=== PATIENT | female | born 1995 | race Caucasian/White ===

== ENCOUNTER 2023-08-27 21:02 | Outpatient (REF) | payer BC, SELFPAY ==
[2023-08-30 16:10] LABS: Age Gdln ACOG Testing Note (.); IGP, rfx Aptima HPV ASCU Note (.)
== END 2023-08-27 21:03 | disposition home or self-care (01) ==
LOC: LAB 21:02
PROVIDERS: Visit Provider Obstetrics & Gynecology
DX: Z01.419 Encounter for gynecological examination (general) (routine) without abnormal findings (principal)
CPT/HCPCS: G0145

== ENCOUNTER 2024-09-01 21:26 | Outpatient (REF) | payer BC, SELFPAY ==
--- OUTSIDE RECORDS SUMMARY | 2024-09-01 21:29 | XMS_ITS | CCD ---
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 Name Role Phone Ashley Mulligan Unavailable Unavailable Ashley Mulligan Unavailable Unavailable SONI ROGERS~[phone] UNKNOWN Unavailable Un available MISJuana, DR DODD Primary Care Unavailable ROHIT ., DR ADAIR Admitting Unavailable ROHIT ., DR ADAIR Attending Unavailable ROHIT ., DR ADAIR Consulting Unavailable MANA BEE Attending Unavailable UMESH BERMUDEZ Attending Unavailable Allergies Allergy Classification Reported Allergen(s) Allergy Type Date of Onset Reaction(s) Facility (1 source) Penicillin Drug Allergy [facility] Repository Problems Problem Classification Problem Date Documented Da te Episodic/Chronic Other screening for suspected conditions (not mental disorders or infectious disease) (4 sources) Encounter for screening for malignant neoplasm of cervix; Translations: [ENC SCREENING MALIG NEOPLASM CERV] Onset: 08-21-2022 Episodic Results Test Name Value Interpretation Reference Range Facil ity PAP ACOG PANEL 2: 21 to 29on 08-28-2022 . . [facility] Comment on above: Result Comment: Performed at: WB Performed By: #### [id number] #### [facility] [address] [place] [address] Dr. Randee Cody Age Gdln ACOG Testing - Normal [facility] Comment on above: Performed By: #### [id number] #### [facility] [address] [address] [address] Randee Cody DIAGNOSIS: Comment [facility] Comment on above: Result Comment: NEGATIVE FOR INTRAEPITHE LIAL LESION OR MALIGNANCY. THIS SPECIMEN WAS RESCREENED PART OF OUR CEMENT BREAKER PROGRAM. Performed at: WB Performed By: #### [id number] #### [facility] [address] [address] [address] Randee Cody Methodology: Comment Normal [facility] Comment on above: Result Comment: This liquid based ThinPr ep(R) pap test was screened with the use of an image guided system. Performed at: WB Performed By: #### [id number] #### [facility] [address] [place] [address] Dr. Randee Cody Note: Comment Normal [facility] Comment on above: Result Comment: The Pap smear is a [place] test designed to aid in the detection of premalignant and malignant conditions of the uterine cervix. It is not a diagnostic procedure and should not be used as the sole means of detecting cervical cancer. Both false-positive and false-negative reports do occur. . Performed at: WB Performed By: #### [id number] #### [facility] [address] [place] [address] Dr. Randee Cody Performed by: Comment Normal [facility] Comment on above: Result Comment: Raya Humphries, Cytotec hnologist (ASCP) Performed at: [facility] Performed By: #### [id number] #### [facility] [address] [place] [address] Dr. Randee Cody QC reviewed by: Comment Normal [facility] Comment on above: Result Comment: Lucien Johnston Dietary Internship (ASCP) Performed at: WB Performed By: #### [id number] #### [facility] [address] [place] [address] Dr. Randee Cody Reflex Criteria: Comment Normal [facility] Comment on above: Result Comment: The HPV DNA reflex crite froylan were not met with this specimen result therefore, no HPV testing was performed. . Performed at: WB Performed By: #### [id number] #### [facility] [address] [address] [address] Randee Cody Specimen adequacy: Comment Normal [facility] Comment on above: Result Comment: Satisfactory for evaluat ion. Endocervical and/or squamous metaplastic cells (endocervical component) are present. Performed at: WB Performed By: #### [id number] #### [facility] [address] [address] [address] Randee Cody Encounters Encounter Date Encounter Type Care Provider Facility Start: 01-01-2024 End: 01-01-2024 ambulatory UMESH BERMUDEZ Not Available Start: 08-27-2023 End: 08-27-2023 ambulatory MANA BEE Not Available Start: 08-21-2022 End: 08-21-[address] DOCTOR BURRIS Facility: Start: 01-04-2018 End: 01-05-2018 Amb[place] Mulligan [place] [place] Date Payer Category Payer Unknown [id number] 2018 Unknown 1996 Unknown [id number] [id number] [id number] 1996 Unknown [id number] 2.16.84 [id number] 1996 Unknown [id number] 2.16.84 [id number] 1974 Unknown [id number] 2.16.84 [id number] 1959 Self-pay [id number] Summary Purpose Family History No Family History Records FoundNo Family History Records FoundNo Family History Records Found Advance Directives No Advanced Directives Records FoundNo Advanced Directives Records FoundNo Advanced Directives Records Found Additional Source Comments INFORMATION SOURCE (unrecogn ized section and content) DATE CREATED AUTHOR 01/05/2018 [facility] DATE CREATED AUTHOR AUTHOR'S ORGANIZ ATION 08/29/2022 [facility] DATE CREATED AUTHOR AUTHOR'S ORGANIZ ATION 01/03/2024 [facility] [place] [facility] FOR RECORDS PERTAINING TO PATIENTS WHO ARE OR HAVE BEEN ENROLLED IN A CHEMICAL DEPENDENCY/SUBSTANCEABUSE PROGRAM, SOME INFORMATION MAY BE OMITTED. This clinical summary was aggregated from multiple sources. Caution should be exercised in using it in the provision of clinical care. This summary normalizes information from multiple sources, and as a consequence, information in this document may materially change the coding, format and clinical context of patient data. In addition, data may be omitted in some cases. CLINICAL DECISIONS SHOULD BE BASED ON THE PRIMARY CLINICAL RECORDS. [employer] [facility]. provides no warranty or guarantee of the accuracy or completeness of information in this document.
== END 2024-09-01 21:27 | disposition home or self-care (01) ==
LOC: LAB 21:26
PROVIDERS: Visit Provider Obstetrics & Gynecology
DX: Z01.419 Encounter for gynecological examination (general) (routine) without abnormal findings (principal)
CPT/HCPCS: 88175

== ENCOUNTER 2024-12-29 13:59 | Outpatient (OUT) | payer BC, SELFPAY ==
[2024-12-29 14:51] LABS: Basophils Percent Auto 0.5 % (0.2-2.0); Eosinophils Absolute Auto 0.1 10^3/uL (0.0-0.7); Eosinophils Percent Auto 1.6 % (0.9-7.0); Hematocrit 34.9 % (36.0-48.0); Hemoglobin 12.1 g/dL (12.0-16.0); Immature Granulocytes Abs Auto 0.02 10^3/uL (0.00-0.03); Immature Granulocytes Pct Auto 0.2 % (0.0-0.5); Lymphocytes Percent Auto 22.1 % (20.5-60.0); Mean Corpuscular HGB Conc 34.7 g/dL (29.9-35.2); Mean Corpuscular Hemoglobin 30.5 pg (26.7-34.0); Mean Corpuscular Volume 87.9 fL (81.0-99.0); Mean Platelet Volume 9.5 fL (9.5-13.5); Monocytes Absolute Auto 0.5 10^3/uL (0.3-0.8); Monocytes Percent Auto 5.3 % (1.7-12.0); Neutrophils Absolute Auto 6.2 10^3/uL (1.4-6.5); Neutrophils Percent Auto 70.3 % (43.0-75.0); Platelet Count 332 10^3/uL (150-450); Red Blood Count 3.97 10^6/uL (4.20-5.40); Red Cell Distribution Width 12.9 % (11.0-15.0); White Blood Count 8.8 10^3/uL (4.0-11.0)
[2024-12-29 15:05] LABS: Estimated Average Glucose 105 mg/dL; Glycohemoglobin A1C 5.3 % (4.5-6.2)
[2024-12-29 15:08] LABS: Amphetamine Screen Urine NEGATIVE (NEGATIVE); Barbiturates Screen Urine NEGATIVE (NEGATIVE); Benzodiazepines Screen Urine NEGATIVE (NEGATIVE); Buprenorphine Screen Urine NEGATIVE (NEGATIVE); Cannabinoid Screen Urine NEGATIVE (NEGATIVE); Cocaine Screen Urine NEGATIVE (NEGATIVE); Methadone Screen Urine NEGATIVE (NEGATIVE); Methamphetamines Screen Urine NEGATIVE (NEGATIVE); Opiate Screen Urine NEGATIVE (NEGATIVE); Oxycodone Screen Urine NEGATIVE (NEGATIVE); Phencyclidine Screen Urine NEGATIVE (NEGATIVE); Tricyclic Antidepressant Urine NEGATIVE (NEGATIVE)
[2024-12-30 05:07] LABS: HIV Ab/p24 Ag Screen Non Reactive (Non Reactive)
[2024-12-30 06:09] LABS: HBsAg Screen Negative (Negative); HCV Ab Non Reactive (Non Reactive)
[2024-12-30 08:08] LABS: Rubella Antibodies, IgG 1.27 index (Immune >0.99)
[2024-12-30 11:08] LABS: Rapid Plasma Reagin, Quant Non Reactive titer (NonRea<1:1)
== END 2024-12-29 14:00 | disposition home or self-care (01) ==
LOC: LAB 14:02
PROVIDERS: Visit Provider Obstetrics & Gynecology
DX: Z34.01 Encounter for supervision of normal first pregnancy, first trimester (principal); N92.6 Irregular menstruation, unspecified
CPT/HCPCS: 36415; 80307; 83036; 85025; 86592; 86762; 86803; 86850; 86900; 86901; 87077; 87086; 87186; 87340; 87389

== ENCOUNTER 2025-04-13 08:28 | Outpatient (OUT) | payer BC, SELFPAY ==
--- OUTSIDE RECORDS SUMMARY | 2025-04-13 08:35 | XMS_ITS | CCD ---
Author Organization [facility] Care Team Providers Care Food Service Name Role Phone Ashley Mulligan Unavailable Unavailable Ashley Mulligan Unavailable Unavailable KEMI ROGERS~[phone] UNKNOWN Unavailable Un available MISC, DR DODD Primary Care Unavailable SUHAIL ., DR ADAIR Admitting Unavailable SUHAIL ., DR ADAIR Attending Unavailable SUHAIL ., DR ADAIR Consulting Unavailable Taylor Roberto NP Unavailable Unavailable Primary Care Provider UnavailMANA Smart Attending Unavailable MANA JANG Attending Unavailable MANA JANG Attending Unavailable MANA JANG Referring Unavailable KEMI REGAN Attending Unavailable Allergies Allergy Classification Reported Allergen(s) Allergy Type Date of Onset Reaction(s) Facility (1 source) Penicillin Drug Allergy [facility] Repository (18 sources) Penicillin G Drug Allergy 08-22-2023 Anaphylaxis [facility] Medications Current Medications Medication Drug Class(es) Dates Sig (Normalized) Sig (Original) magnesium oxide 400 mg oral tablet (4 sources) Start: 02-05-2025 End: 03-07-2025 take 1 tablet by mouth once daily magnesium oxide (Mag-Ox) 400 MG tablet Indications: Nonintractable headache, unspecified chronicity pattern, unspecified headache type Take 1 tablet (400 mg) by mouth Daily 30 tablet 6 02/05/2025 03/07/2025 Active nitrofurantoin, macrocrystals 25 mg / nitrofurantoin, monohydrate 75 mg oral capsule (2 sources) Nitrofuran Antibacterial Start: 01-12-2025 End: 01-19-2025 take 1 capsule by mouth in the morning nitrofurantoin, macrocrystal-monohy drate, (Macrobid) 100 MG capsule Indications: Urinary tract infection without hematuria, site unspecified Take 1 capsule (100 mg) by mouth in the morning and 1 capsule (100 mg) before bedtime. Do all this for 7 days. 14 capsule 01/12/2025 01/19/2025 Active ondansetron 4 mg oral tablet (11 sources) Serotonin-3 Receptor Antagonist Start: 01-12-2025 take 1 tablet by mouth every six hours as needed for nausea and vomiting and nausea and nausea ondansetron (Zofran) 4 MG tablet Indications: Nausea Take 1 tablet (4 mg) by mouth every 6 (six) hours if needed for nausea or vomiting for up to 30 doses Take 1 tablet by mouth every 6 hours as needed for nausea. 30 tablet 1 01/12/2025 Active MV-Min-Fe Fum-FA-DHA ( 1 PO) (14 sources) MV-Min- Fe Fum-FA-DHA ( 1 PO) Take 1 tablet by mouth Daily Active Problems Problem Classification Problem Date Documented Date Episodic/Chronic Immunizations and screening for infectious disease (2 sources) Exposure to sexually transmissible disorder; Translations: [Contact with and (suspected) exposure to infections with a predominantly sexual mode of transmission] 02-11-2025 Episodic Menstrual disorders (1 source) Missed period; Translations: [Irregular menstruation, unspecified] 12-11-2024 Chronic Nausea and vomiting (2 sources) Nausea; Translations: [Nausea] 01-12-2025 Episodic Other female genital disorders (2 sources) Vaginal discharge; Translations: [Other specified noninflammatory disorders of vagina] 02-11-2025 Episodic Other and delivery including normal (10 sources) ; Translations: [Encounter for supervision of normal , unspecified, unspecified trimester] 12-11-2024 Episodic Other screening for suspected conditions (not mental disorders or infectious disease) (8 sources) Encounter for screening for malignant neoplasm of cervix; Translations: [Patient encounter status] Onset: 08-21-2022 Episodic Residual codes; unclassified (2 sources) Gestation period, 13 weeks; Translations: [13 weeks gestation of ] 01-12-2025 Episodic Residual codes; unclassified (2 sources) Gestation period, 17 weeks; Translations: [17 weeks gestation of ] 02-11-2025 Episodic Residual codes; unclassified (2 sources) Gestation period, 21 weeks; Translations: [21 weeks gestation of ] 09-03-2025 Episodic Residual codes; unclassified (2 sources) Gestation period, 25 weeks; Translations: [25 weeks gestation of ] 04-09-2025 Episodic Urinary tract infections (2 sources) Urinary tract infectious disease; Translations: [Urinary tract infection, site not specified] 01-12-2025 Episodic Results Test Name Value Interpretation Reference Range Facility Urinalysis macro (dipstick) panel (U)on 04-09-2025 Bilirubin, UA Negative Negative - 4(70) +++ mg/dL [facility] Blood, UA Negative Negative - 50 Dennis/mcL [facility] Clarity, UA Cloudy [facility] re Color, UA Yellow [facility] Glucose, UA Negative Negative - 1999(110) ++++ mg/dL [facility] Interpretation and review of laboratory results Abnormal [facility] Ketones, UA Negative Negative - 160(16) ++++ mg/dL [facility] Leukocytes, UA Negative Negative - 500+++ Wilman/mcL [facility] Nitrite, UA Negative Negative - Positive [facility] pH, UA 8 5 - [address] [facility] e Protein, UA Positive Negative - 1999(20) ++++ mg/dL [facility] Spec Grav, UA 1.01 1 - 1.03 [facility] Urobilinogen, UA 1.0 0.2 - 12 mg/dL [facility] RECURRENT VAGINITIS (HTRX)on 02-12-2025 ATOPOBIUM VAGINAE 0 [facility] ATOPOBIUM VAGINAE Not detected [facility] BVAB 2,3 (BACTERIAL VAGINOSIS ASSOCIATED BACTERIA 2, 3); MOBILUNCUS SPP 0 [facility] BVAB 2,3 (BACTERIAL VAGINOSIS ASSOCIATED BACTERIA 2, 3); MOBILUNCUS SPP Not detected [facility] ABIOLA ALBICANS, PARAPSILOSIS, TROPICALIS 0 [facility] ABIOLA ALBICANS, PARAPSILOSIS, TROPICALIS Not detected [facility] ABIOLA GLABRATA 0 [facility] lthcare ABIOLA GLABRATA Not detected [facility] ealthcare ABIOLA KRUSEI 0 [facility] hcare ABIOLA KRUSEI Not detected [facility] [place] CHLAMYDIA TRACHOMATIS 0 [facility] CHLAMYDIA TRACHOMATIS Not detected [facility] GARDNERELLA VAGINALIS 0 [facility] GARDNERELLA VAGINALIS Not detected [facility] MEGASPHAERA (TYPES 1, 2) 0 [facility] MEGASPHAERA (TYPES 1, 2) Not detected [facility] MYCOPLASMA GENITALIUM 0 [facility] MYCOPLASMA GENITALIUM Not detected [facility] NEISSERIA GONORRHOEAE 0 [facility] NEISSERIA GONORRHOEAE Not detected [facility] TRICHOMONAS VAGINALIS 0 [facility] TRICHOMONAS VAGINALIS Not detected [facility] US OB 14+ WEEKS ANATOMY SCAN on 02-11-2025 US OB 14+ WEEKS ANATOMY SCAN FINDINGS: Comparison December 11, 2024. A single, live intrauterine is present with normal cardiac rate of 153 beats per minute. Normal activity and amniotic fluid volume. Morphology is grossly normal. The placenta is posterior, inferior aspect 4.2 cm from the closed internal cervical os (cervical length 4.5 cm). The current sonographic age is 21 weeks and 4 days, based on the following measurements: BPD 5.0 cm (21 weeks, 2 days) Head Circumference 18.9 cm (21 weeks, 1 day) Abdominal Circumference 16.4 cm (21 weeks, 3 days) Femur Length 3.8 cm (22 weeks, 1 days) Presentation Cephalic Placenta Posterior Weight (g) by Percentile 56.8 % * These measurements result in an estimated date of delivery of July 18, 2025. The current estimated weight is 440 grams (1 pound, 0 ounces). IMPRESSION: Single, live intrauterine , current sonographic age of 21 weeks and 4 days, with an estimated date of delivery of July 18, 2025. * Estimated Weight (g) by Percentile is based upon an accurate estimated age based on last menstrual period. TRANSCRIBED BY: ELECTRONICALLY SIGNED BY: Dino Gama MD Normal Not Available Comment on above: Order Comment: US OB ANATOMY SINGLE W US OB CERVICAL LENGTH Estimated Date of Delivery: 07/19/25 Gestational Age as of 02/11/2025: 17w3d Urinalysis macro (dipstick) panel (U)on 02-11-2025 Bilirubin, UA Negative Negative - 4(70) +++ mg/dL [facility] Blood, UA Negative Negative - 50 Dennis/mcL [facility] Clarity, UA Clear [facility] re Color, UA Yellow [facility] Glucose, UA Negative Negative - 2000(110) ++++ mg/dL [facility] Interpretation and review of laboratory results Normal [facility] Ketones, UA Negative Negative - 160(16) ++++ mg/dL [facility] Leukocytes, UA Negative Negative - 500+++ Wilman/mcL [facility] Nitrite, UA Negative Negative - Positive [facility] pH, UA 6 5 - 9 [facility] Protein, UA Negative Negative - 1999(20) ++++ mg/dL [facility] Spec Grav, UA 1.01 1 - 1.03 [facility] Urobilinogen, UA 1.0 0.2 - 12 mg/dL [facility] Urinalysis macro (dipstick) panel (U)on 01-12-2025 Bilirubin, UA Negative Negative - 4(70) +++ mg/dL [facility] Blood, UA Negative Negative - 50 Dennis/mcL [facility] Clarity, UA Clear [facility] re Color, UA Yellow [facility] e Glucose, UA Negative Negative - 1999(110) ++++ mg/dL [facility] Interpretation and review of laboratory results Abnormal [facility] Ketones, UA Negative Negative - 160(16) ++++ mg/dL [facility] Leukocytes, UA Negative Negative - 500+++ Wilman/mcL [facility] Nitrite, UA Negative Negative - Positive [facility] pH, UA 6.5 5 - 9 [facility] Protein, UA Trace Negative - 1999(20) ++++ mg/dL [facility] Spec Grav, UA 1.01 1 - 1.03 [facility] Urobilinogen, UA 0.2 0.2 - 12 mg/dL [facility] ALL CBC WITH AUTO DIFFon BASOPHILS ABSOLUTE AUTO 0 [facility] Basophils/100 WBC (Bld) 0.5 % 0.2 - 2.0 % [facility] Eosinophils/100 WBC (Bld) 1.6 % 0.9 - 7.0 % [facility] Erythrocyte distribution width (RBC) [Ratio] 12.9 % 11.0 - 15.0 % [facility] Hematocrit (Bld) [Volume fraction] 34.9 % Low 36.0 - 48.0 % [facility] Hemoglobin (Bld) [Mass/Vol] 12.1 g/dL 12.0 - 16.0 g/dL [facility] IMMATURE GRANULOCYTES ABS AUTO 0.02 [facility] Immature granulocytes/100 WBC (Bld) 0.2 % 0.0 - 0.5 % [facility] Interpretation and review of laboratory results Abnormal [facility] LYMPHOCYTES ABSOLUTE AUTO 2 [facility] Lymphocytes/100 WBC (Bld) 22.1 % 20.5 - 60.0 % [facility] MCH (RBC) [Entitic mass] 30.5 pg 26.7 - 34.0 pg [facility] MCHC (RBC) [Mass/Vol] 34.7 g/dL 29.9 - 35.2 g/dL [facility] MCV (RBC) [Entitic vol] 87.9 fL 81.0 - 99.0 fL [facility] MONOCYTES ABSOLUTE AUTO 0.5 [facility] Monocytes/100 WBC (Bld) 5.3 % 1.7 - 12.0 % [facility] NEUTROPHILS ABSOLUTE AUTO 6.2 [facility] Neutrophils/100 WBC (Bld) 70.3 % 43.0 - 75.0 % [facility] Platelet mean volume (Bld) [Entitic vol] 9.5 fL 9.5 - 13.5 fL [facility] are TBH EO # 0.1 [facility] TBH PLT 332 [facility] TB RBC 3.97 Low [facility] TBH WBC 8.8 [facility] HCG ( test) Ql (U)o n 12-11-2024 Interpretation and review of laboratory results Abnormal [facility] Preg Test, Ur Positive Negative [facility] US OB TRANSVAGINALon 025 US OB TRANSVAGINAL EXAM: US OB TRANSVAGINAL HISTORY: Dating. COMPARISON: None available. TECHNIQUE: Two-dimensional transvaginal grayscale ultrasound imaging of the pelvis was performed. FINDINGS: The uterus demonstrates a normal homogeneous echotexture. The cervix measures 3.9 cm in length and the cervical os is closed. The bilateral ovaries are not visualized. No fluid is present within the cul-de-sac. There is a single, live intrauterine gestation identified with a heart rate of 173 beats per minute and a crown-rump length measurement of 1.8 cm, correlating to a gestational age of 8 weeks 2 days (+/- 5 days). There is no subchorionic hemorrhage visualized. A yolk sac is visualized. IMPRESSION: 1. Single, live intrauterine gestation 8 weeks, 4 days by LMP. Today's ultrasound measurements correlate with a gestational age of 8 weeks 2 days (+/- 5 days). JOSE by today's ultrasound is 07/21/2025. 2. Bilateral ovaries not visualized. Interpreted by: Electronically signed by JOSIE FONTANA II, MD, PHD at 12-Dec-2024 08:26:33 AM [facility] Normal Not Available Comment on above: Order Comment: US OB TRANSVAGINAL No LMP recorded. Urinalysis macro (dipstick) panel (U)on 12-11-2024 Bilirubin, UA Negative Negative - 4(70) +++ mg/dL [facility] Blood, UA Negative Negative - 50 Dennis/mcL [facility] Clarity, UA Clear [facility] Enclarity[facility] re Color, UA Yellow [facility] Gengo e Glucose, UA Negative Negative - 1999(110) ++++ mg/dL [facility] Interpretation and review of laboratory results Normal [facility] Ketones, UA Negative Negative - 160(16) ++++ mg/dL [facility] Leukocytes, UA Negative Negative - 500+++ Wilman/mcL [facility] Nitrite, UA Negative Negative - Positive [facility] pH, UA 5.5 5 - 9 [facility] Gengo e Protein, UA Negative Negative - 1999(20) ++++ mg/dL [facility] Spec Grav, UA 1.02 1 - 1.03 [facility] Urobilinogen, UA 1.0 0.2 - 12 mg/dL [facility] IGP,APTIMA HPV,AGE GDLNon AGE GDLN ACOG TESTING Note . [facility] Comment on above: TESTS RESULT FLAG UN ITS REF RANGE LAB Clinician Provided Cytology Information Source.............Cervix;Endocervix No. of containers..01 ThinPrep Vial Age Algo ACOG Darlene... -06 08 FLAG LEGEND: L-Low Normal,H-High Normal,LL-Alert Low,HH-Alert High <-Panic Low,>-Panic High,A-Abnormal,AA-Critical Abnormal Performed at: 01 =G [facility] [address] [place] [address] Aga Cade MD, IGP, RFX APTIMA HPV ASCU Note . [facility] Comment on above: TESTS RESULT FLAG UN ITS REF RANGE LAB DIAGNOSIS: 02 NEGATIVE FOR INTRAEPITHELIAL LESION OR MALIGNANCY. Specimen adequacy: 02 Satisfactory for evaluation. Endocervical and/or squamous metaplastic cells (endocervical component) are present. Performed by: Carter Dunn, Lamination Operator ([facility]) . 02 Note: Note 03 The Pap smear is a screening test designed to aid in the detection of premalignant and malignant conditions of the uterine cervix. It is not a diagnostic procedure and should not be used as the sole means of detecting cervical cancer. Both false-positive and false-negative reports do occur. Test Methodology: Note 03 This liquid based ThinPrep(R) pap test was screened with the use of an image guided system. . 02 The HPV DNA reflex criteria were not met with this specimen result therefore, no HPV testing was performed. FLAG LEGEND: L-Low Normal,H-High Normal,LL-Alert Low,HH-Alert High <-Panic Low,>-Panic High,A-Abnormal,AA-Critical Abnormal Performed at: 02 [facility] [address] [address] [place] [address] Pa Schilling MD, 03 WB [facility] [address] [address] Aga Cade MD, Performed at: =G - [facility] [address] [id number] Straightedge Machine Operator Helper: Aga Cade MD, Phone: [phone] Performed at: [facility] [address] [address] [place], [place] [id number] Straightedge Machine Operator Helper: Pa Schilling MD, Phone: [phone] BRUSH-SPATULA CERVIX ENDOCERVIX [facility] Cytology Cervical or vaginal smear or scraping studyOrdered By: Winifred Bhatia on 08-27-2023 [facility] PAP ACOG PANEL 2: 21 to 29on 08-28-2022 . . Normal [facility] Comment on above: Result Comment: Perf ormed at: WB Performed By: #### [id number] #### [facility] [address] [place] [address] Dr. Randee Cody Age Gdln ACOG Testing - Normal [facility] Comment on above: Performed By: #### [id number] #### [facility] [address] [place] [address] Dr. Randee Cody DIAGNOSIS: Comment Normal [facility] Comment on above: Result Comment: NEGA TIVE FOR INTRAEPITHELIAL LESION OR MALIGNANCY. THIS SPECIMEN WAS RESCREENED PART OF OUR STONE SANDBLASTER PROGRAM. Performed at: WB Performed By: #### [id number] #### [facility] [address] [place] [address] Dr. Randee Cody Methodology: Comment Normal [facility] Comment on above: Result Comment: This liquid based ThinPrep(R) pap test was screened with the use of an image guided system. Performed at: WB Performed By: #### [id number] #### [facility] [address] [address] [address] Randee Cody Note: Comment Normal [facility] Comment on above: Result Comment: The Pap smear is a screening test designed to aid in the detection of premalignant and malignant conditions of the uterine cervix. It is not a diagnostic procedure and should not be used as the sole means of detecting cervical cancer. Both false-positive and false-negative reports do occur. . Performed at: WB Performed By: #### [id number] #### [facility] [address] [address] [address] Randee Cody Performed by: Comment Normal [facility] Comment on above: Result Comment: Martha Humphries, Lamination Operator (ASCP) Performed at: [facility] Performed By: #### [id number] #### [facility] [address] [address] [address] Randee Cody QC reviewed by: Comment Normal [facility] Comment on above: Result Comment: Fernanda Mena, Supervisory Lamination Operator (ASCP) Performed at: WB Performed By: #### [id number] #### [facility] [address] [address] [address] Randee Cody Reflex Criteria: Comment Normal [facility] Comment on above: Result Comment: The HPV DNA reflex criteria were not met with this specimen result therefore, no HPV testing was performed. . Performed at: WB Performed By: #### [id number] #### [facility] [address] [address] [address] Randee Cody Specimen adequacy: Comment Normal [facility] Comment on above: Result Comment: Sati sfactory for evaluation. Endocervical and/or squamous metaplastic cells (endocervical component) are present. Performed at: WB Performed By: #### [id number] #### [facility] [address] [place] [address] Dr. Randee Cody Vital Signs Date Time Vital Sign Value Performing Clinician Faci mayry 04-09-2025 08:57-0400 Body mass index (BMI) [Ratio] 37.13 kg/m2 Le Thompson VEGETABLE I FARMWORKER Work Phone: [facility] 04-09-2025 08:57-0400 Body weight 101.21 kg Le Thompson VEGETABLE I FARMWORKER Work Phone: [facility] 04-09-2025 08:57-0400 Diastolic blood pressure 78 mm[Hg] Le Thompson VEGETABLE I FARMWORKER Work Phone: [facility] 04-09-2025 08:57-0400 Systolic blood pressure 130 mm[Hg] Le Thompson VEGETABLE I FARMWORKER Work Phone: [facility] 03-11-2025 09:46-0400 Body mass index (BMI) [Ratio] 36.41 kg/m2 Kemi Regan PA Work Phone: [facility] 03-11-2025 09:46-0400 Body weight 99.25 kg Kemi [place] PA Work Phone: [facility] 03-11-2025 09:46-0400 Diastolic blood pressure 82 mm[Hg] Kemi [place] PA Work Phone: [facility] 03-11-2025 09:46-0400 Systolic blood pressure 126 mm[Hg] Kemi Ritu PA Work Phone: [facility] 02-11-2025 14:04-0400 Body mass index (BMI) [Ratio] 35.3 kg/m2 Mana Suhail DO Work Phone: [facility] 02-11-2025 14:04-0400 Body weight 96.22 kg Mana Suhail DO Work Phone: [facility] 02-11-2025 14:04-0400 Diastolic blood pressure 72 mm[Hg] Mana Suhail DO Work Phone: [facility] 02-11-2025 14:04-0400 Systolic blood pressure 124 mm[Hg] Mana Suhail DO Work Phone: [facility] 01-12-2025 09:44-0400 Body mass index (BMI) [Ratio] 34.11 kg/m2 Mana Suhail DO Work Phone: [facility] 01-12-2025 09:44-0400 Body weight 92.99 kg Mana Suhail DO Work Phone: [facility] 01-12-2025 09:44-0400 Diastolic blood pressure 72 mm[Hg] Mana Suhail DO Work Phone: [facility] 01-12-2025 09:44-0400 Systolic blood pressure 120 mm[Hg] Mana Suhail DO Work Phone: [facility] 12-11-2024 14:50-0400 Body mass index (BMI) [Ratio] 34.11 kg/m2 [facility] 12-11-2024 14:50-0400 Body weight 92.99 [facility] 09-01-2024 14:11-0500 Body mass index (BMI) [Ratio] 35.41 kg/m2 Mana Suhail DO Work Phone: [facility] 09-01-2024 14:11-0500 Body weight 96.53 kg Mana Suhail DO Work Phone: [facility] 09-01-2024 14:11-0500 Diastolic blood pressure 74 mm[Hg] Mana Suhail DO Work Phone: [facility] 09-01-2024 14:11-0500 Systolic blood pressure 116 mm[Hg] Mana Suhail DO Work Phone: [facility] Healthcare Encounters Encounter Date Encounter Type Care Provider Facility Start: 04-09-2025 End: 04-09-2025 Fransico flowssanti Thompson NP Work Phone: [facility] Franny RODRIGUEZ Start: 04-09-2025 End: 04-09-2025 Fransico Thompson NP Work Phone: [facility] Franny OBGYN Start: 04-09-2025 End: 04-09-2025 flow sheet Le Thompson NP Work Phone: [facility]AVANNA[facility] Comment on above: 25 weeks gestation o f ([facility]); Second trimester ([facility]); Diabetes mellitus screening Start: 03-11-2025 End: 03-11-2025 flow sheet Kemi MADDOX Work Phone: [facility] RODRIGUE[facility] Comment on above: Second trimester pre gnancy ([facility]); 21 weeks gestation of ([facility]) Start: 03-11-2025 End: 03-11-2025 ambulatory KEMI REGAN Not Available Start: 02-11-2025 End: 02-11-2025 Bamboo flowsheet Mana Suhail DO Work Phone: [facility]BSAV[facility] Start: 02-11-2025 End: 02-12-2025 Bamboo flowsheet Mana Suhail DO Work Phone: [facility] Start: 02-11-2025 End: 02-12-2025 External Result Encounter Mana Suhail DO Work Phone: [facility] Unsolicited Start: 02-11-2025 End: 02-11-2025 flow sheet Mana Suhail DO Work Phone: [facility] RODRIGUEZ Comment on above: 17 weeks gestation o f ([facility]); Second trimester ([facility]); Screening, , for anatomic survey ([facility]); Exposure to STD; Vaginal discharge Start: 02-11-2025 End: 02-11-2025 ambulatory MANA SUHAIL Not Available Start: 01-12-2025 End: 01-12-2025 Bamboo flowsheet Mana Suhail DO Work Phone: [facility] Start: 01-12-2025 End: 01-12-2025 Bamboo flowsheet Mana Suhail DO Work Phone: [facility] Start: 01-12-2025 End: 01-12-2025 flow sheet Mana Suhail DO Work Phone: [facility] Comment on above: Urinary tract infect ion without hematuria, site unspecified (Primary Dx); 13 weeks gestation of ([facility]); Second trimester ([facility]); Nausea Start: 01-12-2025 End: 01-12-2025 ambulatory MANA SUHAIL Not Available Start: 12-29-2024 End: 12-29-2024 [facility] Result Encounter Mana Suhail DO Work Phone: [facility] Unsolicited Start: 12-29-2024 End: 12-29-2024 [facility] Result Encounter Mana Suhail DO Work Phone: [facility] Unsolicited Start: 12-11-2024 End: 12-11-2024 Office outpatient visit 5 minutes [facility] Ob Suhail Nurse [facility] Comment on above: GA: 8w4d Start: 12-11-2024 End: 12-11-2024 ambulatory MANA SUHAIL Not Available Start: 09-01-2024 End: 09-01-2024 Bamboo flowsheet Mana Suhail DO Work Phone: [facility] Start: 09-01-2024 End: 09-05-2024 Bamboo flowsheet Mana Suhail DO Work Phone: [facility] Start: 09-01-2024 End: 09-05-2024 [facility] Result Encounter Mana Suhail DO Work Phone: [facility] Unsolicited Start: 09-01-2024 End: 09-01-2024 Patient encounter procedure Mana Suhail DO Work Phone: [facility] Work Phone: Start: 09-01-2024 End: 09-01-2024 Periodic preventive med est patient 18-39 yrs Mana Suhail DO Work Phone: [facility] Comment on above: Well woman exam with routine gynecological exam Start: 09-01-2024 End: 09-01-2024 ambulatory MANA SUHAIL Not Available Start: 08-21-2022 End: 08-21-[address] DOCTOR BURRIS Facility: Start: 01-04-2018 End: 01-05-2018 Ambulatory Ashley Mullgian Facility:[facility] Procedures Date Procedure Procedure Detail Performing Clinician Start: 04-09-2025 Urnls dip stick/tabl et rgnt non-auto w/o micrscp Le Thompson VEGETABLE I FARMWORKER Work Phone: Start: 02-11-2025 RECURRENT VAGINITIS (HTRX) Mana Suhail DO Work Phone: Start: 02-11-2025 Urnls dip stick/tabl et rgnt non-auto w/o micrscp Mana Suhail DO Work Phone: Start: 01-12-2025 Urnls dip stick/tabl et rgnt non-auto w/o micrscp Mana Suhail DO Work Phone: Start: 12-29-2024 ALL CBC WITH AUTO DIFF Mana Suhail DO Work Phone: Start: 12-11-2024 End: 12-11-2024 Urnls dip stick/tablet rgnt non-auto w/o [facility] Mana Suhail DO Work Phone: Start: 09-01-2024 IGP,APTIMA HPV,AGE GDLN Mana Suhail DO Work Phone: Start: 08-27-2023 Cytp cerv/vag auto t hin layer prep mnl screen Mana Suhail DO Work Phone: Plan of Treatment Date Care Activity Detail Author Start: 09-07-2025 End: 09-07-2025 Patient encounter procedure [facility] Start: 04-30-2025 End: 04-30-2025 Patient encounter procedure 04/30/2025 8:50 AM EDT Routine [facility] [address] [place] [address] [place], Kemi, PA [address] [place] [address] JACQUELINE RODRIGUEZ Start: 04-09-2025 End: 04-09-2026 CBC panel - Blood by Automated count CBC Lab Routine Diabetes mellitus screening Expected: 04/09/2025 (Approximate), Expires: 04/09/2026 [facility] Work Phone: Comment on above: Expected: 04/09/2025 (Approximate), Expires: 04/09/2026 Start: 04-09-2025 End: 04-09-2026 Measurement of glucose 1 hour after glucose challenge for glucose tolerance test Glucose tolerance, 1 hour Lab Routine Diabetes mellitus screening Expected: 04/09/2025 (Approximate), Expires: 04/09/2026 [facility] Comment on above: Expected: 04/09/2025 (Approximate), Expires: 04/09/2026 Start: 04-09-2025 End: 04-09-2025 Patient encounter procedure JACQUELINE RODRIGUEZ Comment on above: Arrived Start: 03-11-2025 End: 03-11-2025 Patient encounter procedure 03/11/2025 9:50 AM EDT Routine [facility]QUELINE [facility]UE[facility] [address] [facility] [place] [id number] Kemi Regan PA [address] [place] [address] JACQUELINE RODRIGUEZ Start: 03-11-2025 End: 03-11-2025 Professional / ancillary services management 03/11/2025 8:30 AM EDT Ancillary Procedure JACQUELINE RODRIGUEZ [address] [place] [id number] JACQUELINE RODRIGUEZ Start: 02-11-2025 End: 03-14-2025 Alpha fetoprotein, maternal Alpha fetoprotein, maternal Lab Routine 17 weeks gestation of ([facility]) Second trimester ([facility]) Expected: 02/11/2025 (Approximate), Expires: 03/14/2025 [facility] Comment on above: Expected: 02/11/2025 (Approximate), Expires: 03/14/2025 Start: 02-11-2025 End: 05-14-2025 US for US OB 14+ weeks anatomy scan Imaging Routine Screening, , for anatomic survey ([facility]) Expected: 02/11/2025, Expires: 05/14/2025 [facility] Comment on above: Expected: 02/11/2025 , Expires: 05/14/2025 Start: 02-11-2025 End: 02-11-2025 Patient encounter procedure 02/11/2025 1:50 PM EDT Routine JACQUELINE [place] OBS[facility]NA[facility] [address] [place] [phone] Mana Jang DO [address] [place] [address] Arrived [facility] Comment on above: Arrived Start: 01-12-2025 End: 01-12-2025 Patient encounter procedure [facility] Comment on above: Arrived Start: 12-11-2024 End: 12-11-2025 ABO/Rh ABO/Rh Lab Routine Missed menses , unspecified gestational age Expected: 12/11/2024 (Approximate), Expires: 12/11/2025 [facility] Comment on above: Expected: 12/11/2024 (Approximate), Expires: 12/11/2025 Start: 12-11-2024 End: 12-11-2025 Blood type and Indirect antibody screen panel - Blood Type and screen Lab Routine Missed menses , unspecified gestational age Expected: 12/11/2024 (Approximate), Expires: 12/11/2025 [facility] Work Phone: Comment on above: Expected: 12/11/2024 (Approximate), Expires: 12/11/2025 Start: 12-11-2024 End: 12-11-2025 Drugs of abuse panel - Urine by Screen method Rapid drug screen, urine Lab Routine , unspecified gestational age Encounter for supervision of normal first in first trimester Expected: 12/11/2024 (Approximate), Expires: 12/11/2025 [facility] Comment on above: Expected: 12/11/2024 (Approximate), Expires: 12/11/2025 Start: 09-01-2024 End: 09-01-2024 Patient encounter procedure 09/01/2024 2:00 PM EST Office Visit [facility] [address] [place] [phone] Mana Jang DO [address] [place] [address] Arrived [facility] Comment on above: Arrived Start: 03-09-2024 Influenza vaccination Influenza Vacc ine (#1) [facility] Bacteria identified in Urine by Culture Urine culture Microbiology Routine Missed menses Ordered: 12/11/2024 [facility] Comment on above: Ordered: 12/11/2024 CBC W Auto Different ial panel - Blood CBC and differential Lab Routine Missed menses , unspecified gestational age Ordered: 12/11/2024 [facility] Comment on above: Ordered: 12/11/2024 CHLAMYDIA TRACHOMATI S (GENITO/STI) CHLAMYDIA TRACHOMATIS (GENITO/STI) Lab Routine Exposure to STD Ordered: 02/11/2025 [facility] Comment on above: Ordered: 02/11/2025 Cytology Cervical or vaginal smear or scraping study Pap Smear Pathology and Cytology Routine Well woman exam with routine gynecological exam Ordered: 09/01/2024 [facility] Work Phone: Comment on above: Ordered: 09/01/2024 Hemoglobin A1c/Hemoglobin.total in Blood Hemoglobin A1c Lab Routine Missed menses , unspecified gestational age Ordered: 12/11/2024 [facility] Comment on above: Ordered: 12/11/2024 Hepatitis B virus surface Ag [Presence] in Serum or Plasma by Immunoassay Hepatitis B surface antigen Lab Routine Missed menses , unspecified gestational age Ordered: 12/11/2024 [facility] Comment on above: Ordered: 12/11/2024 Hepatitis C virus Ab [Presence] in Serum or Plasma by Immunoassay Hepatitis C antibody Lab Routine Missed menses , unspecified gestational age Ordered: 12/11/2024 [facility] Comment on above: Ordered: 12/11/2024 HIV-1/HIV-2 antigen/antibody combination immunoassay HIV-1 and HIV-2 antibodies Lab Routine Missed menses , unspecified gestational age Ordered: 12/11/2024 [facility] Comment on above: Ordered: 12/11/2024 Neisseria gonorrhoea e DNA [Presence] in Unspecified specimen by SHAE with probe detection Neisseria gonorrhea DNA probe, direct Lab Routine Exposure to STD Ordered: 02/11/2025 [facility] Comment on above: Ordered: 02/11/2025 Reagin Ab [Presence] in Serum by RPR RPR Lab Routine Missed menses , unspecified gestational age Ordered: 12/11/2024 [facility] Comment on above: Ordered: 12/11/2024 Rubella antibody, IgG Rubella an tibody, IgG Lab Routine Missed menses , unspecified gestational age Ordered: 12/11/2024 [facility] Comment on above: Ordered: 12/11/2024 SURESWAB(R) ADVANCED VAGINITIS PLUS, TMA SURESWAB(R) ADVANCED VAGINITIS PLUS, TMA Pathology and Cytology Routine Vaginal discharge Ordered: 02/11/2025 [facility] Work Phone: Comment on above: Ordered: 02/11/2025 Payers Date Payer Category Payer [facility] [id number] 2023 Unknown [id number] 2018 Unknown 1996 Unknown [id number] 1996 Unknown [id number] 1996 Unknown [id number] 1996 Unknown [id number] 1996 Unknown [id number] 1996 Unknown [id number] 1996 Unknown [id number] 1996 Unknown [id number] 1974 Unknown [id number] 1959 Self-pay [id number] Social History Date Type Detail Facility Start: 08-26-2023 Tobacco smoking stat [facility] Never smoked tobacco [facility] Start: 08-26-2023 Tobacco use and exposure Smokeless t obacco non-user [facility] Start: 01-01-2024 End: 02-11-2025 Alcoholic beverage intake Current drinker of alcohol (finding) [facility] Start: 01-01-2024 End: 09-01-2024 History of Social function [facility] Start: 01-01-2024 End: 09-01-2024 Tobacco use panel [facility] Start: 08-26-2023 Alcohol Comment Occasional [facility] Start: 1995 Sex assigned at Not on file [facility] Start: 10-26-2024 [facility] Clinical Notes 09-01-2024 to 04-09-2025 Le Thompson NP - 04/09/2025 9:00 AM TAN Craven - 03/11/2025 9:50 AM Patrice Gunter LPN - 02/11/2025 1:50 PM EDTLe Thompson, PREM - 01/12/2025 9:40 AM EDT Note Date & Type Note Facility 04-09-2025 History of Presen t illness Narrative Reason for Appointment: Patient ID: Madelyn Lopez is a 29 y.o. female who presents for Routine Visit Patient presents today for Return OB appointment. MEDICATIONS Current Outpatient Medications Medication Instructions ondansetron (ZOFRAN) 4 mg, Oral, Every 6 hours PRN, Take 1 tablet by mouth every 6 hours as needed for nausea. MV-Min-Fe Fum-FA-DHA ( 1 PO) 1 tablet, Daily ALLERGIES Allergies Allergen Reactions Penicillin G Anaphylaxis PROBLEMS Active Ambulatory Problems Diagnosis Date Noted No Active Ambulatory Problems Resolved Ambulatory Problems Diagnosis Date Noted No Resolved Ambulatory Problems Past Medical History: Diagnosis Date BCP ( control pills) initiation Encounter for well woman exam Obesity (BMI 30-39.9) Vaginal discharge HISTORY PAST MEDICAL HISTORY SOCIAL HISTORY Past Medical History: Diagnosis Date BCP ( control pills) initiation Encounter for well woman exam Obesity (BMI 30-39.9) Vaginal discharge Social History Tobacco Use Smoking status: Never Smokeless tobacco: Never Substance Use Topics Alcohol use: Yes Comment: Occasional Drug use: Never FAMILY HISTORY No family history on file. SURGICAL HISTORY History reviewed. No pertinent surgical history. REVIEW OF SYSTEMS Review of Systems: Review of Systems Constitutional: Negative. HENT: Negative. Eyes: Negative. Respiratory: Negative. Cardiovascular: Negative. Gastrointestinal: Negative. Genitourinary: Negative. Musculoskeletal: Negative. Skin: Negative. Neurological: Negative. All other systems reviewed and are negative. Hematological: Negative. Endocrine: Negative. Allergic/Immunologic: Negative. OBJECTIVE Objective: Physical Exam Constitutional: Appearance: Normal appearance. She is well-developed. Cardiovascular: Rate and Rhythm: Normal rate and regular rhythm. Pulmonary: Effort: Pulmonary effort is normal. Breath sounds: Normal breath sounds. Abdominal: General: Bowel sounds are normal. There is no distension. Palpations: Abdomen is soft. Tenderness: There is no abdominal tenderness. There is no guarding or rebound. Musculoskeletal: General: No swelling. Normal range of motion. Right lower leg: No edema. Left lower leg: No edema. Neurological: Mental Status: She is alert and oriented to person, place, and time. Skin: General: Skin is warm and dry. Psychiatric: Mood and Affect: Mood normal. Behavior: Behavior normal. Vitals and nursing note reviewed. Exam conducted with a draftsperson present. Vitals: Estimated body mass index is 37.13 kg/m as calculated from the following: Height as of 08/21/22: 5' 5 . Weight as of this encounter: 223 lb 1.9 oz. BP: 130/78 Patient's last menstrual period was 10/12/2024. ASSESSMENT & PLAN ICD-10-CM 1. 25 weeks gestation of ([facility]) Z3A.25 POCT urinalysis dipstick manually resulted 2. Second trimester ([facility]) Z34.92 POCT urinalysis dipstick manually resulted 3. Diabetes mellitus screening Z13.1 CBC Glucose tolerance, 1 hour CBC Glucose tolerance, 1 hour Return OB: Patient presents today for a routine obstetrics appointment. Patient is currently 25w4d . Patient states she is doing well but has complaints of being tired due to current . Patient has verbalizes frequent movement. labor precautions was discussed/given and patient was instructed to perform kick counts three times a day. Orders Placed This Encounter Procedures CBC Glucose tolerance, 1 hour POCT urinalysis dipstick manually resulted Follow Up: Patient is to return to office in 3 week for routine OB appointment. Documented by Le Thompson NP on behalf of: Le Thompson NP documented in this encounter [facility] 03-11-2025 History of Presen t illness Narrative Reason for Appointment: Patient ID: Madelyn Lopez is a 29 y.o. female who presents for Routine Visit Patient presents today for Return OB appointment. MEDICATIONS Current Outpatient Medications Medication Instructions ondansetron (ZOFRAN) 4 mg, Oral, Every 6 hours PRN, Take 1 tablet by mouth every 6 hours as needed for nausea. MV-Min-Fe Fum-FA-DHA ( 1 PO) 1 tablet, Daily ALLERGIES Allergies Allergen Reactions Penicillin G Anaphylaxis PROBLEMS Active Ambulatory Problems Diagnosis Date Noted No Active Ambulatory Problems Resolved Ambulatory Problems Diagnosis Date Noted No Resolved Ambulatory Problems Past Medical History: Diagnosis Date BCP ( control pills) initiation Encounter for well woman exam Obesity (BMI 30-39.9) Vaginal discharge HISTORY PAST MEDICAL HISTORY SOCIAL HISTORY Past Medical History: Diagnosis Date BCP ( control pills) initiation Encounter for well woman exam Obesity (BMI 30-39.9) Vaginal discharge Social History Tobacco Use Smoking status: Never Smokeless tobacco: Never Substance Use Topics Alcohol use: Yes Comment: Occasional Drug use: Never FAMILY HISTORY No family history on file. SURGICAL HISTORY No past surgical history on file. REVIEW OF SYSTEMS Review of Systems: Review of Systems Constitutional: Negative. HENT: Negative. Eyes: Negative. Respiratory: Negative. Cardiovascular: Negative. Gastrointestinal: Negative. Genitourinary: Negative. Musculoskeletal: Negative. Skin: Negative. Neurological: Negative. All other systems reviewed and are negative. Hematological: Negative. Endocrine: Negative. Allergic/Immunologic: Negative. OBJECTIVE Objective: Physical Exam Constitutional: Appearance: Normal appearance. She is normal weight. HENT: Head: Normocephalic. Cardiovascular: Rate and Rhythm: Normal rate. Pulses: Normal pulses. Pulmonary: Effort: Pulmonary effort is normal. Breath sounds: Normal breath sounds. Abdominal: Palpations: Abdomen is soft. Musculoskeletal: General: Normal range of motion. Neurological: General: No focal deficit present. Mental Status: She is alert and oriented to person, place, and time. Psychiatric: Mood and Affect: Mood normal. Behavior: Behavior normal. Thought Content: Thought content normal. Judgment: Judgment normal. Vitals and nursing note reviewed. Vitals: Estimated body mass index is 36.41 kg/m as calculated from the following: Height as of 08/21/22: 5' 5 . Weight as of this encounter: 218 lb 12.8 oz. BP: 126/82 Patient's last menstrual period was 10/12/2024. ASSESSMENT & PLAN ICD-10-CM 1. Second trimester ([facility]) Z34.92 Urine dip 2. 21 weeks gestation of ([facility]) Z3A.21 Urine dip Return OB: Patient presents today for a routine obstetrics appointment. Patient is currently 21w3d . Patient states she is doing well but has complaints of being tired due to current . Patient has verbalizes frequent movement. Orders Placed This Encounter Procedures Urine dip Follow Up: Patient is to return to office in 4 week for routine OB appointment. Documented by TAN Edward on behalf of: TAN Edward documented in this encounter [facility] 02-11-2025 History of Presen t illness Narrative Reason for Appointment: Patient ID: Madelyn Lopez is a 29 y.o. female who presents for No chief complaint on file. Patient presents today for STD Check. and Return OB appointment. MEDICATIONS Current Outpatient Medications Medication Instructions magnesium oxide (MAG-OX) 400 mg, Oral, Daily ondansetron (ZOFRAN) 4 mg, Oral, Every 6 hours PRN, Take 1 tablet by mouth every 6 hours as needed for nausea. MV-Min-Fe Fum-FA-DHA ( 1 PO) 1 tablet, Daily ALLERGIES Allergies Allergen Reactions Penicillin G Anaphylaxis PROBLEMS Active Ambulatory Problems Diagnosis Date Noted No Active Ambulatory Problems Resolved Ambulatory Problems Diagnosis Date Noted No Resolved Ambulatory Problems Past Medical History: Diagnosis Date BCP ( control pills) initiation Encounter for well woman exam Obesity (BMI 30-39.9) Vaginal discharge HISTORY PAST MEDICAL HISTORY SOCIAL HISTORY Past Medical History: Diagnosis Date BCP ( control pills) initiation Encounter for well woman exam Obesity (BMI 30-39.9) Vaginal discharge Social History Tobacco Use Smoking status: Never Smokeless tobacco: Never Substance Use Topics Alcohol use: Yes Comment: Occasional Drug use: Never FAMILY HISTORY No family history on file. SURGICAL HISTORY History reviewed. No pertinent surgical history. REVIEW OF SYSTEMS Review of Systems: Review of Systems Constitutional: Negative. HENT: Negative. Eyes: Negative. Respiratory: Negative. Cardiovascular: Negative. Gastrointestinal: Negative. Genitourinary: Negative. Musculoskeletal: Negative. Skin: Negative. Neurological: Positive for headaches. All other systems reviewed and are negative. Hematological: Negative. Endocrine: Negative. Allergic/Immunologic: Negative. OBJECTIVE Objective: Physical Exam Constitutional: Appearance: Normal appearance. She is well-developed. Genitourinary: Vulva normal. Cardiovascular: Rate and Rhythm: Normal rate and regular rhythm. Pulmonary: Effort: Pulmonary effort is normal. Breath sounds: Normal breath sounds. Abdominal: General: Bowel sounds are normal. There is no distension. Palpations: Abdomen is soft. Tenderness: There is no abdominal tenderness. There is no guarding or rebound. Musculoskeletal: General: No swelling. Normal range of motion. Right lower leg: No edema. Left lower leg: No edema. Neurological: Mental Status: She is alert and oriented to person, place, and time. Skin: General: Skin is warm and dry. Psychiatric: Mood and Affect: Mood normal. Behavior: Behavior normal. Vitals and nursing note reviewed. Exam conducted with a draftsperson present. Vitals: Estimated body mass index is 35.3 kg/m as calculated from the following: Height as of 23: 5' 5 . Weight as of this encounter: 212 lb 1.9 oz. BP: 124/72 Patient's last menstrual period was 10/12/2024. ASSESSMENT & PLAN ICD-10-CM 1. 17 weeks gestation of ([facility]) Z3A.17 POCT urinalysis dipstick manually resulted Alpha fetoprotein, maternal Alpha fetoprotein, maternal 2. Second trimester ([facility]) Z34.92 POCT urinalysis dipstick manually resulted Alpha fetoprotein, maternal Alpha fetoprotein, maternal 3. Screening, , for anatomic survey ([facility]) Z36.89 US OB 14+ weeks anatomy scan US OB 14+ weeks anatomy scan 4. Exposure to STD Z20.2 CHLAMYDIA TRACHOMATIS (GENITO/STI) Neisseria gonorrhea DNA probe, direct 5. Vaginal discharge N89.8 SURESWAB(R) ADVANCED VAGINITIS PLUS, TMA Return OB/Annual Exam: Patient presents today for a annual exam/routine obstetrics appointment. Patient is currently 17w3d . Patient states she is doing well but has complaints of nausea in the morning. Cultures was obtained without difficulty and patient was given orders for anatomy scan and msAFP to be obtained. Pt having headaches during , magnesium not helping. Discussed adding tylenol with codeine, or claritin. Pt advised to apply heat to back of neck, and get a facial or massage to increase lymphatics. Pt voiced understanding. Orders Placed This Encounter Procedures US OB 14+ weeks anatomy scan CHLAMYDIA TRACHOMATIS (GENITO/STI) Neisseria gonorrhea DNA probe, direct Alpha fetoprotein, maternal POCT urinalysis dipstick manually resulted Follow Up: Patient is to schedule annual exam for next year and return to office in 4 weeks for OB appointment. Documented by Zhanna Gunter LPN on behalf of: Mana Jang DO documented in this encounter [facility] 01-12-2025 History of Presen t illness Narrative Reason for Appointment: Patient ID: Madelyn Lopez is a 29 y.o. female who presents for Routine Visit Patient presents today for Return OB appointment. MEDICATIONS Current Outpatient Medications Medication Instructions MV-Min-Fe Fum-FA-DHA ( 1 PO) 1 tablet, Daily ALLERGIES Allergies Allergen Reactions Penicillin G Anaphylaxis PROBLEMS Active Ambulatory Problems Diagnosis Date Noted No Active Ambulatory Problems Resolved Ambulatory Problems Diagnosis Date Noted No Resolved Ambulatory Problems Past Medical History: Diagnosis Date BCP ( control pills) initiation Encounter for well woman exam Obesity (BMI 30-39.9) Vaginal discharge HISTORY PAST MEDICAL HISTORY SOCIAL HISTORY Past Medical History: Diagnosis Date BCP ( control pills) initiation Encounter for well woman exam Obesity (BMI 30-39.9) Vaginal discharge Social History Tobacco Use Smoking status: Never Smokeless tobacco: Never Substance Use Topics Alcohol use: Yes Comment: Occasional Drug use: Never FAMILY HISTORY No family history on file. SURGICAL HISTORY History reviewed. No pertinent surgical history. REVIEW OF SYSTEMS Review of Systems: Review of Systems Constitutional: Negative. HENT: Negative. Eyes: Negative. Respiratory: Negative. Cardiovascular: Negative. Gastrointestinal: Negative. Genitourinary: Negative. Musculoskeletal: Negative. Skin: Negative. Neurological: Positive for dizziness. All other systems reviewed and are negative. Hematological: Negative. Endocrine: Negative. Allergic/Immunologic: Negative. OBJECTIVE Objective: Physical Exam Constitutional: Appearance: Normal appearance. She is well-developed. Cardiovascular: Rate and Rhythm: Normal rate and regular rhythm. Pulmonary: Effort: Pulmonary effort is normal. Breath sounds: Normal breath sounds. Abdominal: General: Bowel sounds are normal. There is no distension. Palpations: Abdomen is soft. Tenderness: There is no abdominal tenderness. There is no guarding or rebound. Musculoskeletal: General: No swelling. Normal range of motion. Right lower leg: No edema. Left lower leg: No edema. Neurological: Mental Status: She is alert and oriented to person, place, and time. Skin: General: Skin is warm and dry. Psychiatric: Mood and Affect: Mood normal. Behavior: Behavior normal. Vitals and nursing note reviewed. Exam conducted with a draftsperson present. Vitals: Estimated body mass index is 34.11 kg/m as calculated from the following: Height as of 2/13/23: 5' 5 . Weight as of this encounter: 205 lb. BP: 120/72 Patient's last menstrual period was 10/12/2024. ASSESSMENT & PLAN ICD-10-CM 1. Urinary tract infection without hematuria, site unspecified N39.0 2. 13 weeks gestation of ([facility]) Z3A.13 POCT urinalysis dipstick manually resulted 3. Second trimester ([facility]) Z34.92 POCT urinalysis dipstick manually resulted 4. Nausea R11.0 Return OB: Patient presents today for a routine obstetrics appointment. Patient is currently 13w1d . Patient states she is doing well but has complaints of being tired due to current . Patient has verbalizes frequent movement. labor precautions was discussed/given and patient was instructed to perform kick counts three times a day. Orders Placed This Encounter Procedures POCT urinalysis dipstick manually resulted Follow Up: Patient is to return to office in 4 week for routine OB appointment. Patient with complaints of nausea and some dizziness and intermittent increased heart rate. Patient is going to increase fluid intake and replace electrolytes as discussed. Ecoli noted on urine culture and will send in Macrobid 100mg BID and Zofran. Patient will call the office if symptoms do not resolve or increased heart rate is more frequent will discuss EKG and Echo if needed. No complaints of CP or SOB. Documented by Le Thompson NP on behalf of: Mana Jang DO documented in this encounter [facility] 12-11-2024 History of Presen t illness Narrative Reason for Appointment: Patient ID: Madelyn Lopez is a 29 y.o. female who presents for Amenorrhea Patient presents today for a Nurse OB Intake appointment. Patient is 8w4d with a Estimated Date of Delivery: 07/19/25 OB History Para Term AB Living 1 SAB IAB Ectopic Multiple Live Births # Outcome Date GA Lbr Asa/2nd Weight Sex Type Anes PTL Lv 1 Current Obstetric Comments Last pap smear 05/16/2021 neg Current Medications: has a current medication list which includes the following prescription(s): mv-min-fe fum-fa-dha. Medical History: Active Ambulatory Problems Diagnosis Date Noted No Active Ambulatory Problems Resolved Ambulatory Problems Diagnosis Date Noted No Resolved Ambulatory Problems Past Medical History: Diagnosis Date BCP ( control pills) initiation Encounter for well woman exam Obesity (BMI 30-39.9) Vaginal discharge No family history on file. Social History Tobacco Use Smoking status: Never Smokeless tobacco: Never Substance Use Topics Alcohol use: Yes Comment: Occasional Drug use: Never History reviewed. No pertinent surgical history. Allergies Allergen Reactions Penicillin G Anaphylaxis Vitals: Estimated body mass index is 34.11 kg/m as calculated from the following: Height as of 08/21/22: 5' 5 . Weight as of this encounter: 205 lb. BP: Patient's last menstrual period was 10/12/2024. Assessment/Plan Diagnoses and all orders for this visit: Missed menses - Type and screen; Future - ABO/Rh; Future - CBC and differential - Hemoglobin A1c - RPR - Rubella antibody, IgG - Hepatitis B surface antigen - Hepatitis C antibody - HIV-1 and HIV-2 antibodies - Urine culture - POCT , urine manually resulted - POCT urinalysis dipstick manually resulted , unspecified gestational age - Type and screen; Future - ABO/Rh; Future - CBC and differential - Hemoglobin A1c - RPR - Rubella antibody, IgG - Hepatitis B surface antigen - Hepatitis C antibody - HIV-1 and HIV-2 antibodies - Rapid drug screen, urine; Future Encounter for supervision of normal first in first trimester - Rapid drug screen, urine; Future Nurse Note: OB Intake: OB Intake: Patient presents today for first OB visit. Patients history has been reviewed in great detail including any potential risks. Patient signed consent forms and patient desires testing in both trimesters. Patient currently has no complaints and has been advised to drink 6-8 glasses of water a day, eat no raw or undercooked meat, and stay away from [facility]. Patient has also been advised to not change litter boxes and eat 6 small meals a day. Patient has been consulted regarding the do's and don'ts of . Patient was given labs and all questions and concerns were answered. Follow Up: Patient is to return in 4 weeks for routine OB appointment. Follow Up: Patient is to return in 4 weeks for routine OB appointment. Follow Up: Patient is to have labs drawn at directed and return to office for initial OB appointment with provider. Patient may call office as needed with any concerns or questions. Nurse Visit Completed by: Kenia Carter LPN documented in this encounter [facility] 09-01-2024 History of Presen t illness Narrative Reason for Appointment: Patient ID: Madelyn Lopez is a 28 y.o. female who presents for Well Women Visit Patient presents today for Annual Exam. MEDICATIONS No current outpatient medications ALLERGIES Allergies Allergen Reactions Penicillin G Anaphylaxis PROBLEMS Active Ambulatory Problems Diagnosis Date Noted No Active Ambulatory Problems Resolved Ambulatory Problems Diagnosis Date Noted No Resolved Ambulatory Problems Past Medical History: Diagnosis Date BCP ( control pills) initiation Encounter for well woman exam Obesity (BMI 30-39.9) Vaginal discharge HISTORY PAST MEDICAL HISTORY SOCIAL HISTORY Past Medical History: Diagnosis Date BCP ( control pills) initiation Encounter for well woman exam Obesity (BMI 30-39.9) Vaginal discharge Social History Tobacco Use Smoking status: Never Smokeless tobacco: Never Substance Use Topics Alcohol use: Yes Comment: Occasional Drug use: Never FAMILY HISTORY No family history on file. SURGICAL HISTORY History reviewed. No pertinent surgical history. REVIEW OF SYSTEMS Review of Systems: Review of Systems All other systems reviewed and are negative. OBJECTIVE Objective: Physical Exam Constitutional: Appearance: Normal appearance. She is well-developed. Genitourinary: Vulva normal. Breasts: Breasts are soft. Right: Normal. Left: Normal. Cardiovascular: Rate and Rhythm: Normal rate and regular rhythm. Pulmonary: Effort: Pulmonary effort is normal. Breath sounds: Normal breath sounds. Abdominal: General: Bowel sounds are normal. There is no distension. Palpations: Abdomen is soft. Tenderness: There is no abdominal tenderness. There is no guarding or rebound. Musculoskeletal: General: No swelling. Normal range of motion. Right lower leg: No edema. Left lower leg: No edema. Neurological: Mental Status: She is alert and oriented to person, place, and time. Skin: General: Skin is warm and dry. Psychiatric: Mood and Affect: Mood normal. Behavior: Behavior normal. Vitals and nursing note reviewed. Exam conducted with a draftsperson present. Vitals: Estimated body mass index is 35.41 kg/m as calculated from the following: Height as of 08/21/22: 5' 5 . Weight as of this encounter: 212 lb 12.8 oz. BP: 116/74 No LMP recorded. ASSESSMENT & PLAN ICD-10-CM 1. Well woman exam with routine gynecological exam Z01.419 Pap Smear Annual Exam: Patient presents today for an annual exam. Patient states she is doing well and has no complaints. Pap was obtained without difficulty. Follow Up: Patient is to return in one year for annual unless needed otherwise. Documented by Angelina Plunkett LPN on behalf of: Mana Jang DO documented in this encounter [facility] Healthcare Evaluation note Diagnosis Well woman exam with routine gynecological exam Routine gynecological examination [facility] Diagnosis Missed menses , unspecified gestational age Encounter for supervision of normal first in first trimester documented [facility]* Diagnosis Urinary tract infection without hematuria, site unspecified- Primary 13 weeks gestation of ([facility]) Second trimester ([facility]) state, incidental Nausea Nausea alone [facility] Diagnosis 17 weeks gestation of ([facility]) Second trimester ([facility]) state, incidental Screening, , for anatomic survey ([facility]) Encounter for anatomic survey Exposure to STD Vaginal discharge Leukorrhea, not specified as infective [facility]* Diagnosis Second trimester ([facility]) state, incidental 21 weeks gestation of ([facility]) [facility]* Diagnosis 25 weeks gestation of ([facility]) Second trimester ([facility]) state, incidental Diabetes mellitus screening Screening for diabetes mellitus documented in this encounter [facility] Summary Purpose Family History No Family History Records FoundNo Family History Records FoundNo Family History Records Found Advance Directives No Advanced Directives Records FoundNo Advanced Directives Records FoundNo Advanced Directives Records Found Additional Source Comments INFORMATION SOURCE (unrecogn ized section and content) DATE CREATED AUTHOR [facility]/05/2018 [facility] DATE CREATED AUTHOR AUTHOR'S ORGANIZ ATION 08/29/2022 Crissy Bl[place] [facility] DATE CREATED AUTHOR AUTHOR'S ORGANIZ ATION 03/12/2025 [facility] Special[facility] Care Teams (unrecognized sec tion and content) Food Service Relationship Specialty Start Date End Date Taylor Roberto, VEGETABLE I FARMWORKER [address] [facility] [address] [place] [address] PCP - Alfredo Commercial 03/09/24 Food Service Relationship Specialty Start Date End Date Taylor Roberto VEGETABLE I FARMWORKER [address] [facility] [address] [place] [address] PCP - Alfredo Commercial 03/09/24 Reason for Visit (unrecogniz ed section and content) Reason Comments Well Women Visit Reason Comments Amenorrhea Reason Comments Routine Visit FOR RECORDS PERTAINING TO PATIENTS WHO ARE [...] BE BASED ON THE PRIMARY CLINICAL RECORDS. [facility] [employer] [facility]. provides no warranty or guarantee of the accuracy or completeness of information in this document.
[2025-04-13 09:45] LABS: Hematocrit 34.0 % (36.0-48.0); Hemoglobin 11.6 g/dL (12.0-16.0); Immature Granulocytes Abs Auto 0.07 10^3/uL (0.00-0.03); Immature Granulocytes Pct Auto 0.8 % (0.0-0.5); Lymphocytes Absolute Auto 1.6 10^3/uL (1.2-3.8); Mean Corpuscular HGB Conc 34.1 g/dL (29.9-35.2); Mean Corpuscular Hemoglobin 30.3 pg (26.7-34.0); Mean Corpuscular Volume 88.8 fL (81.0-99.0); Platelet Count 304 10^3/uL (150-450); Red Blood Count 3.83 10^6/uL (4.20-5.40); White Blood Count 8.5 10^3/uL (4.0-11.0)
[2025-04-13 10:18] LABS: Glucose 1 Hour 120 mg/dL (<130)
== END 2025-04-13 08:29 | disposition home or self-care (01) ==
LOC: LAB 08:30
PROVIDERS: Visit Provider Nurse Practitioner Family
DX: Z13.1 Encounter for screening for diabetes mellitus (principal)
CPT/HCPCS: 36415; 82950; 85025

== ENCOUNTER 2025-06-22 20:11 | Outpatient (REF) | payer BC, SELFPAY ==
--- OUTSIDE RECORDS SUMMARY | 2025-06-15 14:10 | XMS_ITS | Encounter Summary ---
Author Organization [facility] Address [address] [place] [address] Care Team Providers Care Digital Program Manager Name Role Phone Unavailable Primary Care Provider Unavailabl e Reason for Visit * ReasonCommentsRoutine Visit Encounter Details DateTypeDepartmentCare Team (Latest Contact Info)Tafaphjevsa07/08/2025 2:10 PM ESTRoutine [facility] [address] [place] [address] Guero Jang DO [address] [place] [address] Third trimester ([facility]); 35 weeks gestation of ([facility]); SGA (small for gestational age) ([facility]) Social History Tobacco UseTypesPacks/DayYears UsedDateSmoking Tobacco: NeverSmokeless Tobacco: NeverAlcohol UseStandard Drinks/WeekCommentsYes0 (1 standard drink = 0.6 oz pure alcohol)OccasionalEstimated Date of IsuiocsyAvciqfneVfm25/11/2026ased on last menstrual period of 10/12/2024Sex and Gender InformationValueDate Recorded Sex Assigned at BirthNot on fileLegal ZfzPpkrrs83/15/2023 11:19 PM EDTGender IdentityNot on fileSexual OrientationNot on filedocumented as of this encounter Last Filed Vital Signs Vital SignReadingTime TakenCommentsBlood Kudcfbgt309/7206/15/2025 2:44 PM EST Pulse--Temperature--Respiratory Rate--Oxygen Saturation--Inhaled Oxygen Concentration--Jpyrfl061 kg (242 lb 8 oz)06/15/2025 2:44 PM ESTHeight--Body Mass Index40.35008/21/2022 12:00 PM ESTdocumented in this encounter Progress Notes * Le Thompson NP - 06/15/2025 2:10 PM EST Reason for Appointment: Patient ID: Madleyn Lopez is a 29 y.o. female who [...] nursing note reviewed. Exam conducted with a shaper setter present. Vitals: Estimated body mass index is 40.35 kg/m?? as calculated from the following: Height as of 08/21/22: 5' 5 . Weight as of this encounter: 242 lb 8 oz. BP: 122/72 Patient's last menstrual period was 10/12/2024. Assessment/Plan ICD-10-CM 1. Third trimester ([facility]) Z34.93 POCT urinalysis dipstick manually resulted 2. 35 weeks gestation of ([facility]) Z3A.35 Assessment/Plan Return OB: Patient presents today [...] Plan of Treatment DateTypeDepartmentCare Team (Latest Contact Info)Volnqirzswa11/22/2025 3:30 PM ESTRoutine [facility] [address] [place] [phone] Kemi Chaney PA [address] [place] [address] 09/07/2025 9:00 AM ESTOffice Visit [facility] [address] [place] [address] Guero Jang DO [address] [place] [address] NameTypePriorityAssociated DiagnosesDate/TimeUS OB follow up transabdominal approachImagingRoutine Third trimester ([facility]) SGA (small for gestational age) ([facility]) 06/22/2025 1:29 PM ESTNameTypePriorityAssociated DiagnosesOrder ScheduleUS OB follow up transabdominal approachImagingRoutine Third trimester ([facility]) SGA (small for gestational age) ([facility]) Expected: 06/22/2025, Expires: 10/21/2025documented as of this encounter Procedures Procedure NamePriorityDate/TimeAssociated DiagnosisCommentsPOCT URINALYSIS IXGNVRSTCtnxthd20/08/2025 2:53 PM EST Third trimester ([facility]) documented in this encounter Results * (ABNORMAL) POCT urinalysis dipstick manually resulted [...] Location / LateralityCollection Method / VolumeCollection TimeReceived UukuSbpfn30/08/2025 2:53 PM EST Narrative Authorizing ProviderResult TypeResult StatusCorey Suhail DOPOINT OF CARE TEST ENTER/EDIT ORDERABLESFinal Result documented in this encounter Visit Diagnoses Diagnosis Third trimester ([facility]) state, incidental 35 weeks gestation of ([facility]) SGA (small for gestational age) ([facility]) Odldb-jow-rffyd without mention of malnutrition, unspecified (weight) documented in this encounter
--- OUTSIDE RECORDS SUMMARY | 2025-06-22 13:00 | XMS_ITS | Encounter Summary ---
Author Organization [facility] Address [address] [place] [address] Care Team Providers Care Gauge Operator Name Role Phone Unavailable Primary Care Provider Unavailabl e Encounter Details DateTypeDepartmentCare Team (Latest Contact Info)Kcztffmyyjc05/15/2025 1:00 PM ESTAncillary Procedure [facility] [address] [place] [address] [place] [address] Third trimester ([facility]); SGA (small for gestational age) ([facility]) Social History Tobacco UseTypesPacks/DayYears UsedDateSmoking Tobacco: NeverSmokeless Tobacco: NeverAlcohol UseStandard Drinks/WeekCommentsYes0 (1 standard drink = 0.6 oz pure alcohol)OccasionalEstimated Date of IdoutnqmUcxcocqvNvo03/11/2026Based on last menstrual period of 10/12/2024Sex and Gender InformationValueDate Recorded Sex Assigned at BirthNot on fileLegal SbbZjgsdj67/15/2023 11:19 PM EDTGender IdentityNot on fileSexual OrientationNot on filedocumented as of this encounter Plan of Treatment DateTypeDepartmentCare Team (Latest Contact Info)Ppboolmksgh96/22/2025 3:30 PM ESTRoutine [facility] [address] [place] [address] Kemi Chaney PA [address] [place], [place] [id number] 09/07/2025 9:00 AM ESTOffice Visit [facility] [address] [place] [address] Guero Jang, [address] [place] [address] NameTypePriorityAssociated DiagnosesDate/TimeUS OB follow up transabdominal approachImagingRoutine Third trimester ([facility]) SGA (small for gestational age) ([facility]) 06/22/2025 1:29 PM ESTdocumented as of this encounter Visit Diagnoses Diagnosis Third trimester ([facility]) state, incidental SGA (small for gestational age) ([facility]) Mzgui-cxh-gxgth without mention of malnutrition, unspecified (weight) documented in this encounter
--- OUTSIDE RECORDS SUMMARY | 2025-06-22 13:40 | XMS_ITS | Encounter Summary ---
Author Organization [facility] Address [address] [place] [address] Care Team Providers Care Slasher Hand Name Role Phone Unavailable Primary Care Provider Unavailabl e Reason for Visit * ReasonCommentsRoutine Visit Encounter Details DateTypeDepartmentCare Team (Latest Contact Info)Nigwntnzxad81/15/2025 1:40 PM ESTRoutine [facility] [address] [facility] [phone] Kemi Chaney PA [address] [facility] [place] [address] Third trimester ([facility]); 36 weeks gestation of ([facility]) Social History Tobacco UseTypesPacks/DayYears UsedDateSmoking Tobacco: NeverSmokeless Tobacco: NeverAlcohol UseStandard Drinks/WeekCommentsYes0 (1 standard drink = 0.6 oz pure alcohol)OccasionalEstimated Date of GoupaivkMplphhcvNet74/11/2026Based on last menstrual period of 10/12/2024Sex and Gender InformationValueDate Recorded Sex Assigned at BirthNot on fileLegal TsgVeozqr24/15/2023 11:19 PM EDTGender IdentityNot on fileSexual OrientationNot on filedocumented as of this encounter Last Filed Vital Signs Vital SignReadingTime TakenCommentsBlood Wpvncbjp301/8406/22/2025 1:52 PM EST Pulse--Temperature--Respiratory Rate--Oxygen Saturation--Inhaled Oxygen Concentration--Omqwkk314 kg (240 lb 4 oz)06/22/2025 1:52 PM ESTHeight--Body Mass Index39.98008/21/2022 12:00 PM ESTdocumented in this encounter Progress Notes * TAN Edward - 06/22/2025 1:40 PM EST Reason for Appointment: Patient ID: [...] nursing note reviewed. Exam conducted with a civil rights attorney present. Vitals: Estimated body mass index is 40.35 kg/m?? as calculated from the following: Height as of 2/13/23: 5' 5 . Weight as of 06/15/25: 242 lb 8 oz. BP: Patient's last menstrual period was 10/12/2024. Assessment/Plan ICD-10-CM 1. Third trimester ([facility]) Z34.93 POCT urinalysis dipstick manually resulted CULTURE, GROUP B STREP WITH SUSCEPTIBLITY 2. 36 weeks gestation of ([facility]) Z3A.36 Assessment/Plan Patient is doing well but has complaints of being tired and having maternal discomfort due to . Patient verbalized frequent movement and was instructed to perform kick counts three times per day. labor precautions were given, LARC consent was signed/declined, and GBS was obtained. Cervical check was performed and patient is 0cm dilated. Orders Placed This Encounter Procedures CULTURE, GROUP B STREP WITH SUSCEPTIBLITY POCT urinalysis dipstick manually resulted Follow Up: Patient is to return to office in 1 week for routine OB appointment Documented by Kate Tomas MA on behalf of: TAN Edward documented in this encounter Plan of Treatment DateTypeDepartmentCare Team (Latest Contact Info)Gssqmmpxblt54/22/2025 3:30 PM ESTRoutine [facility] RODRIG[facility] [address] [facility] [phone] Kemi Chaney PA [address] [facility] [address] [place], [place] [phone] 09/07/2025 9:00 AM ESTOffice Visit JACQUELINE RODRIGUEZ [address] [facility] [address] Guero Jang DO [address] [facility] [address] [place] [place], [place] [phone] NameTypePriorityAssociated DiagnosesOrder ScheduleCULTURE, GROUP B STREP WITH SUSCEPTIBLITYLabRoutine Third trimester ([facility]) Expected: 06/22/2025, Expires: 06/22/2026documented as of this encounter Procedures Procedure NamePriorityDate/TimeAssociated DiagnosisCommentsPOCT URINALYSIS ZWWCYCNZGsjqkza55/15/2025 1:55 PM EST Third trimester ([facility]) documented in this encounter Results * POCT urinalysis dipstick manually resulted (06/22/2025 1:55 PM EST)Component ValueRef RangeTest MethodAnalysis TimePerformed AtPathologist SignatureColor, UAYellowClarity, UAClearGlucose, UANegativeNegative - 2000(110) ++++ mg/dL Bilirubin, UANegativeNegative - 4(70) +++ mg/dLKetones, UANegativeNegative - 160(16) ++++ mg/dLSpec Grav, UA1.0251 - 1.03Blood, UANegativeNegative - 50 Dennis/mcLpH, UA6.05 - 9Protein, UANegativeNegative - 2000(20) ++++ mg/dL Urobilinogen, UA0.20.2 - 12 mg/dLLeukocytes, UANegativeNegative - 500+++ Wilman/mcLNitrite, UANegativeNegative - PositiveSpecimen (Source)Anatomical Location / LateralityCollection Method / VolumeCollection TimeReceived Time Urine06/22/2025 1:55 PM EST Narrative Authorizing ProviderResult TypeResult StatusLifePoint Hospitals TEST ENTER/EDIT ORDERABLESFinal Result documented in this encounter Visit Diagnoses Diagnosis Third trimester ([facility]) state, incidental 36 weeks gestation of ([facility]) documented in this encounter
--- OUTSIDE RECORDS SUMMARY | 2025-06-22 20:17 | XMS_ITS | Clinical Summary ---
Author Organization [facility] Address [address] [place] [address] Care Team Providers Care Commercial Escrow Officer Name Role Phone Unavailable Primary Care Provider Unavailabl e Allergies Active AllergyReactionsCriticalityNoted DateCommentsPenicillin GAnaphylaxisHigh 08/22/2023 Medications MedicationSigDispense QuantityRefillsLast FilledStart DateEnd DateStatus MV-Min-Fe Fum-FA-DHA ( 1 PO) Take 1 tablet by mouth DailyActive ondansetron (Zofran) 4 MG tablet Indications:NauseaTake 1 tablet (4 mg) by mouth every 6 (six) hours if needed for nausea or vomiting for up to 30 doses Take 1 tablet by mouth every 6 hours as needed for nausea. 30 tablet 5Active Encounters DateTypeDepartmentCare OnkxWmpkhwqiwoh16/15/2025 1:40 PM ESTRoutine [facility] Franny [facility] [place] [address] Kemi Chaney PA Third trimester ([facility]); 36 weeks gestation of ([facility])06/22/2025 1:00 PM ESTAncillary Procedure [facility] [place] [address] Third trimester ([facility]); SGA (small for gestational age) ([facility])06/15/2025 2:10 PM ESTRoutine [facility] Franny RODRIGUE[facility] [address] [place] [address] Guero Jang DO Third trimester ([facility]); 35 weeks gestation of ([facility]); SGA (small for gestational age) ([facility])5Bamboo flowsheet [facility]anny [facility] [place] [address] Guero Jang DO 06/01/2025 10:50 AM ESTRoutine [facility] [place] [phone] Kemi Chaney PA Third trimester ([facility]); 33 weeks gestation of ([facility])5Bamboo flowsheet [facility] [place] [address] Kemi Chaney PA 05/18/2025 10:40 AM ESTRoutine [facility] [place] [phone] Guero Jang DO Third trimester ([facility]); 31 weeks gestation of ([facility])05/18/2025 10:00 AM ESTAncillary Procedure [facility] Franny RODRIGUEZ [address] [place] [address] [place] [phone] 28 weeks gestation of ([facility]); Size of fetus inconsistent with dates in third trimester ([facility])04/30/2025 8:50 AM EDTRoutine [facility] Franny RODRIGUEZ [address] [place] [address] [place] [phone] Kemi Chaney PA 28 weeks gestation of ([facility]); Third trimester ([facility]); Size of fetus inconsistent with dates in third trimester ([facility])04/30/2025 Bamboo flowsheet [facility] Franny RODRIGUEZ [address] [place] [address] [place] [phone] Kemi Chaney PA 04/13/2025linisync Result Encounter NOMS External Department Unsolicited Le Thompson NP 04/09/2025 9:00 AM EDTRoutine NOM[facility] Franny RODRIGUEZ [address] [facility] [place] [phone] Le Thompson NP 25 weeks gestation of ([facility]); Second trimester ([facility]); Diabetes mellitus ptmvarhev25/02/2025amboo flowsheet [facility] Franny RODRIGUE[facility] [address] [facility] [place] [address] Le Thompson NP 04/08/2025Travelfrom Last 3 Months Social History Tobacco UseTypesPacks/DayYears UsedDateSmoking Tobacco: NeverSmokeless Tobacco: Never Tobacco Cessation:Counseling Given: Not Answered Alcohol UseStandard Drinks/WeekCommentsYes0 (1 standard drink = 0.6 oz pure alcohol)OccasionalEstimated Date of SlfonznoLbgkqjzxZwm58/11/2026ased on last menstrual period of 10/12/2024Sex and Gender InformationValueDate Recorded Sex Assigned at BirthNot on fileLegal AwqRciosd66/15/2023 11:19 PM EDTGender IdentityNot on fileSexual OrientationNot on file Last Filed Vital Signs Vital SignReadingTime TakenCommentsBlood Hqremdzg882/8406/22/2025 1:52 PM EST Rbfer493001/01/2024 7:02 PM TFXQjwoybmhpmn04.7 ??C (98 ??F)01/01/2024 7:02 PM EDT Respiratory Rate--Oxygen Yahcbtauhq18%01/01/2024 7:02 PM EDTInhaled Oxygen Concentration--Ntetit300 kg (240 lb 4 oz)06/22/2025 1:52 PM IIUGwlcys065.1 cm (5' 5 )08/21/2022 12:00 PM ESTBody Mass Index39.98008/21/2022 12:00 PM EST Plan of Treatment DateTypeDepartmentCare Team (Latest Contact Info)Zogypftkvoc41/22/2025 3:30 PM ESTRoutine [facility] Franny RODRIGUEZ [address] [facility] [place] [phone] Kemi Chaney PA [address] [facility] [place] [address] 09/07/2025 9:00 AM ESTOffice Visit [facility] [address] [facility] [place] [phone] Guero Jang, DO [address] [facility] [address] [place] [place], [place] [phone] Procedures Procedure NamePriorityDate/TimeAssociated DiagnosisCommentsPOCT URINALYSIS PLDRZYTDChnvxvk10/15/2025 1:55 PM EST Third trimester ([facility]) POCT URINALYSIS PHKPOSAYDfldsyl41/08/2025 2:53 PM EST Third trimester ([facility]) POCT URINALYSIS BFUGSVUGUhminpe14/24/2025 10:58 AM EST 33 weeks gestation of ([facility]) POCT URINALYSIS AJFELEHVUcvkadj94/10/2025 10:41 AM EST 31 weeks gestation of ([facility]) US OB FOLLOW UP TRANSABDOMINAL LUMSKSTYAfosopn89/10/2025 10:19 AM EST 28 weeks gestation of ([facility]) Size of fetus inconsistent with dates in third trimester ([facility]) POCT URINALYSIS DSAUEHHOXaagruk97/23/2025 9:07 AM EDT 28 weeks gestation of ([facility]) Third trimester ([facility]) GLUCOSE 1 COQUIabjyvs30/06/2025 9:36 AM EDT ALL CBC WITH AUTO UUXKXwcxjzv02/06/2025 9:36 AM EDT POCT URINALYSIS NYTFVHYHAoasnkh72/02/2025 9:01 AM EDT 25 weeks gestation of ([facility]) Second trimester ([facility]) from Last 3 Months Results * POCT urinalysis dipstick manually resulted (06/22/2025 1:55 PM EST) Only the most recent of6 resultswithin the time period is included. ComponentValueRef RangeTest MethodAnalysis TimePerformed AtPathologist Signature Color, UAYellowClarity, UAClearGlucose, UANegativeNegative - 2000(110) ++++ mg/dLBilirubin, UANegativeNegative - 4(70) +++ mg/dLKetones, UANegativeNegative - 160(16) ++++ mg/dLSpec Grav, UA1.0251 - 1.03Blood, UANegativeNegative - 50 Dennis/mcLpH, UA6.05 - 9Protein, UANegativeNegative - 2000(20) ++++ mg/dL Urobilinogen, UA0.20.2 - 12 mg/dLLeukocytes, UANegativeNegative - 500+++ Wilman/mcL Nitrite, UANegativeNegative - PositiveSpecimen (Source)Anatomical Location / LateralityCollection Method / VolumeCollection TimeReceived UzkcDnmlx17/15/2025 1:55 PM EST Narrative Authorizing ProviderResult TypeResult StatusAmy [facility] TEST ENTER/EDIT ORDERABLESFinal Result * US OB follow up transabdominal approach (05/18/2025 10:19 AM EST)Anatomical RegionLateralityModalityBodyUltrasoundSpecimen (Source)Anatomical Location / LateralityCollection Method / VolumeCollection TimeReceived Time05/20/2025 8:26 AM EST Impressions 05/20/2025 9:05 AM EST Single, live intrauterine , current sonographic age of 31 weeks and 6 days, with an estimated date of delivery of July 14, 2025 . * ??Estimated Weight (g) by Percentile is based upon an accurate estimated age based onlast menstrual period. ?? TRANSCRIBED BY: ? ELECTRONICALLY SIGNED BY: Dino Gama MD Narrative 05/20/2025 9:05 AM EST FINDINGS: A single, live intrauterine is present with normal cardiac rate of135 beats per minute. Normal activity and amniotic fluid volume. Amniotic fluid index is 12 ??cm. ??Morphology is grossly normal. ??The current sonographic age is ??31 weeks and 6 days, based on the following measurements: ?BPD ? 8.1cm (32 weeks,3 ??days) ?Head Circumference ? 28.8cm (31 weeks,5 ??days) ?Abdominal Circumference ? 27.8cm (31 ??weeks, 6 days) ?Femur Length ?6.0cm (31 weeks, 2 days) ?Presentation ? Cephalic ? Weight (g) by Percentile ?57.4% * These measurements result in an estimated date of delivery of ??July 14, 2025. ?The current estimated weight is ??1822 ??grams (4 ??pound, ??0 ounces). ?? Comparison made with ??prior examination of March 11, 2025 and delivery at that time was 2025 and weight by percentile was 56.8% Procedure Note Dino Gama MD - 05/20/2025 FINDINGS: A single, live intrauterine is present with normal cardiacrate of135 beats per minute. Normal activity and amniotic fluidvolume. Amniotic fluid index is 12 cm. Morphology is grossly normal.The current sonographic age is 31 weeks and 6 days, based on thefollowing measurements: BPD 8.1cm (32 weeks,3 days) Head Circumference 28.8cm (31 weeks,5 days) Abdominal Circumference 27.8cm (31 weeks, 6 days) Femur Length 6.0cm (31 weeks, 2 days) Presentation Cephalic Weight (g) by Percentile 57.4% * These measurements result in an estimated date of delivery of July. The current estimated weight is 1822 grams (4 pound, 0ounces). Comparison made with prior examination of March 11, 2025 and deliveryat that time was July 18, 2025 and weight by percentile was56.8% IMPRESSION: Single, live intrauterine , current sonographic age of 31 weeksand 6 days, with an estimated date of delivery of July 14, 2025 . * Estimated Weight (g) by Percentile is based upon an accurateestimated age based on last menstrual period. TRANSCRIBED BY: ELECTRONICALLY SIGNED BY: Dino Gama MD Authorizing ProviderResult TypeResult StatusKemi FLORES OB US PROCEDURES Final Result * GLUCOSE 1 HOUR (04/13/2025 9:36 AM EDT)ComponentValueRef RangeTest Method Analysis TimePerformed AtPathologist SignatureGLUCOSE 1 SDBC384<130 mg/dLTBH Specimen (Source)Anatomical Location / LateralityCollection Method / Volume Collection TimeReceived Time04/13/2025 9:36 AM EDT1 9:37 AM EDT Narrative [facility] - 04/13/2025 10:24 AM EDT Authorizing ProviderResult TypeResult StatusLe Thompson NPLAB BLOOD ORDERABLESFinal ResultPerforming OrganizationAddressCity/State/ZIP CodePhone Number [facility] * (ABNORMAL) ALL CBC WITH AUTO DIFF (04/13/2025 9:36 AM EDT)ComponentValueRef RangeTest MethodAnalysis TimePerformed AtPathologist SignatureTBH WBC8.54.0 - 11.0 10 3/uLTBHTBH RBC3.83(L)4.20 - 5.40 10 6/uLTBHTBH HGB11.6(L)12.0 - 16.0 g/dLTBHTBH HCT34.0(L)36.0 - 48.0 %TBHTBH MCV88.881.0 - 99.0 fLTBHTBH MCH30.3 26.7 - 34.0 pgTBHTBH MCHC34.129.9 - 35.2 g/dLTBHTBH RDW13.811.0 - 15.0 %TBHTBH XPT628512 - 450 10 3/uLTBHTBH MPV9.89.5 - 13.5 fLTBHNEUTROPHILS PERCENT AUTO 73.043.0 - 75.0 %TBHLYMPHOCYTES PERCENT AUTO18.6(L)20.5 - 60.0 %TBHMONOCYTES PERCENT AUTO5.71.7 - 12.0 %TBHTBH EO %1.40.9 - 7.0 %TBHBASOPHILS PERCENT AUTO 0.50.2 - 2.0 %TBHIMMATURE GRANULOCYTES PCT AUTO0.8(H)0.0 - 0.5 %TBHNEUTROPHILS ABSOLUTE AUTO6.21.4 - 6.5 10 3/uLTBHLYMPHOCYTES ABSOLUTE AUTO1.61.2 - 3.8 10 3/uLTBHMONOCYTES ABSOLUTE AUTO0.50.3 - 0.8 10 3/uLTBHTBH EO #0.10.0 - 0.7 10 3/uLTBHBASOPHILS ABSOLUTE AUTO0.00.0 - 0.1 10 3/uLTBHIMMATURE GRANULOCYTES ABS AUTO0.07(H)0.00 - 0.03 10 3/uLTBHSpecimen (Source)Anatomical Location / LateralityCollection Method / VolumeCollection TimeReceived Time04/13/2025 9:36 AM EDT1 9:37 AM EDT Narrative [facility] - 04/13/2025 9:48 AM EDT Authorizing ProviderResult TypeResult StatusKristina Jay NPCLINISYNCFinal ResultPerforming OrganizationAddressCity/State/ZIP CodePhone Number [facility] from Last 3 Months Insurance
--- OUTSIDE RECORDS SUMMARY | 2025-06-22 20:17 | XMS_ITS | Encounter Summary ---
Author Organization [facility] Address [address] [place] [address] Care Team Providers Care Academic Support Center Director Name Role Phone Unavailable Primary Care Provider Unavailabl e Encounter Details DateTypeDepartmentCare Team (Latest Contact Info)Wvoxbgafzsu42/08/2025amboo flowsheet NOMVi RODRIGUEZ [address] [facility] [address] Guero Jang DO [address] [facility] [address] [place], [facility] Social History Tobacco UseTypesPacks/DayYears UsedDateSmoking Tobacco: NeverSmokeless Tobacco: NeverAlcohol UseStandard Drinks/WeekCommentsYes0 (1 standard drink = 0.6 oz pure alcohol)OccasionalEstimated Date of KgifhqkiCcfalubhMnl07/11/2026Based on last menstrual period of 10/12/2024Sex and Gender InformationValueDate Recorded Sex Assigned at BirthNot on fileLegal FupYohyle19/15/2023 11:19 PM EDTGender IdentityNot on fileSexual OrientationNot on filedocumented as of this encounter Plan of Treatment DateTypeDepartmentCare Team (Latest Contact Info)Cdqnafrafik75/22/2025 3:30 PM ESTRoutine [facility] Franny RODRIGUEZ [address] [facility] [address] Kemi Chaney PA [address] [facility] [place] [address] 09/07/2025 9:00 AM ESTOffice Visit NOM[facility] Franny RODRIGUEZ [address] [facility] [address] Guero Jang DO [address] [place] [address] [place] [address] documented as of this encounter Visit Diagnoses Not on filedocumented in this encounter
== END 2025-06-22 20:12 | disposition home or self-care (01) ==
LOC: LAB 20:11
PROVIDERS: Visit Provider Physician Assistant
DX: Z34.93 Encounter for supervision of normal pregnancy, unspecified, third trimester (principal)
CPT/HCPCS: 87081

== ENCOUNTER 2025-07-05 18:11 | Outpatient (OUT) | payer BC, SELFPAY ==
--- OUTSIDE RECORDS SUMMARY | 2025-06-15 14:10 | XMS_ITS | Encounter Summary ---
Author Organization [facility] Address [address] [place] [address] Care Team Providers Care Web Services Architect Name Role Phone Unavailable Primary Care Provider Unavailabl e Reason for Visit * ReasonCommentsRoutine Visit Encounter Details DateTypeDepartmentCare Team (Latest Contact Info)Ofgkcqeocjm29/08/2025 2:10 PM ESTRoutine [facility] [address] [place] [address] Guero Jang DO [address] [place] [address] Third trimester ([facility]); 35 weeks gestation of ([facility]); SGA (small for gestational age) ([facility]) Social History Tobacco UseTypesPacks/DayYears UsedDateSmoking Tobacco: NeverSmokeless Tobacco: NeverAlcohol UseStandard Drinks/WeekCommentsYes0 (1 standard drink = 0.6 oz pure alcohol)OccasionalEstimated Date of GpyiytjaAmahjhtqOws04/11/2026ased on last menstrual period of 10/12/2024Sex and Gender InformationValueDate Recorded Sex Assigned at BirthNot on fileLegal KhuAmjgbd63/15/2023 11:19 PM EDTGender IdentityNot on fileSexual OrientationNot on filedocumented as of this encounter Last Filed Vital Signs Vital SignReadingTime TakenCommentsBlood Cwapeubv885/7206/15/2025 2:44 PM EST Pulse--Temperature--Respiratory Rate--Oxygen Saturation--Inhaled Oxygen Concentration--Dvufaj468 kg (242 lb 8 oz)06/15/2025 2:44 PM ESTHeight--Body Mass Index40.35008/21/2022 12:00 PM ESTdocumented in this encounter Progress Notes * Le Thompson NP - 06/15/2025 2:10 PM EST Reason for Appointment: Patient ID: Madelyn Lopez [...] nursing note reviewed. Exam conducted with a airplane dispatch clerk present. Vitals: Estimated body mass index is 40.35 kg/m?? as calculated from the following: Height as of 08/21/22: 5' 5 . Weight as of this encounter: 242 lb 8 oz. BP: 122/72 Patient's last menstrual period was 10/12/2024. Assessment/Plan ICD-10-CM 1. Third trimester ([facility]) Z34.93 POCT urinalysis dipstick manually resulted 2. 35 weeks gestation of ([facility]) Z3A.35 Assessment/Plan Return OB: Patient presents today for a routine obstetrics appointment. Patient is currently 35w1d . Patient states she is doing well but has complaints of being tired due to current . Patient has verbalizes frequent movement. labor precautions was discussed/given and patient was instructed to perform kick counts three times a day. Orders Placed This Encounter Procedures POCT urinalysis dipstick manually resulted Follow Up: Patient is to return to office in 1 week for routine OB appointment. Documented by Le Thompson NP on behalf of: Guero Jang DO documented in this encounter Miscellaneous Notes * Addendum Note - Angelina Santillan LPN - 06/15/2025 2:10 PM ESTAddended by: ANGELINA SANTILLAN on: 06/22/2025 09:09 AM Modules accepted: Orders documented in this encounter Plan of Treatment DateTypeDepartmentCare Team (Latest Contact Info)Afhqgaavqal74/29/2025 3:20 PM ESTRoutine [facility] [address] [place] [address] Kemi Chaney PA [address] [place] [address] 09/07/2025 9:00 AM ESTOffice Visit [facility] [address] [place] [address] Guero Jang DO [address] [place] [address] documented as of this encounter Procedures Procedure NamePriorityDate/TimeAssociated DiagnosisCommentsPOCT URINALYSIS ENQBTNLXAvkrzwj13/08/2025 2:53 PM EST Third trimester ([facility]) documented in this encounter Results * US OB follow up transabdominal approach (06/22/2025 1:29 PM EST)Anatomical RegionLateralityModalityBodyUltrasoundSpecimen (Source)Anatomical Location / LateralityCollection Method / VolumeCollection TimeReceived Time06/25/2025 3:14 PM EST Impressions 06/25/2025 3:22 PM EST SINGLE LIVE INTRAUTERINE CORRESPONDING TO APPROXIMATELY 36 WEEKS 6 DAYS WITH EXPECTED DUEDATE OF JULY 14, 2025. NO GROSS ABNORMALITIES IDENTIFIED, WITHIN THE LIMITS OF THE STUDY. ELECTRONICALLY SIGNED BY: Eric Gillis DO Narrative 06/25/2025 3:22 PM EST US OB FOLLOW UP TRANSABDOMINAL APPROACH : 06/22/2025 12:52 PM CLINICAL HISTORY: Growth COMPARISON: May 18, 2025 TECHNIQUE: ROUTINE FINDINGS: Single intrauterine fetus is seen in cephalic presentation with heart motion of 146 bpm and somaticmotion. The amniotic fluid volume appears within normal limits for gestation. It measures 9.4 cm. The following measurements were obtained: BPD 9.16 cm, HC 32.8 cm, AC 32.72 cm, FL 7.07 cm, which corresponds to an aggregate gestational age of 36 weeks 6 days with expected due date of July 14, 2025. Estimated weight is 2999+/-449.85 g. This fetus is in the 66.5 percentile.. Procedure Note Eric Gillis DO - 06/25/2025 US OB FOLLOW UP TRANSABDOMINAL APPROACH : 06/22/2025 12:52 PM CLINICAL HISTORY: Growth COMPARISON: May 18, 2025 TECHNIQUE: ROUTINE FINDINGS: Single intrauterine fetus is seen in cephalic presentation with heartmotion of 146 bpm and somatic motion. The amniotic fluid volume appears within normal limits for gestation. Itmeasures 9.4 cm. The following measurements were obtained: BPD 9.16 cm, HC 32.8 cm, AC32.72 cm, FL 7.07 cm, which corresponds to an aggregate gestational age of36 weeks 6 days with expected due date of July 14, 2025. Estimated weight is 2999+/-449.85 g. This fetus is in the 66.5percentile.. IMPRESSION: SINGLE LIVE INTRAUTERINE CORRESPONDING TO APPROXIMATELY 36 WEEKS6 DAYS WITH EXPECTED DUE DATE OF JULY 14, 2025. NO GROSS ABNORMALITIES IDENTIFIED, WITHIN THE LIMITS OF THE STUDY. ELECTRONICALLY SIGNED BY: Eric Gillis DO Authorizing ProviderResult TypeResult StatusCorey Suhail CHAVEZ OB US PROCEDURES Final Result * (ABNORMAL) POCT urinalysis dipstick manually resulted (06/15/2025 2:53 PM EST) ComponentValueRef RangeTest MethodAnalysis TimePerformed AtPathologist SignatureColor, UAYellowClarity, UAClearGlucose, UANegativeNegative - 2000(110) ++++ mg/dLBilirubin, UANegativeNegative - 4(70) +++ mg/dLKetones, UA NegativeNegative - 160(16) ++++ mg/dLSpec Grav, UA1.0101 - 1.03Blood, UA NegativeNegative - 50 Dennis/mcLpH, UA6.55 - 9Protein, UANegativeNegative - 2000(20) ++++ mg/dLUrobilinogen, UA0.20.2 - 12 mg/dLLeukocytes, UANegative Negative - 500+++ Wilman/mcLNitrite, UANegativeNegative - PositiveSpecimen (Source)Anatomical Location / LateralityCollection Method / VolumeCollection TimeReceived IjjgKyrnn30/08/2025 2:53 PM EST Narrative Authorizing ProviderResult TypeResult StatusGuero Jang DOPOINT OF CARE TEST ENTER/EDIT ORDERABLESFinal Result documented in this encounter Visit Diagnoses Diagnosis Third trimester ([facility]) state, incidental 35 weeks gestation of ([facility]) SGA (small for gestational age) ([facility]) Tecmw-cms-tommp without mention of malnutrition, unspecified (weight) Third trimester ([facility]) state, incidental SGA (small for gestational age) ([facility]) Byzkl-lmk-mknxb without mention of malnutrition, unspecified (weight) documented in this encounter
--- OUTSIDE RECORDS SUMMARY | 2025-06-22 13:00 | XMS_ITS | Encounter Summary ---
Author Organization [facility] Address [address] [place] [address] Care Team Providers Care Field Examiner Name Role Phone Unavailable Primary Care Provider Unavailabl e Encounter Details DateTypeDepartmentCare Team (Latest Contact Info)Muhiqtccaqc44/15/2025 1:00 PM ESTAncillary Procedure [facility] [address] [place] [address] [place] [address] Third trimester ([facility]); SGA (small for gestational age) ([facility]) Social History Tobacco UseTypesPacks/DayYears UsedDateSmoking Tobacco: NeverSmokeless Tobacco: NeverAlcohol UseStandard Drinks/WeekCommentsYes0 (1 standard drink = 0.6 oz pure alcohol)OccasionalEstimated Date of UrkvfbgxVbfojznsAoc03/11/2026Based on last menstrual period of 10/12/2024Sex and Gender InformationValueDate Recorded Sex Assigned at BirthNot on fileLegal EiyLgzlmb48/15/2023 11:19 PM EDTGender IdentityNot on fileSexual OrientationNot on filedocumented as of this encounter Plan of Treatment DateTypeDepartmentCare Team (Latest Contact Info)Wzazgfvbjon29/29/2025 3:20 PM ESTRoutine [facility] [address] [place] [address] Kemi Chaney PA [address] [facility] [address] [place], [place] [id number] 09/07/2025 9:00 AM ESTOffice Visit JACQUELINE [facility] [address] [place] [phone] Guero Jang, DO [address] [place] [address] documented as of this encounter Procedures Procedure NamePriorityDate/TimeAssociated DiagnosisCommentsUS OB FOLLOW UP TRANSABDOMINAL MSEWURPBJzufagm61/15/2025 1:29 PM EST Third trimester ([facility]) SGA (small for gestational age) ([facility]) documented in this encounter Results * US [...] Gillis DO Authorizing ProviderResult TypeResult StatusCorey Suhail BYERS OB US PROCEDURES Final Result documented in this encounter Visit Diagnoses Diagnosis Third trimester ([facility]) state, incidental SGA (small for gestational age) ([facility]) Ptowe-pcm-mvyir without mention of malnutrition, unspecified (weight) documented in this encounter
--- OUTSIDE RECORDS SUMMARY | 2025-06-22 13:40 | XMS_ITS | Encounter Summary ---
Author Organization [facility] Address [address] [place] [address] Care Team Providers Care Operations Manager Name Role Phone Unavailable Primary Care Provider Unavailabl e Reason for Visit * ReasonCommentsRoutine Visit Encounter Details DateTypeDepartmentCare Team (Latest Contact Info)Atyhgcmebeg57/15/2025 1:40 PM ESTRoutine [facility] [address] [facility] [place] [phone] Kemi Chaney PA [address] [place] [address] Third trimester ([facility]); 36 weeks gestation of ([facility]) Social History Tobacco UseTypesPacks/DayYears UsedDateSmoking Tobacco: NeverSmokeless Tobacco: NeverAlcohol UseStandard Drinks/WeekCommentsYes0 (1 standard drink = 0.6 oz pure alcohol)OccasionalEstimated Date of JmmmnaacPhwdujltKis50/11/2026Based on last menstrual period of 10/12/2024Sex and Gender InformationValueDate Recorded Sex Assigned at BirthNot on fileLegal XxbSkluhz06/15/2023 11:19 PM EDTGender IdentityNot on fileSexual OrientationNot on filedocumented as of this encounter Last Filed Vital Signs Vital SignReadingTime TakenCommentsBlood Vrimjwdz849/8406/22/2025 1:52 PM EST Pulse--Temperature--Respiratory Rate--Oxygen Saturation--Inhaled Oxygen Concentration--Wuprtz562 kg (240 lb 4 oz)06/22/2025 1:52 PM [...] nursing note reviewed. Exam conducted with a optical lens manufacturing tech present. Vitals: Estimated body mass index is 40.35 kg/m?? as calculated from the following: Height as of 2/13/23: 5' 5 . Weight as of 06/15/25: 242 lb 8 oz. BP: Patient's last menstrual period was 10/12/2024. Assessment/Plan ICD-10-CM 1. Third trimester ([facility]) Z34.93 POCT urinalysis dipstick manually resulted CULTURE, GROUP B STREP WITH SUSCEPTIBLITY 2. 36 weeks gestation of ([facility]) Z3A.36 Assessment/Plan Patient is doing well but [...] Plan of Treatment DateTypeDepartmentCare Team (Latest Contact Info)Vtjmbrqmyml75/29/2025 3:20 PM ESTRoutine [facility] [address] [facility] [place] [phone] Kemi Chaney PA [address] [facility] [address] [place], [place] [phone] 09/07/2025 9:00 AM ESTOffice Visit JACQUELINE RODRIGUEZ [address] [facility] [place] [address] Guero Jang DO [address] [facility] [address] [place], [place] [id number] NameTypePriorityAssociated DiagnosesOrder ScheduleCULTURE, GROUP B STREP WITH SUSCEPTIBLITYLabRoutine Third trimester ([facility]) Expected: 06/22/2025, Expires: 06/22/2026documented as of this encounter Procedures Procedure NamePriorityDate/TimeAssociated DiagnosisCommentsPOCT URINALYSIS FUZCDDHQGisiaon86/15/2025 1:55 PM EST Third trimester ([facility]) documented [...] 1:55 PM EST Narrative Authorizing ProviderResult TypeResult StatusS[facility] TEST ENTER/EDIT ORDERABLESFinal Result documented in this encounter Visit Diagnoses Diagnosis Third trimester ([facility]) state, incidental 36 weeks gestation of ([facility]) documented in this encounter
--- OUTSIDE RECORDS SUMMARY | 2025-06-29 14:20 | XMS_ITS | Encounter Summary ---
Author Organization [facility] Address [address] [place] [address] Care Team Providers Care Social Services Manager Name Role Phone Unavailable Primary Care Provider Unavailabl e Reason for Visit * ReasonCommentsRoutine Visit Encounter Details DateTypeDepartmentCare Team (Latest Contact Info)Zrmozmjoxuz74/22/2025 2:20 PM ESTRoutine [facility] [address] [place] [phone] Kemi Chaney PA [address] [place] [address] Third trimester ([facility]); 37 weeks gestation of ([facility]) Social History Tobacco UseTypesPacks/DayYears UsedDateSmoking Tobacco: NeverSmokeless Tobacco: NeverAlcohol UseStandard Drinks/WeekCommentsYes0 (1 standard drink = 0.6 oz pure alcohol)OccasionalEstimated Date of FgydawgcUqchohdeSkx23/11/2026Based on last menstrual period of 10/12/2024Sex and Gender InformationValueDate Recorded Sex Assigned at BirthNot on fileLegal BnoNhwwng15/15/2023 11:19 PM EDTGender IdentityNot on fileSexual OrientationNot on filedocumented as of this encounter Last Filed Vital Signs Vital SignReadingTime TakenCommentsBlood Henqejdb019/7606/29/2025 2:20 PM EST Pulse--Temperature--Respiratory Rate--Oxygen Saturation--Inhaled Oxygen Concentration--Rhimzc543 kg (243 lb)06/29/2025 2:20 PM ESTHeight--Body Mass [...] was 10/12/2024. Assessment/Plan ICD-10-CM 1. Third trimester ([facility]) Z34.93 POCT urinalysis dipstick manually resulted 2. 37 weeks gestation of ([facility]) Z3A.37 POCT urinalysis dipstick manually resulted Assessment/Plan [...] Plan of Treatment DateTypeDepartmentCare Team (Latest Contact Info)Vrpofcdidrr93/29/2025 3:20 PM ESTRoutine [facility] [address] [place] [address] [place] [phone] Kemi Chaney PA [address] [place], [place] [phone] 09/07/2025 9:00 AM ESTOffice Visit [facility] [address] [facility] [address] [place] [phone] Guero Jang DO [address] [place], [place] [phone] documented as of this encounter Procedures Procedure NamePriorityDate/TimeAssociated DiagnosisCommentsPOCT URINALYSIS ZNILYDPUFobpmae24/22/2025 2:25 PM EST Third trimester ([facility]) 37 weeks gestation of ([facility]) documented in this encounter Results * POCT [...] 2:25 PM EST Narrative Authorizing ProviderResult TypeResult StatusSent[facility] TEST ENTER/EDIT ORDERABLESFinal Result documented in this encounter Visit Diagnoses Diagnosis Third trimester ([facility]) state, incidental 37 weeks gestation of ([facility]) documented in this encounter
--- OUTSIDE RECORDS SUMMARY | 2025-07-05 18:16 | XMS_ITS | CCD ---
Author Organization [facility] Care Team Providers Care Towel Stretcher Name Role Phone Ashley Mulligan Unavailable Unavailable Ashley Mulligan Unavailable Unavailable KEMI ROGERS~[phone] UNKNOWN Unavailable Un available MISC, DR DODD Primary Care Unavailable SUHAIL ., DR ADAIR Admitting Unavailable SUHAIL ., DR ADAIR Attending Unavailable SUHAIL ., DR ADAIR Consulting Unavailable Taylor Roberto NP Unavailable Unavailable Primary Care Provider UnavailMANA Smart Attending Unavailable MANA JANG Attending Unavailable MANA JANG Attending Unavailable MANA JANG Referring Unavailable KEMI REGAN Attending Unavailable LE THOMPSON Attending Unavailable KEMI REGAN Attending Unavailable MANA JANG Attending Unavailable Allergies Allergy ClassificationReported Allergen(s)Allergy TypeDate of OnsetReaction(s) Facility (1 source)PenicillinDrug AllergyThe [facility] (20 sources)Penicillin GDrug Jtqwuln30-93-7545DzoepycosdkILHQ Healthcare Medications Current Medications MedicationDrug Class(es)DatesSig (Normalized)Sig (Original)magnesium oxide 400 mg oral tablet (4 sources)Start: 02-05-2025 End: 86-69-3398knov 1 tablet by mouth once dailymagnesium oxide (Mag-Ox) 400 MG tablet Indications: Nonintractable headache, unspecified chronicitypattern, unspecified headache type Take 1 tablet (400 mg) by mouth Daily 30 tablet 6 02/05/2025 03/07/2025 Activenitrofurantoin, macrocrystals 25 mg / nitrofurantoin, monohydrate 75 mg oral capsule (2 sources)Nitrofuran AntibacterialStart: 01-12-2025 End: 02-59-1653vxua 1 capsule by mouth in the morningnitrofurantoin, macrocrystal-monohydrate, (Macrobid) 100 MG capsule Indications: Urinary tract infection without hematuria, site unspecified Take 1 capsule (100 mg) by mouth in the morning and 1 capsule (100 mg) before bedtime. Do all this for 7 days. 14 capsule 01/12/2025 01/19/2025 Activeondansetron 4 mg oral tablet (17 sources)Serotonin-3 Receptor AntagonistStart: 53-60-4517uvoe 1 tablet by mouth every six hours as needed for nausea and vomiting and nausea and nausea ondansetron (Zofran) 4 MG tablet Indications: Nausea Take 1 tablet (4 mg) by mouth every 6 (six) hours if needed for nausea or vomiting for up to 30 doses Take 1 tablet by mouth every 6 hours as needed for nausea. 30 tablet 1 01/12/2025 ActivePrenatal MV-Min-Fe Fum-FA-DHA ( 1 PO) (20 sources) MV-Min-Fe Fum-FA-DHA ( 1 PO) Take 1 tablet by mouth Daily Active Problems Problem ClassificationProblemDateDocumented DateEpisodic/ChronicImmunizations and screening for infectious disease (2 sources)Exposure to sexually transmissible disorder; Translations: [Contact with and (suspected) exposure to infections with a predominantly sexual mode of transmission]40-40-7257RexnnblsRjineabdr disorders (1 source)Missed period; Translations: [Irregular menstruation, unspecified] 86-32-9038SsvgqjcYjltwu and vomiting (2 sources)Nausea; Translations: [Nausea]88-78-0539ZidbfdazKpleb complications of (2 sources) size does not accord with dates; Translations: [Uterine size- date discrepancy, third trimester]85-67-2581SczaxnvfYtuxe female genital disorders (2 sources)Vaginal discharge; Translations: [Other specified noninflammatory disorders of vagina]73-53-9770LwnyqtudOpifj and delivery including normal (14 sources); Translations: [Encounter for supervision of normal , unspecified, unspecified trimester]82-86-2846ZxfxrtasFfgec screening for suspected conditions (not mental disorders or infectious disease) (8 sources)Encounter for screening for malignant neoplasm of cervix; Translations: [Patient encounter status]Onset: 74-33-4748GswtghudUglmwmvc codes; unclassified (2 sources)Gestation period, 13 weeks; Translations: [13 weeks gestation of ]88-40-8862WwkowlklTumwadgq codes; unclassified (2 sources)Gestation period, 17 weeks; Translations: [17 weeks gestation of ]05-37-0126LkhibnndJwlipmhe codes; unclassified (2 sources)Gestation period, 21 weeks; Translations: [21 weeks gestation of ]19-36-1273IwscrsurJnregecz codes; unclassified (2 sources)Gestation period, 25 weeks; Translations: [25 weeks gestation of ]85-68-4942HlksgbplBzvoopsd codes; unclassified (2 sources)Gestation period, 28 weeks; Translations: [28 weeks gestation of ]91-12-0921PafleokhXojtcbfx codes; unclassified (2 sources)Gestation period, 31 weeks; Translations: [31 weeks gestation of ]50-87-5340GiqtlqwrYkxhtab tract infections (2 sources)Urinary tract infectious disease; Translations: [Urinary tract infection, site not specified]89-74-5644Tghaygev Results Test NameValueInterpretationReference RangeFacilityUS OB FOLLOW UP TRANSABDOMINAL APPROACHon 25-52-1318IZ OB FOLLOW UP TRANSABDOMINAL APPROACH FINDINGS: A single, live intrauterine is present with normal cardiac rate of135 beats per minute. Normal activity and amniotic fluid volume. Amniotic fluid index is 12 cm. Morphology is grossly normal. The current sonographic age is 31 weeks and 6 days, based on the following measurements: BPD 8.1cm (32 weeks,3 days) Head Circumference 28.8cm (31 weeks,5 days) Abdominal Circumference 27.8cm (31 weeks, 6 days) Femur Length 6.0cm (31 weeks, 2 days) Presentation Cephalic Weight (g) by Percentile 57.4% * These measurements result in an estimated date of delivery of July 14, 2025. The current estimated weight is 1822 grams (4 pound, 0 ounces). Comparison made with prior examination of March 11, 2025 and delivery at that time was July 18, 2025 and weight by percentile was 56.8% IMPRESSION: Single, live intrauterine , current sonographic age of 31 weeks and 6 days, with an estimated date of delivery of July 14, 2025 . * Estimated Weight (g) by Percentile is based upon an accurate estimated age based on last menstrual period. TRANSCRIBED BY: ELECTRONICALLY SIGNED BY: Virgilio Briseno AvailableComment on above:Order Comment: US OB SCAN FOR GROWTH Estimated Date of Delivery: 07/19/25 Gestational Age as of 04/30/2025: 59x4eVoremwjbxt macro (dipstick) panel (U)on 72-35-0235Zvccskxfs, UANegativeNegative - 4(70) +++ mg/dLNOMS HealthcareBlood, UAPositiveNegative - 50 Dennis/mcLNOMS HealthcareClarity, UAClearNOMS Healthcare Color, UAYellowNOMS HealthcareGlucose, UANegativeNegative - 1999(110) ++++ mg/dL NOMS HealthcareInterpretation and review of laboratory resultsAbnormalNOMS HealthcareKetones, UANegativeNegative - 160(16) ++++ mg/dLNOMS Healthcare Leukocytes, UANegativeNegative - 500+++ Wilman/mcLNOMS HealthcareNitrite, UA NegativeNegative - PositiveNOMS HealthcarepH, UA6.05 - 9NOMS HealthcareProtein, UANegativeNegative - 2000(20) ++++ mg/dLNOMS HealthcareSpec Grav, UA1.0101 - 1.03NOMS HealthcareUrobilinogen, UA1.00.2 - 12 mg/dLNOMS HealthcareNOMS HealthcareUrinalysis macro (dipstick) panel (U)on 02-92-0774Zodbhqier, UA NegativeNegative - 4(70) +++ mg/dLNOMS HealthcareBlood, UANegativeNegative - 50 Dennis/mcLNOMS HealthcareClarity, UACloudyNOMS HealthcareColor, UAYellowNOMS HealthcareGlucose, UANegativeNegative - 2000(110) ++++ mg/dLNOMS Healthcare Interpretation and review of laboratory resultsNormalNOMS HealthcareKetones, UA NegativeNegative - 160(16) ++++ mg/dLNOMS HealthcareLeukocytes, UANegative Negative - 500+++ Wilman/mcLNOMS HealthcareNitrite, UANegativeNegative - Positive NOM HealthcarepH, UA7.05 - 9NOHI HealthcareProtein, UANegativeNegative - 2000(20) ++++ mg/dLCEDAR CITY HOSPITAL HealthcareSpec Grav, UA1.0151 - 1.03NOShriners Hospitals for Children Urobilinogen, UA1.00.2 - 12 mg/dLCrittenton Behavioral Health HealthcareALL CBC WITH AUTO DIFFon 39-72-2691YXBLRJZHJ ABSOLUTE DLXF2SZPN HealthcareBasophils/100 WBC (Bld) 0.5 %0.2 - 2.0 %[facility] InstituteEosinophils/100 WBC (Bld)1.4 %0.9 - 7.0 %[facility] InstituteErythrocyte distribution width (RBC) [Ratio]13.8 %11.0 - 15.0 %[facility] InstituteHematocrit (Bld) [Volume fraction]34 %Low36.0 - 48.0 %[facility] Hemoglobin (Bld) [Mass/Vol]11.6 g/dLLow12.0 - 16.0 g/dLFreeman Cancer InstituteIMMATURE GRANULOCYTES ABS AUTO0.07HighFreeman Cancer InstituteImmature granulocytes/100 WBC (Bld) 0.8 %High0.0 - 0.5 %[facility] InstituteInterpretation and review of laboratory resultsAbnormalFreeman Cancer InstituteLYMPHOCYTES ABSOLUTE AUTO1.6NOMS [facility] Lymphocytes/100 WBC (Bld)18.6 %Low20.5 - 60.0 %[facility] CenterH (RBC) [Entitic mass]30.3 pg26.7 - 34.0 pgSaint Mary's Health CenterHC (RBC) [Mass/Vol]34.1 g/dL29.9 - 35.2 g/dLSaint Mary's Health CenterV (RBC) [Entitic vol]88.8 fL81.0 - 99.0 fLFreeman Cancer InstituteMONOCYTES ABSOLUTE AUTO0.5NOShriners Hospitals for ChildrenMonocytes/100 WBC (Bld)5.7 % 1.7 - 12.0 %[facility] InstituteNEUTROPHILS ABSOLUTE AUTO6.2NOMS [facility] Neutrophils/100 WBC (Bld)73 %43.0 - 75.0 %[facility] InstitutePlatelet mean volume (Bld) [Entitic vol]9.8 fL9.5 - 13.5 fLNOMS HealthcareTBH EO #0.1N[facility]S Healthcare TBH IKU225JPQE HealthcareTBH RBC3.83LowNOMS HealthcareTBH WBC8.5N[facility] CLINISYNCNOHI HealthcareUrinalysis macro (dipstick) panel (U)on 04-09-2025 Bilirubin, UANegativeNegative - 4(70) +++ mg/dLNOMS HealthcareBlood, UANegative Negative - 50 Dennis/mcLNOHI HealthcareClarity, UACloudyNOMS HealthcareColor, UA YellowNOMS HealthcareGlucose, UANegativeNegative - 2000(110) ++++ mg/dLNOHI HealthcareInterpretation and review of laboratory resultsAbnormalNOHI Healthcare Ketones, UANegativeNegative - 160(16) ++++ mg/dLNOHI HealthcareLeukocytes, UA NegativeNegative - 500+++ Wilman/mcLNOHI HealthcareNitrite, UANegativeNegative - PositiveNOHI HealthcarepH, UA85 - 9NOHI HealthcareProtein, UAPositiveNegative - 2000(20) ++++ mg/dLNOHI HealthcareSpec Grav, UA1.011 - 1.03NO[facility] Urobilinogen, UA1.00.2 - 12 mg/dLNOTwo [facility] HealthcareRECURRENT VAGINITIS (HTRX)on 02-65-6067DIFQHXHXP CKZEEMN9PZSV HealthcareATOPOBIUM VAGINAE Not detectedNOHI HealthcareBVAB 2,3 (BACTERIAL VAGINOSIS ASSOCIATED BACTERIA 2, 3); MOBILUNCUS SQE9QRAY HealthcareBVAB 2,3 (BACTERIAL VAGINOSIS ASSOCIATED BACTERIA 2, 3); MOBILUNCUS SPPNot detectedNOMS HealthcareCANDIDA ALBICANS, PARAPSILOSIS, COHUANRDFV4BZMT HealthcareCANDIDA ALBICANS, PARAPSILOSIS, TROPICALISNot detectedNOMS HealthcareCANDIDA PKLGJSKV5BUIK HealthcareCANDIDA GLABRATANot detectedNOMS HealthcareCANDIDA NWOJXG3IHOP HealthcareCANDIDA KRUSEI Not detectedNOMS HealthcareCHLAMYDIA NEJRCCVYDEI5SYTM HealthcareCHLAMYDIA TRACHOMATISNot detectedNOMS HealthcareGARDNERELLA UQKLDBHSO1ZQAV Healthcare GARDNERELLA VAGINALISNot detectedNOMS HealthcareMEGASPHAERA (TYPES 1, 2)0NOMS HealthcareMEGASPHAERA (TYPES 1, 2)Not detectedNOMS HealthcareMYCOPLASMA UXXMNOHVDT9MGEU HealthcareMYCOPLASMA GENITALIUMNot detectedNOMS Healthcare NEISSERIA MFMXAGGLKYB5VUTY HealthcareNEISSERIA GONORRHOEAENot detectedNOMS HealthcareTRICHOMONAS JKWCNLVHR2JRFL HealthcareTRICHOMONAS VAGINALISNot detected NOMS HealthcareNOMS HealthcareUS OB 14+ WEEKS ANATOMY SCANon 61-25-2809UX OB 14+ WEEKS ANATOMY SCANFINDINGS: Comparison December 11, 2024. A single, live intrauterine is present with normal cardiac rate of 153 beats per minute. Normal activity and amniotic fluid volume. Morphology is grossly normal. The placenta isposterior, inferior aspect 4.2 cm from the closed [...] menstrual period. TRANSCRIBED BY: ELECTRONICALLY SIGNED BY: Virgilio Briseno AvailableComment on above:Order Comment: US OB ANATOMY SINGLE W US OB CERVICAL LENGTH Estimated Date of Delivery: 07/19/25 Gestational Age as of 02/11/2025: 84v6wAjspzdjpcn macro (dipstick) panel (U)on 35-47-3108Wdkeestcf, UANegativeNegative - 4(70) +++ mg/dLNOMS HealthcareBlood, UANegativeNegative - 50 Dennis/mcLNOMS HealthcareClarity, UAClearNOMS Healthcare Color, UAYellowNOMS HealthcareGlucose, UANegativeNegative - 2000(110) ++++ mg/dL NOMS HealthcareInterpretation and review of laboratory resultsNormalNOMS HealthcareKetones, UANegativeNegative - 160(16) ++++ mg/dLNOHI Healthcare Leukocytes, UANegativeNegative - 500+++ Wilman/mcLNOMS HealthcareNitrite, UA NegativeNegative - PositiveNOMS HealthcarepH, UA65 - 9NOMS HealthcareProtein, UA NegativeNegative - 2000(20) ++++ mg/dLNOMS HealthcareSpec Grav, UA1.011 - 1.03 NOMS HealthcareUrobilinogen, UA1.00.2 - 12 mg/dLNOMS HealthcareNOMS Healthcare Urinalysis macro (dipstick) panel (U)on 10-58-8643Bdrymcqni, UANegativeNegative - 4(70) +++ mg/dLNOMS HealthcareBlood, UANegativeNegative - 50 Dennis/mcLNOHI HealthcareClarity, UAClearNOMS HealthcareColor, UAYellowNOHI HealthcareGlucose, UANegativeNegative - 2000(110) ++++ mg/dLNOHI HealthcareInterpretation and review of laboratory resultsAbnormalNOMS HealthcareKetones, UANegativeNegative - 160(16) ++++ mg/dLNOHI HealthcareLeukocytes, UANegativeNegative - 500+++ Wilman/mcL NOMS HealthcareNitrite, UANegativeNegative - PositiveNOMS HealthcarepH, UA6.55 - 9NOMS HealthcareProtein, UATraceNegative - 2000(20) ++++ mg/dLNOHI Healthcare Spec Grav, UA1.011 - 1.03NOHI HealthcareUrobilinogen, UA0.20.2 - 12 mg/dLNOMS HealthcareNOMS HealthcareALL CBC WITH AUTO DIFFon 14-22-5801GTNAYOZFZ ABSOLUTE NRIV3HPBM HealthcareBasophils/100 WBC (Bld)0.5 %0.2 - 2.0 %[facility] Eosinophils/100 WBC (Bld)1.6 %0.9 - 7.0 %NOMS HealthcareErythrocyte distribution width (RBC) [Ratio]12.9 %11.0 - 15.0 %NOMS HealthcareHematocrit (Bld) [Volume fraction]34.9 %Low36.0 - 48.0 %NOMS HealthcareHemoglobin (Bld) [Mass/Vol]12.1 g/dL12.0 - 16.0 g/dLFreeman Cancer InstituteIMMATURE GRANULOCYTES ABS AUTO0.02NOShriners Hospitals for ChildrenImmature granulocytes/100 WBC (Bld)0.2 %0.0 - 0.5 %[facility] Interpretation and review of laboratory resultsAbnoSt. Mary Rehabilitation Hospital LYMPHOCYTES ABSOLUTE ELKN9HWMNShriners Hospitals for ChildrenLymphocytes/100 WBC (Bld)22.1 %20.5 - 60.0 %[facility] CenterH (RBC) [Entitic mass]30.5 pg26.7 - 34.0 pgSaint Mary's Health CenterHC (RBC) [Mass/Vol]34.7 g/dL29.9 - 35.2 g/dLSaint Mary's Health CenterV (RBC) [Entitic vol]87.9 fL81.0 - 99.0 fLFreeman Cancer InstituteMONOCYTES ABSOLUTE AUTO0.5NOShriners Hospitals for ChildrenMonocytes/100 WBC (Bld)5.3 %1.7 - 12.0 %[facility] InstituteNEUTROPHILS ABSOLUTE AUTO6.2NOMS [place] [facility] HospitalNeutrophils/100 WBC (Bld)70.3 %43.0 - 75.0 %[facility] InstitutePlatelet mean volume (Bld) [Entitic vol]9.5 fL9.5 - 13.5 fLFreeman Cancer InstituteTB EO #0.1NOMS [place] [facility] HospitalTB TZP003RMVPSaint Luke's North Hospital–[facility] RBC3.97LowNOSaint Luke's North Hospital–[facility] WBC8.8NOShriners Hospitals for ChildrenCLINISYNCNChildren's Mercy HospitalHCG ( test) Ql (U)on 08-80-6289Stfrrhlduzikme and review of laboratory resultsAbnoSt. Mary Rehabilitation HospitalPreg Test, UrPositiveNegativeCrittenton Behavioral Health HealthcareUS OB TRANSVAGINALon 32-00-9997HT OB TRANSVAGINALEXAM: US OB TRANSVAGINAL HISTORY: Dating. COMPARISON: None [...] II, MD, PHD at 12-Dec-2024 08:26:33 AM [facility]eleradiologyNormalNot AvailableComment on above:Order Comment: US OB TRANSVAGINAL No LMP recorded.Urinalysis macro (dipstick) panel (U)on 85-16-4677Wwgdkjyot, UA NegativeNegative - 4(70) +++ mg/dLNOMS HealthcareBlood, UANegativeNegative - 50 Dennis/mcLNOMS HealthcareClarity, UAClearNOMS HealthcareColor, UAYellowNOMS HealthcareGlucose, UANegativeNegative - 1999(110) ++++ mg/dLNOMS Healthcare Interpretation and review of laboratory resultsNormalNOMS HealthcareKetones, UA NegativeNegative - 160(16) ++++ mg/dLNOMS HealthcareLeukocytes, UANegative Negative - 500+++ Wilman/mcLNOMS HealthcareNitrite, UANegativeNegative - Positive NOMS HealthcarepH, UA5.55 - 9NOMS HealthcareProtein, UANegativeNegative - 2000(20) ++++ mg/dLNOMS HealthcareSpec Grav, UA1.021 - 1.03N[facility] Urobilinogen, UA1.00.2 - 12 mg/dLNOMS HealthcareNOMS HealthcareIGP,APTIMA HPV,AGE GDLNon 87-61-0539YTJ GDLN ACOG TESTINGNote.NOMS HealthcareComment on above:TESTS RESULT FLAG UNITS REF RANGE LAB Clinician Provided Cytology Information Source.............Cervix;Endocervix No. of containers..01 ThinPrep Vial Francesco Colon... FLAG LEGEND: L-Low Normal,H-High Normal,LL-Alert Low,HH-Alert High <-Panic Low,>-Panic High,A-Abnormal,AA-Critical Abnormal Performed at: 01 =G [facility] [address] Aga Cade MD, IGP, RFX APTIMA HPV ASCUNote.[facility] Cancer InstituteComment on above:TESTS RESULT FLAG UNITS REF RANGE LAB DIAGNOSIS: 02 NEGATIVE FOR INTRAEPITHELIAL LESION OR MALIGNANCY. Specimen adequacy: 02 Satisfactory for evaluation. Endocervical and/or squamous metaplastic cells (endocervical component) are present. Performed by: 02 Genesis Dunn, Surgical Technology Instructor ([facility]) . 02 Note: Note 03 The [...] Low,>-Panic High,A-Abnormal,AA-Critical Abnormal Performed at: 02 [facility] [address] [place] [address] Pa Schilling MD, [address] [facility] [address] Aga Cade MD, Performed at: =G - [facility] [address] [id number] Disability Benefits Specialist: Aga Cade MD, Phone: [phone] Performed at: [facility] [address] [place], [place] [id number] Disability Benefits Specialist: Pa Schilling MD, Phone: [phone] BRUSH-SPATULA CERVIX ENDOCERVIX CLINISYBaptist Memorial Hospital for WomenCytology Cervical or vaginal smear or scraping study Ordered By: Winifred Bhatia on 90-38-8663FKJRSSM Health [facility] ACOG PANEL 2: 21 to 29on 08-28-2022..NormalThe Providence HospitalComment on above:Result Comment: Performed at: WBPerformed By: #### [id number] #### [facility] [address] [place] [address] Dr. Randee Renee Gdln ACOG Vqgfswg24-45JagwgaJqlThe Christ HospitalComment on above:Performed By: #### [id number] #### [facility] [address] [place] [address] Dr. Randee CodyDIAGNOSIS:CommentHarrison Community Hospital on above: Result Comment: NEGATIVE FOR INTRAEPITHELIAL LESION OR MALIGNANCY. THIS SPECIMEN WAS RESCREENED PART OF OUR HIGH SCHOOL PROFESSIONAL PROGRAM. Performed at: WBPerformed By: #### [id number] #### [facility] [address] [place] [address] Dr. Randee CodyMethodology:CommentHarrison Community Hospital on above: Result Comment: This liquid based ThinPrep(R) pap test was screened with the use of an image guided system. Performed at: WBPerformed By: #### [id number] #### [place] [address] [address] Randee CodyNote:CommentHarrison Community Hospital on above:Result Comment: The Pap smear is a screening test designed to aid in the detection of premalignant and malignant conditions of the uterine cervix. It is not a diagnostic procedure and should not be used as the sole means of detecting cervical cancer. Both false-positive and false-negative reports do occur. . Performed at: WBPerformed By: #### [id number] #### [facility] [address] [place] [address] Dr. Randee CodyPerformed by:CommentHarrison Community Hospital on above: Result Comment: Raya Humphries, Surgical Technology Instructor (ASCP) Performed at: KWCYTPerformed By: #### [id number] #### [facility] [address] [place] [address] Dr. Randee CodyQC reviewed by:KalpanaHarrison Community Hospital on above:Result Comment: Fernanda Mena, Supervisory Surgical Technology Instructor (ASCP) Performed at: WBPerformed By: #### [id number] #### [facility] [address] [place] [address] Dr. Randee CodyReflex Criteria:[facility] on above:Result Comment: The HPV DNA reflex criteria were not met with this specimen result therefore, no HPV testing was performed. . Performed at: WBPerformed By: #### [id number] #### [facility] [address] [place], [place] [address] Dr. Randee CodySpecimen adequacy:CommentNoThe Christ HospitalComment on above:Result Comment: Satisfactory for evaluation. Endocervical and/or squamous metaplastic cells (endocervical component) are present. Performed at: WBPerformed By: #### [id number] #### [facility] [address] [place], [place] [address] Dr. Randee Cody Vital Signs Date TimeVital SignValuePerforming AdanizganYwkucjjg78-70-3137 10:32-0500Body mass index (BMI) [Ratio]38.44 kg/q1Dbygz Suhail DO Work Phone: [phone] [place] [address]-10-2025 10:32-0500Body jvkfah509.78 kgCorey Suhail DO Work Phone: [phone] [place], [place] [address]Pinhozldac79-00-6552 10:32-0500Diastolic blood odthzdxd10 mm[Hg]Mana Suhail DO Work Phone: [phone])[facility] [place], [place] [address]Dpuguxyjas88-71-5524 10:32-0500Systolic blood upyxqddx518 mm[Hg]Mana Suhail DO Work Phone: [phone] [place], [place] [address]Gzeswuqjzh22-79-5340 09:02-0400Body mass index (BMI) [Ratio]37.96 kg/m2Amy Ritu MADDOX Work Phone: [phone])[facility] [place], [place] [address]Dsptfjmjbp59-14-1955 09:02-0400Body .47 kgKemi MADDOX Work Phone: [phone])[facility] [place], [place] [address]Ijrapimvor70-53-2422 09:02-0400Diastolic blood xlhuzraw51 mm[Hg]Kemi MADDOX Work Phone: [phone])[facility] [place], [place] [address]Dlbxvkliqt34-21-0670 09:02-0400Systolic blood judszyqv735 mm[Hg]Kemi MADDOX Work Phone: [phone] [place], [place] [address]-02-2025 08:57-0400Body mass index (BMI) [Ratio]37.13 kg/x8CypctkjtLe Thompson NP Work Phone: [phone] [place], [place] [address]Bftnvgqysz81-51-1482 08:57-0400Body .21 kgThomaslinda Jay TRAFFIC CONTROL TECHNICIAN Work Phone: [facility] InstituteVutigoosts85-02-5367 08:57-0400Diastolic blood dbebtfwe50 mm[Hg]Le Jay TRAFFIC CONTROL TECHNICIAN Work Phone: [facility] InstituteLsepiankhs80-25-4759 08:57-0400Systolic blood avknbnfz698 mm[Hg]Le Jay TRAFFIC CONTROL TECHNICIAN Work Phone: [phone] [place], [place] [address]Adbiehfleq09-20-7508 09:46-0400Body mass index (BMI) [Ratio]36.41 kg/m2Amy Ritu MADDOX Work Phone: [phone] [place], [place] [address]Ihcdkdpwfc75-25-6312 09:46-0400Body .25 kgKemi MADDOX Work Phone: [facility] InstituteYsrsqwjagm21-89-2461 09:46-0400Diastolic blood iuhdpytd10 mm[Hg]Kemi MADDOX Work Phone: [phone] [place], [place] [address]Kofwzznisc76-58-3377 09:46-0400Systolic blood mm[Hg]Kemi MADDOX Work Phone: [phone]-[facility] InstituteVloxrjvhuv35-68-2061 14:04-0400Body mass index (BMI) [Ratio]35.3 kg/g7Lwczq Suhail DO Work Phone: [facility] InstituteRnxqlakjfe90-08-1306 14:04-0400Body omfrqc65.22 kgCorey Suhail DO Work Phone: [phone] [place], [place] [address]Aysbullehk79-32-7477 14:04-0400Diastolic blood mm[Hg]Mana Suhail DO Work Phone: [phone]-[facility] InstituteXidyswyogi29-61-5154 14:04-0400Systolic blood jxyutrbp565 mm[Hg]Mana Suhail DO Work Phone: [phone]-[facility] InstituteAvkvxoiesp87-49-4553 09:44-0400Body mass index (BMI) [Ratio]34.11 kg/h6Lfmrw Suhail DO Work Phone: [phone] [place], [place] [address]Fjuodrczbz98-64-4354 09:44-0400Body vpxudz34.99 kgCorey Suhail DO Work Phone: [facility] InstituteDqbosjhajf06-92-4604 09:44-0400Diastolic blood lwechpvl67 mm[Hg]Mana Suhail DO Work Phone: NOShriners Hospitals for ChildrenMioqjcxvam73-94-2183 09:44-0400Systolic blood hdjipkpg121 mm[Hg]Mana Suhail DO Work Phone: [facility] InstituteMyysgferrk89-38-4533 14:50-0400Body mass index (BMI) [Ratio]34.11 kg/m2[facility]06-05-2025 14:50-0400Body ohtcex28.99 kgBarton [facility] Hospital02-24-2025 14:11-0500Body mass index (BMI) [Ratio]35.41 kg/d7Zbypj Suhail DO Work Phone: [facility] InstituteGmwqoarrsw14-66-3352 14:11-0500Body ooxoct85.53 kgCorey Suhail DO Work Phone: [facility] InstitutePzrdgduror86-89-9635 14:11-0500Diastolic blood albdjifj70 mm[Hg]Mana Suhail DO Work Phone: [facility] InstituteFatteodywh29-05-1150 14:11-0500Systolic blood cyailzks487 mm[Hg]Mana Suhail DO Work Phone: [facility] Encounters Encounter DateEncounter TypeCare ProviderFacilityStart: 05-18-2025 End: 84-30-0580Odwwtwpq flow sheetCorey Suhail DO Work Phone: [facility] [place] OBGYNComment on above:Third trimester ([facility]); 31 weeks gestation of ([facility])Start: 05-18-2025 End: 99-61-1431fyvxmdjjhkSYSKH FAZIONot AvailableStart: 04-30-2025 End: 34-87-4404Jlxrtw flowsheetAmy Ritu MADDOX Work Phone: [facility] [place] [facility]BGYNStart: 04-30-2025 End: 84-34-7112Oiflle flowsGina MADDOX Work Phone: [facility]BGYNStart: 04-30-2025 End: 04-79-6561Aqkzgwhr flow sheetKemi Regan PA Work Phone: [facility] [place] OBGYNComment on above:28 weeks gestation of ([facility]); Third trimester ([facility]); Size of fetus inconsistent with dates in third trimester ([facility])Start: 04-30-2025 End: 56-31-9782efcifgjriqQWC Ambrosio AvailableStart: 04-13-2025 End: 16-79-4537Klimjhovf Result EncounterKristina Jay TRAFFIC CONTROL TECHNICIAN Work Phone: [facility] External Department UnsolicitedStart: 04-13-2025 End: 34-72-2979Tjvmrrayh Result EncounterKristina Jay TRAFFIC CONTROL TECHNICIAN Work Phone: [facility] External Department UnsolicitedStart: 04-09-2025 End: 32-90-2036Wrtqyy flowsheetKristina Jay TRAFFIC CONTROL TECHNICIAN Work Phone: [facility] [place] [facility]BGYNStart: 04-09-2025 End: 18-88-2531Gsomgt flowsheetKristina Jay TRAFFIC CONTROL TECHNICIAN Work Phone: [facility]BGYNStart: 04-09-2025 End: 10-32-6485Hbdvydap flow sheetKristina Jay TRAFFIC CONTROL TECHNICIAN Work Phone: [facility]anny OBGYNComment on above:25 weeks gestation of ([facility]); Second trimester ([facility]); Diabetes mellitus screeningStart: 04-09-2025 End: 45-26-5381qruhdpaiccJPAECZHC EBERLYNot AvailableStart: 03-11-2025 End: 75-32-5011Ronwgfgi flow sheetKemi MADDOX Work Phone: [facility] [place] OBGYNComment on above:Second trimester ([facility]); 21 weeks gestation of ([facility])Start: 03-11-2025 End: 37-76-3978nyxhesdiinMCF RAMEYNot AvailableStart: 02-11-2025 End: 97-67-4467Ujdgic flowsheetCorey Suhail DO Work Phone: [facility] OBGYNStart: 02-11-2025 End: 70-84-8287Aicxmv flowsheetCorey Suhail DO Work Phone: [facility]BGYNStart: 02-11-2025 End: 30-82-9708Vxicdtbu Result EncounterCorey Suhail DO Work Phone: [facility] External Department UnsolicitedStart: 02-11-2025 End: 83-72-2137Zyghzhzv flow sheetCorey Suhail DO Work Phone: [facility] [place] OBGYNComment on above:17 weeks gestation of ([facility]); Second trimester ([facility]); Screening, , for anatomic survey ([facility]); Exposure to STD; Vaginal dischargeStart: 02-11-2025 End: 96-27-6308cznzodtodtUKCRP FAZIONot AvailableStart: 01-12-2025 End: 84-39-1133Caltvd flowsheetCorey Suhail DO Work Phone: [facility] BCP OBStart: 01-12-2025 End: 74-38-6481Umhkip flowsheetCorey Suhail DO Work Phone: [facility] BCP OBStart: 01-12-2025 End: 28-32-7512Nwtukqts flow sheetCorey Suhail DO Work Phone: [facility] BCP OBComment on above:Urinary tract infection without hematuria, site unspecified (Primary Dx); 13 weeks gestation of ([facility]); Second trimester ([facility]); NauseaStart: 01-12-2025 End: 67-02-1958arxnmgzlekEITOX FAZIONot AvailableStart: 12-29-2024 End: 16-37-8440Kzahbrwjj Result EncounterCorey Suhail DO Work Phone: noMS External Department UnsolicitedStart: 12-29-2024 End: 05-48-0866Xewminpaa Result EncounterCorey Suhail DO Work Phone: no[facility] External Department UnsolicitedStart: 12-11-2024 End: 12-08-0185Dpfxxw outpatient visit 5 minutesNoms Bcp Ob Suhail NurseNOMS BCP OBComment on above:GA: 6f0uMqylx: 12-11-2024 End: 74-06-1186rhzjmqqppzLFHXX FAZIONot AvailableStart: 09-01-2024 End: 46-64-7046Csxbsb flowsheetCorey Suhail DO Work Phone: [facility] BCP OBStart: 09-01-2024 End: 44-11-7589Opwkeo flowsheetCorey Suhail DO Work Phone: [facility] BCP OBStart: 09-01-2024 End: 23-82-3599Mqqrkmuty Result EncounterCorey Suhail DO Work Phone: n[facility] External Department UnsolicitedStart: 09-01-2024 End: 25-23-3388Obzkwcp encounter procedureCorey Suhail DO Work Phone: [facility] Work Phone: Start: 09-01-2024 End: 49-72-3929Yuzedyzv preventive med est patient 18-39 yrsCorey Suhail DO Work Phone: noms BCP OBComment on above:Well woman exam with routine gynecological examStart: 09-01-2024 End: 99-92-2732ryhhnqntrjOSYFL FAZIONot AvailableStart: 08-21-2022 End: 05-25-2664rhltiggmfpFZ DOCTOR MISCFacility:W6Ilyve: 01-04-2018 End: 37-31-7528XwqwbzecpfXookbm J LampeFacility:[facility] Procedures DateProcedureProcedure DetailPerforming ClinicianStart: 31-14-9023Rzgbt dip stick/tablet rgnt non-auto w/o micrscpCorey Suhail DO Work Phone: Start: 25-26-7450Vtkkq dip stick/tablet rgnt non-auto w/o micrscpAmy Ritu PA Work Phone: Start: 38-72-2061UOQ CBC WITH AUTO DIFFKristina Jay TRAFFIC CONTROL TECHNICIAN Work Phone: Start: 85-65-3291Dyflr dip stick/tablet rgnt non-auto w/o micrscpKristina Jay TRAFFIC CONTROL TECHNICIAN Work Phone: Start: 49-18-5665ROPTUFPEG VAGINITIS (HTRX)Mana Suhail DO Work Phone: Start: 94-09-0771Prfsq dip stick/tablet rgnt non-auto w/o micrscpCorey Suhail DO Work Phone: Start: 36-64-4743Twskq dip stick/tablet rgnt non-auto w/o micrscpCorey Suhail DO Work Phone: Start: 88-86-4205CSE CBC WITH AUTO DIFFCorey Suhail DO Work Phone: Start: 12-11-2024 End: 86-61-6338Dppen dip stick/tablet rgnt non-auto w/o micrscpCorey Suhail DO Work Phone: Start: 29-81-5438QMC,APTIMA HPV,AGE GDLNCorey Suhail DO Work Phone: Start: 09-67-7603Qjbx cerv/vag auto thin layer prep mnl screenCorey Suhail DO Work Phone: Plan of Treatment DateCare ActivityDetailAuthorStart: 09-07-2025 End: 43-57-4078Zputrda encounter procedureNOMS BCP OBStart: 06-01-2025 End: 78-54-0978Rehihuv encounter mydxhlfur97/24/2025 10:50 AM EST Routine [facility] [address] [place] [address] [place] [address] Kemi Regan PA [address] [place] [address] [facility] [place] OBGYNStart: 05-18-2025 End: 83-96-7728Gbwdwga encounter aphnkhwdr55/10/2025 10:40 AM EST Routine [facility] [address] [place] [id number] Mana Jang DO [address] [place] [address] [facility] OBGYNStart: 05-18-2025 End: 39-31-5862Sqcfdogiqnhu / ancillary services bfltqcnpyr20/10/2025 10:00 AM EST Ancillary Procedure [facility] [address] [place] [address] [facility] OBGYNStart: 04-30-2025 End: 83-04-9110RW for pregnancyUS OB follow up transabdominal approach Imaging Routine 28 weeks gestation of ([facility]) Size of fetus inconsistent with dates in third trimester ([facility]) Expected: 04/30/2025, Expires: 08/10[facility] Work Phone: comment on above:Expected: 04/30/2025, Expires: 08/31/2025Start: 04-30-2025 End: 58-72-3763Vbqvlin encounter procedureNOMS Franny OBGYNComment on above: ArrivedStart: 04-09-2025 End: 90-51-8880DJD panel - Blood by Automated countCBC Lab Routine Diabetes mellitus screening Expected: 04/09/2025 (Approximate), Expires: 04/09/2026[facility] Work Phone: comment on above:Expected: 04/09/2025 (Approximate), Expires: 04/09/2026Start: 04-09-2025 End: 27-42-2129Ajwksdczpsb of glucose 1 hour after glucose challenge for glucose tolerance testGlucose tolerance, 1 hour Lab Routine Diabetes mellitus screening Expected: 04/09/2025 (Approximate), Expires: 04/09/2026[facility] HealthcareComment on above:Expected: 04/09/2025 (Approximate), Expires: 04/09/2026Start: 04-09-2025 End: 65-29-5839Azggxua encounter procedureNOMS Franny OBGYNComment on above: ArrivedStart: 03-11-2025 End: 22-83-3188Txuinww encounter hprenbhra31/03/2025 9:50 AM EDT Routine [facility] RODRIGUEZ [address] [place], [id number] Kemi Regan PA [address] [place] [address] [facility] OBGYNStart: 03-11-2025 End: 45-01-9902Apjdibqqjruy / ancillary services vxrtqoznnc80/03/2025 8:30 AM EDT Ancillary Procedure [facility] GRAFN [address] [place] [phone] [facility] OBGYNStart: 02-11-2025 End: 20-84-1353Fgjiy fetoprotein, maternalAlpha fetoprotein, maternal Lab Routine 17 weeks gestation of ([facility]) Second trimester ([facility]) Expected: 02/11/2025 (Approximate), Expires: 03/14/2025[facility] Comment on above:Expected: 02/11/2025 (Approximate), Expires: 03/14/2025Start: 02-11-2025 End: 15-59-5857KS for pregnancyUS OB 14+ weeks anatomy scan Imaging Routine Screening, , for anatomic survey ([facility]) Expected: 02/11/2025, Expires: 05/14/2025[facility] HealthcareComment on above:Expected: 02/11/2025, Expires: 05/14/2025Start: 02-11-2025 End: 15-92-5245Gghrlbh encounter tgnxkwiqu01/06/2025 1:50 PM EDT Routine [facility] [address] [place], [id number] Mana Jang, DO [address] [place] [address] ArrivedNOMS Franny OBGYNComment on above:ArrivedStart: 01-12-2025 End: 35-65-0027Ncxajxj encounter procedureNOMS BCP OBComment on above:Arrived Start: 12-11-2024 End: 87-66-0256BWX/RhABO/Rh Lab Routine Missed menses , unspecified gestational age Expected: 12/11/2024 (Approximate), Expires: 12/11/2025N[facility] HealthcareComment on above:Expected: 12/11/2024 (Approximate), Expires: 12/11/2025Start: 12-11-2024 End: 46-13-6018Yhzwh type and Indirect antibody screen panel - BloodType and screen Lab Routine Missed menses , unspecified gestational age Expected: 12/11/2024 (Approximate), Expires: 12/11/2025[facility] Work Phone: comment on above:Expected: 12/11/2024 (Approximate), Expires: 12/11/2025Start: 12-11-2024 End: 74-20-9930Kwyhx of abuse panel - Urine by Screen methodRapid drug screen, urine Lab Routine , unspecified gestational age Encounter for supervision of normal first in first trimester Expected: 12/11/2024 (Approximate), Expires: 12/11/2025[facility] HealthcareComment on above:Expected: 12/11/2024 (Approximate), Expires: 12/11/2025Start: 09-01-2024 End: 95-40-6071Gjnhkxw encounter uxrxpldkw54/24/2025 2:00 PM EST Office Visit [facility] [address] [place] [address] Mana Jang, DO [address] [place] [address] [facility] OBComment on above:ArrivedStart: 29-99-2487Itzxoqioh vaccinationInfluenza Vaccine (#1)[facility] HealthcareBacteria identified in Urine by CultureUrine culture Microbiology Routine Missed menses Ordered: 12/11/2024[facility] HealthcareComment on above:Ordered: 12/11/2024BC W Auto Differential panel - BloodCBC and differential Lab Routine Missed menses , unspecified gestational age Ordered: 12/11/2024[facility] HealthcareComment on above:Ordered: 12/11/2024HLAMYDIA TRACHOMATIS (GENITO/STI)CHLAMYDIA TRACHOMATIS (GENITO/STI) Lab Routine Exposure to STD Ordered: 02/11/2025[facility] HealthcareComment on above:Ordered: 02/11/2025ytology Cervical or vaginal smear or scraping studyPap Smear Pathology and Cytology Routine Well woman exam with routine gynecological exam Ordered: 09/01/2024[facility] Work Phone: comment on above:Ordered: 09/01/2024Hemoglobin A1c/Hemoglobin.total in BloodHemoglobin A1c Lab Routine Missed menses , unspecified gestational age Ordered: 12/11/2024[facility] HealthcareComment on above: Ordered: 12/11/2024Hepatitis B virus surface Ag [Presence] in Serum or Plasma by ImmunoassayHepatitis B surface antigen Lab Routine Missed menses , unspecified gestational age Ordered: 12/11/2024[facility] HealthcareComment on above: Ordered: 12/11/2024Hepatitis C virus Ab [Presence] in Serum or Plasma by ImmunoassayHepatitis C antibody Lab Routine Missed menses , unspecified gestational age Ordered: 12/11/2024[facility] HealthcareComment on above:Ordered: 12/11/2024HIV-1/HIV-2 antigen/antibody combination immunoassayHIV-1 and HIV-2 antibodies Lab Routine Missed menses , unspecified gestational age Ordered: 12/11/2024[facility] HealthcareComment on above:Ordered: 12/11/2024Neisseria gonorrhoeae DNA [Presence] in Unspecified specimen by SHAE with probe detection Neisseria gonorrhea DNA probe, direct Lab Routine Exposure to STD Ordered: 02/11/2025[facility] HealthcareComment on above:Ordered: 02/11/2025Reagin Ab [Presence] in Serum by RPRRPR Lab Routine Missed menses , unspecified gestational age Ordered: 12/11/2024[facility] HealthcareComment on above:Ordered: 12/11/2024Rubella antibody, IgGRubella antibody, IgG Lab Routine Missed menses , unspecified gestational age Ordered: 12/11/2024[facility] HealthcareComment on above:Ordered: 12/11/2024SURESWAB(R) ADVANCED VAGINITIS PLUS, TMASURESWAB(R) ADVANCED VAGINITIS PLUS, TMA Pathology and Cytology Routine Vaginal discharge Ordered: 02/11/2025[facility] Robert Applebaum MD Work Phone: comment on above:Ordered: 02/11/2025 Payers DatePayer CategoryPayerPolicy [id number] [id number] [id number] 2.840.1.418637.3.579.2.593 [id number] 2.840.1.810558.3.579.2.858272-15-4642Obikqyx [id number] 2.840.1.134559.3.57[id number] 2.16.840.1.967157.3.57[id number] 2.16.840.1.503240.3.57[id number] 2.16.840.1.369733.3.57[id number] 2.16.840.1.303794.3.57[id number] 2.16.840.1.376896.3.57[id number] 2.16.840.1.662802.3.57[id number] 2.16.840.1.049860.3.57[id number] 2.16.840.1.932920.3.57[id number] 2.16.840.1.954358.3.57[id number] 2.16.840.1.000102.3.579.2.07215-52-5986Ozck-[id number] Social History DateTypeDetailFacilityStart: 44-34-6163Suroxhx smoking status NHISNever smoked tobaccoNOMS HealthcareStart: 71-53-5246Jcqzfbp use and exposureSmokeless tobacco non-userNOMS HealthcareStart: 01-01-2024 End: 18-85-5251Sofsljlnv beverage intakeCurrent drinker of alcohol (finding)[facility] HealthcareStart: 01-01-2024 End: 91-89-6988Nynkjao of Social functionNOMS HealthcareStart: 01-01-2024 End: 79-76-1013Lwzvhqa use panelNOMS HealthcareStart: 90-21-0855Wzjtmcu Comment OccasionalFreeman Cancer InstituteStart: 11-28-4570Zbb assigned at birthNot on fileFreeman Cancer InstituteStart: 67-35-8752BdhmnvdymNVAT HealthcareStart: 03-04-0145RjyWwkpuw [facility] Clinical Notes 09-01-2024 to 05-18-2025 Note Date & DvuoBtmnAtrixtyz02-93-2363 History of Present illness Narrative* Angelina Plunkett, JYOTHI - 05/18/2025 10:40 AM EST Reason for Appointment: Patient ID: Madelyn [...] nursing note reviewed. Exam conducted with a child abuse worker present. Vitals: Estimated body mass index is 38.44 kg/m as calculated from the following: Height as of 08/21/22: 5' 5 . Weight as of this encounter: 231 lb. BP: 112/62 Patient's last menstrual period was 10/12/2024. Assessment/Plan ICD-10-CM 1. Third trimester ([facility]) Z34.93 2. 31 weeks gestation of ([facility]) Z3A.31 POCT urinalysis dipstick manually resulted Patient presents today for a routine obstetrics appointment. Patient is currently 31w1d with a Estimated Date of Delivery: 07/19/25. Patient to return to clinic in 2 weeks. Patient had growthscan prior to appointment. Documented by Angelina Plunkett LPN on behalf of: Mana Jang DO documented in this encounterFreeman Cancer InstituteFwoehkgvys68-16-8302 History of Present illness Narrative* TAN Edward - 04/30/2025 8:50 AM EDT Reason for Appointment: Patient ID: Madelyn Lopez [...] reviewed. Vitals: Estimated body mass index is 37.96 kg/m as calculated from the following: Height as of 08/21/22: 5' 5 . Weight as of this encounter: 228 lb 1.9 oz. BP: 130/80 Patient's last menstrual period was 10/12/2024. Assessment/Plan ICD-10-CM 1. 28 weeks gestation of ([facility]) Z3A.28 POCT urinalysis dipstick manually resulted 2. Third trimester ([facility]) Z34.93 POCT urinalysis dipstick manually resulted Return OB: Patient presents today for a routine obstetrics appointment. Patient is currently 28w4d . Patient states she is doing well but has complaints of being tired due to current . Patient has verbalizes frequent movement. labor precautions was discussed/given and patient was instructed to perform kick counts three times a day. Orders Placed This Encounter Procedures POCT urinalysis dipstick manually resulted Follow Up: Patient is to return to office in 2 week for routine OB appointment. Documented by Winifred Bhatia MA on behalf of: TAN Edward documented in this encounterFreeman Cancer InstituteQyymhznwfm15-25-7020 History of Present illness Narrative* Le Thompson NP - 04/09/2025 9:00 AM EDT Reason for Appointment: Patient ID: Madelyn Lopez [...] nursing note reviewed. Exam conducted with a child abuse worker present. Vitals: Estimated body mass index is 37.13 kg/m as calculated from the following: Height as of 08/21/22: 5' 5 . Weight as of this encounter: 223 lb 1.9 oz. BP: 130/78 Patient's last menstrual period was 10/12/2024. ASSESSMENT & PLAN ICD-10-CM 1. 25 weeks gestation of ([facility]) Z3A.25 POCT urinalysis dipstick manually resulted 2. Second trimester ([facility]) Z34.92 POCT urinalysis dipstick manually resulted [...] of: Le Thompson NP documented in this encounterFreeman Cancer InstituteLbpmzieojx54-17-8834 History of Present illness Narrative* TAN Edward - 03/11/2025 9:50 AM EDT Reason for Appointment: Patient ID: Madelyn Lopez [...] ASSESSMENT & PLAN ICD-10-CM 1. Second trimester ([facility]) Z34.92 Urine dip 2. 21 weeks gestation of ([facility]) Z3A.21 Urine dip Return OB: Patient [...] behalf of: TAN Edward documented in this encounterFreeman Cancer InstituteEwulcvrxpl26-30-3375 History of Present illness Narrative* Zhanna Gunter, JYOTHI - 02/11/2025 1:50 PM EDT Reason for Appointment: Patient ID: Madelyn Lopez [...] nursing note reviewed. Exam conducted with a child abuse worker present. Vitals: Estimated body mass index is 35.3 kg/m as calculated from the following: Height as of 08/21/22: 5' 5 . Weight as of this encounter: 212 lb 1.9 oz. BP: 124/72 Patient's last menstrual period was 10/12/2024. ASSESSMENT & PLAN ICD-10-CM 1. 17 weeks gestation of ([facility]) Z3A.17 POCT urinalysis dipstick manually resulted Alpha fetoprotein, maternal Alpha fetoprotein, maternal 2. Second trimester ([facility]) Z34.92 POCT urinalysis dipstick manually resulted Alpha fetoprotein, maternal Alpha fetoprotein, maternal 3. Screening, , for anatomic survey ([facility]) Z36.89 US OB 14+ weeks anatomy scan US OB 14+ weeks anatomy scan 4. Exposure to STD Z20.2 CHLAMYDIA TRACHOMATIS (GENITO/STI) Neisseria gonorrhea DNA probe, direct 5. Vaginal discharge N89.8 SURESWAB(R) ADVANCED VAGINITIS PLUS, TMA Return OB/Annual Exam: Patient presents today for a annual exam/routine obstetrics appointment. Patient is currently 09x6wdwylrgxu. Patient states she is doing well but [...] of: Mana Jang DO documented in this encounterFreeman Cancer InstituteWbodsonwna03-62-3231 History of Present illness Narrative* Le Thompson NP - 01/12/2025 9:40 AM EDT Reason for Appointment: Patient ID: Madelyn Lopez [...] nursing note reviewed. Exam conducted with a child abuse worker present. Vitals: Estimated body mass index is 34.11 kg/m as calculated from the following: Height as of 08/21/22: 5' 5 . Weight as of this encounter: 205 lb. BP: 120/72 Patient's last menstrual period was 10/12/2024. ASSESSMENT & PLAN ICD-10-CM 1. Urinary tract infection without hematuria, site unspecified N39.0 2. 13 weeks gestation of ([facility]) Z3A.13 POCT urinalysis dipstick manually resulted 3. Second trimester ([facility]) Z34.92 POCT urinalysis dipstick manually resulted [...] of: Mana Jang DO documented in this encounterFreeman Cancer InstituteMcluczijfi27-98-9515 History of Present illness Narrative* Kenia Carter LPN - 12/11/2024 2:00 PM EDT Reason for Appointment: Patient ID: Madelyn Lopez [...] drink 6-8 glasses of water a day, eatno raw or undercooked meat, and stay away from [facility]. Patient has also been advised to not change litter boxes and eat 6 small meals a day. Patient has been consulted regarding the do's and don'ts ofpregnancy. Patient was given labs and all questions [...] by: Kenia Carter LPN documented in this encounterFreeman Cancer InstituteKfxkwqbpco22-00-9910 History of Present illness Narrative* Angelina Plunkett LPN - 09/01/2024 2:00 PM EST Reason for Appointment: Patient ID: [...] nursing note reviewed. Exam conducted with a child abuse worker present. Vitals: Estimated body mass index is [...] of: Mana Jang DO documented in this encounterNOHI HealthcareEvaluation note* Diagnosis Well woman exam with routine gynecological exam Routine gynecological examination documented in this encounter [facility] HealthcareEvaluation note* Diagnosis Missed menses , unspecified gestational age Encounter for supervision of normal first in first trimester documented in this encounter [facility] HealthcareEvaluation note* Diagnosis Urinary tract infection without hematuria, site unspecified- Primary 13 weeks gestation of ([facility]) Second trimester ([facility]) state, incidental Nausea Nausea alone documented in this encounter [facility] HealthcareEvaluation note* Diagnosis 17 weeks gestation of ([facility]) Second trimester ([facility]) state, incidental Screening, , for anatomic survey ([facility]) Encounter for anatomic survey Exposure to STD Vaginal discharge Leukorrhea, not specified as infective documented in this encounter [facility] HealthcareEvaluation note* Diagnosis Second trimester ([facility]) state, incidental 21 weeks gestation of ([facility]) documented in this encounter [facility] note* Diagnosis 25 weeks gestation of ([facility]) Second trimester ([facility]) state, incidental Diabetes mellitus screening Screening for diabetes mellitus documented in this encounter [facility] HealthcareEvaluation note* Diagnosis 28 weeks gestation of ([facility]) Third trimester ([facility]) state, incidental Size of fetus inconsistent with dates in third trimester ([facility]) documented in this encounter [facility]Evaluation [facility]* Diagnosis Third trimester ([facility]) state, incidental 31 weeks gestation of ([facility]) documented in this encounter [facility] Summary Purpose Family History No Family History Records FoundNo Family History Records FoundNo Family History Records Found Advance Directives No Advanced Directives Records FoundNo Advanced Directives Records FoundNo Advanced Directives Records Found Additional Source Comments INFORMATION SOURCE (unrecogn ized section and content) DATE CREATED AUTHOR 01/05/2018 [facility] DATE CREATED AUTHOR AUTHOR'S ORGANIZ ATION 08/29/2022 [facility] DATE CREATED AUTHOR AUTHOR'S ORGANIZ ATION 05/21/2025 [facility] EPIC Care Teams (unrecognized sec tion and content) Team MemberRelationshipSpecialtyStart DateEnd Date Taylor Roberto, TRAFFIC CONTROL TECHNICIAN [address] [facility] [address] [place] [address] PCP - Alfredo Commercial03/09/24Team MemberRelationshipSpecialtyStart DateEnd Date Taylor Roberto, TRAFFIC CONTROL TECHNICIAN [address] [facility] [address] [place] [address] PCP - Alfredo Commercial03/09/24 Reason for Visit (unrecogniz ed section and content) ReasonCommentsWell Women VisitReasonCommentsAmenorrheaReasonCommentsRoutine Visit FOR RECORDS PERTAINING TO PATIENTS WHO [...] BE BASED ON THE PRIMARY CLINICAL RECORDS. [facility]. provides no warranty or guarantee of the accuracy or completeness of information in this document.
--- OUTSIDE RECORDS SUMMARY | 2025-07-05 18:17 | XMS_ITS | Encounter Summary ---
Author Organization [facility] Address [address] [place] [address] Care Team Providers Care Supervising Law Enforcement Analyst Name Role Phone Unavailable Primary Care Provider Unavailabl e Encounter Details DateTypeDepartmentCare Team (Latest Contact Info)Nkxaiwmiyms73/22/2025amboo flowsheet N[facility] RODRIGUEZ [address] [place] [address] Kemi Chaney PA [address] [place], [facility]11 Social History Tobacco UseTypesPacks/DayYears UsedDateSmoking Tobacco: NeverSmokeless Tobacco: NeverAlcohol UseStandard Drinks/WeekCommentsYes0 (1 standard drink = 0.6 oz pure alcohol)OccasionalEstimated Date of MjxrbxyiAejzywzmEfm67/11/2026Based on last menstrual period of 10/12/2024Sex and Gender InformationValueDate Recorded Sex Assigned at BirthNot on fileLegal VryWilspd44/15/2023 11:19 PM EDTGender IdentityNot on fileSexual OrientationNot on filedocumented as of this encounter Plan of Treatment DateTypeDepartmentCare Team (Latest Contact Info)Wbkzgsjoalv14/29/2025 3:20 PM ESTRoutine [facility] [address] [place] [address] Kemi Chaney PA [address] [place], [facility]11 09/07/2025 9:00 AM ESTOffice Visit [facility] Franny RODRIGUEZ [address] [place] [address] Guero Jang DO [address] [place] [address] [place] [address] documented as of this encounter Visit Diagnoses Not on filedocumented in this encounter
--- OUTSIDE RECORDS SUMMARY | 2025-07-05 18:17 | XMS_ITS | Encounter Summary ---
Author Organization [facility] Address [address] [place] [address] Care Team Providers Care Gas Mask Inspector Name Role Phone Unavailable Primary Care Provider Unavailabl e Encounter Details DateTypeDepartmentCare Team (Latest Contact Info)Ceckmtoqogq69/15/2025linisync Result Encounter [facility]S External Department Unsolicited Kemi Chaney, PA [address] [facility] [address] [place], [facility]11 Social History Tobacco UseTypesPacks/DayYears UsedDateSmoking Tobacco: NeverSmokeless Tobacco: NeverAlcohol UseStandard Drinks/WeekCommentsYes0 (1 standard drink = 0.6 oz pure alcohol)OccasionalEstimated Date of GvkvbxmjQughakdbDhz66/11/2026ased on last menstrual period of 10/12/2024Sex and Gender InformationValueDate Recorded Sex Assigned at BirthNot on fileLegal FhbFackld58/15/2023 11:19 PM EDTGender IdentityNot on fileSexual OrientationNot on filedocumented as of this encounter Plan of Treatment DateTypeDepartmentCare Team (Latest Contact Info)Tlyquxwusxo50/29/2025 3:20 PM ESTRoutine [facility] Franny RODRIGUEZ [address] [place] [address] [place] [phone] Kemi Chaney PA [address] [facility] [place] [address] 09/07/2025 9:00 AM ESTOffice Visit [facility] Franny RODRIGUEZ [address] [facility] [place] [address] Guero Jang, DO [address] [facility] [place] [address] documented as of this encounter Procedures Procedure NamePriorityDate/TimeAssociated DiagnosisCommentsSTREP GP B CULTURE+XHWUPtlygwz57/15/2025 1:35 PM EST documented in this encounter Results * STREP GP B CULTURE+RFLX (06/22/2025 1:35 PM EST)ComponentValueRef RangeTest MethodAnalysis TimePerformed AtPathologist SignatureSTREP GP B CULTURE+RFLX ??Strep Gp B Culture+Rflx TBHSTREP GP B CULTURE+RFLXNegativeTBHSTREP GP B CULTURE+RFLXCenters for Disease Control and Prevention (CDC) andTBHSTREP GP B CULTURE+RFLXAmerican Congress of Obstetricians and GynecologistsTBHSTREP GP B CULTURE+RFLX(ACOG) guidelines for prevention of group BTBHSTREP GP B CULTURE+RFLXstreptococcal (GBS) disease specify co-collection ofTBHSTREP GP B CULTURE+RFLXa vaginal and rectal swab specimen to maximizeTBHSTREP GP B CULTURE+RFLXsensitivity of GBS detection. Per the CDC and ACOG,TBHSTREP GP B CULTURE+RFLXswabbing both the lower vagina and rectumTBHSTREP GP B CULTURE+RFLXsubstantially increases the yield of detectionTBHSTREP GP B CULTURE+RFLXcompared with sampling the vagina alone.TBH STREP GP B CULTURE+RFLXPenicillin G, ampicillin, or cefazolin are indicatedTBH STREP GP B CULTURE+RFLXfor intrapartum prophylaxis of GBSTBHSTREP GP B CULTURE+RFLXcolonization. Reflex susceptibility testing should beTBHSTREP GP B CULTURE+RFLXperformed prior to use of clindamycin only on GBSTBHSTREP GP B CULTURE+RFLXisolates from penicillin-allergic women who areTBHSTREP GP B CULTURE+RFLXconsidered a high risk for anaphylaxis. Treatment withTBHSTREP GP B CULTURE+RFLXvancomycin without additional testing is warranted ifTBHSTREP GP B CULTURE+RFLXresistance to clindamycin is noted.TBHSTREP GP B CULTURE+RFLX Performed at: - [facility]ingswoodTBHSTREP GP B CULTURE+[id number] [place], [place] [id number] GP B CULTURE+RFLXLab Director: Jcarlos Carmona PhD, Phone: [phone] (Source)Anatomical Location / Laterality Collection Method / VolumeCollection TimeReceived Time06/22/2025 1:35 PM EST 06/22/2025 8:52 PM EST Narrative [facility] - 06/27/2025 5:08 PM EST Authorizing ProviderResult TypeResult StatusAmy Ritu CHAVES BLOOD ORDERABLES Final ResultPerforming OrganizationAddressCity/State/ZIP CodePhone Number [facility]IN[facility] TB documented in this encounter Visit Diagnoses Not on filedocumented in this encounter
--- OUTSIDE RECORDS SUMMARY | 2025-07-05 18:17 | XMS_ITS | Clinical Summary ---
Author Organization [facility] Address [address] [place] [address] Care Team Providers Care Vascular Radiologist Name Role Phone Unavailable Primary Care Provider [...] for nausea. 30 tablet 5Active Encounters DateTypeDepartmentCare VpocQbkpkcowswq11/22/2025 2:20 PM ESTRoutine [facility] Franny [place] [address] Kemi Chaney PA Third trimester ([facility]); 37 weeks gestation of ([facility])5Bamboo flowsheet JACQUELINE Cap[place] [address] Kemi Chaney PA 06/22/2025 1:40 PM ESTRoutine [facility] Franny [address] [facility] [place] [place] [address] Kemi Chaney PA Third trimester ([facility]); 36 weeks gestation of ([facility])06/22/2025 1:00 PM ESTAncillary Procedure [facility] Franny Cap[address] [facility] [place] [address] Third trimester ([facility]); SGA (small for gestational age) ([facility])5Clinisync Result Encounter NOMS External Department Unsolicited Kemi Chaney PA 06/15/2025 2:10 PM ESTRoutine [facility] Franny Cap[address] [facility] [place] [place] [address] Guero Jang DO Third trimester ([facility]); 35 weeks gestation of ([facility]); SGA (small for gestational age) ([facility])5Bamboo flowsheet [facility] Franny Cap[address] [facility] [place] [address] Guero Jang DO 06/01/2025 10:50 AM ESTRoutine [facility] Franny [address] [facility] [place] [place] [address] Kemi Chaney PA Third trimester ([facility]); 33 weeks gestation of ([facility])5Bamboo flowsheet [facility] Franny [address] [facility] [place] [place] [address] Kemi Chaney PA 05/18/2025 10:40 AM ESTRoutine [facility] Franny [address] [address] Guero Jang DO Third trimester ([facility]); 31 weeks gestation of ([facility])05/18/2025 10:00 AM ESTAncillary Procedure [facility] Franny [place] [address] 28 weeks gestation of ([facility]); Size of fetus inconsistent with dates in third trimester ([facility])04/30/2025 8:50 AM EDTRoutine [facility] [place] [address] [place] [address] Kemi Chaney PA 28 weeks gestation of ([facility]); Third trimester ([facility]); Size of fetus inconsistent with dates in third trimester ([facility])04/30/2025 Bamboo flowsheet N[facility] Franny [address] [place] [address] Kemi Chaney PA 04/13/2025linisync Result Encounter NOMS External Department Unsolicited Le Thompson NP 04/09/2025 9:00 AM EDTRoutine [facility] Franny RODRIGUEZ [address] [place] [address] [place] [address] Le Thompson NP 25 weeks gestation of ([facility]); Second trimester ([facility]); Diabetes mellitus rplnsralp28/02/2025amboo flowsheet [facility] Franny RODRIGUEZ [address] [place] [address] [place] [address] Le Thompson NP 04/08/2025Travelfrom Last 3 Months Social History Tobacco UseTypesPacks/DayYears UsedDateSmoking Tobacco: NeverSmokeless Tobacco: Never Tobacco Cessation:Counseling Given: Not Answered Alcohol UseStandard Drinks/WeekCommentsYes0 (1 standard drink = 0.6 oz pure alcohol)OccasionalEstimated Date of LsfeucjcIzqyhpmlOod53/11/2026ased on last menstrual period of 10/12/2024Sex and Gender InformationValueDate Recorded Sex Assigned at BirthNot on fileLegal OuuAzocln06/15/2023 11:19 PM EDTGender IdentityNot on fileSexual OrientationNot on file Last Filed Vital Signs Vital SignReadingTime TakenCommentsBlood Kwvivjdy812/7612 2:20 PM EST Urxwd0060 7:02 PM PGVOxrhtfpjnkv48.7 ??C (98 ??F)01/01/2024 7:02 PM EDT Respiratory Rate--Oxygen Wtxnlmwkel01%01/01/2024 7:02 PM EDTInhaled Oxygen Concentration--Tmtusf935 kg (243 lb)06/29/2025 2:20 PM MAQUdnzri174.1 cm (5' 5 ) 08/21/2022 12:00 PM ESTBody Mass Index40.44008/21/2022 12:00 PM EST Plan of Treatment DateTypeDepartmentCare Team (Latest Contact Info)Lltxpwurtvr73/29/2025 3:20 PM ESTRoutine NOM[facility] RODRIGUEZ [address] [facility] [place] [address] Kemi Chaney PA [address] [facility] [place] [address] 09/07/2025 9:00 AM ESTOffice Visit JACQUELINE RODRIGUEZ [address] [facility] [place] [address] Guero Jang DO [address] [facility] [place] [address] Procedures Procedure NamePriorityDate/TimeAssociated DiagnosisCommentsPOCT URINALYSIS BKRXYYJGEqpnwkh52/22/2025 2:25 PM EST Third trimester ([facility]) 37 weeks gestation of ([facility]) POCT URINALYSIS ZJEKSJROOpzkduh31/15/2025 1:55 PM EST Third trimester ([facility]) STREP GP B CULTURE+UHLLPnqogpl12/15/2025 1:35 PM EST US OB FOLLOW UP TRANSABDOMINAL ZCUSTIXNSlesunh32/15/2025 1:29 PM EST Third trimester ([facility]) SGA (small for gestational age) ([facility]) POCT URINALYSIS AMTELLWVCzpceqb61/08/2025 2:53 PM EST Third trimester ([facility]) POCT URINALYSIS MVTBPJRORxvnjsu51/24/2025 10:58 AM EST 33 weeks gestation of ([facility]) POCT URINALYSIS KLMRYCMPNkubbcj52/10/2025 10:41 AM EST 31 weeks gestation of ([facility]) US OB FOLLOW UP TRANSABDOMINAL VVGYVNPXSkipjus16/10/2025 10:19 AM EST 28 weeks gestation of ([facility]) Size of fetus inconsistent with dates in third trimester ([facility]) POCT URINALYSIS PSEUNHSHIsbjuxp09/23/2025 9:07 AM EDT 28 weeks gestation of ([facility]) Third trimester ([facility]) GLUCOSE 1 UQPRYqgovot78/06/2025 9:36 AM EDT ALL CBC WITH AUTO MBTLDmhsfyj96/06/2025 9:36 AM EDT POCT URINALYSIS FLHLONBHWwreroa68/02/2025 9:01 AM EDT 25 weeks gestation of ([facility]) Second trimester ([facility]) from Last 3 Months Results * POCT urinalysis dipstick manually resulted (06/29/2025 2:25 PM EST) Only the most recent of7 resultswithin the time period is included. ComponentValueRef RangeTest MethodAnalysis TimePerformed AtPathologist Signature Color, UAYellowClarity, UAClearGlucose, UANegativeNegative - 1999(110) ++++ mg/dLBilirubin, UANegativeNegative - 4(70) +++ mg/dLKetones, UANegativeNegative - 160(16) ++++ mg/dLSpec Grav, UA1.0201 - 1.03Blood, UANegativeNegative - 50 Dennis/mcLpH, UA6.05 - 9Protein, UANegativeNegative - 2000(20) ++++ mg/dL Urobilinogen, UA1.00.2 - 12 mg/dLLeukocytes, UANegativeNegative - 500+++ Wilman/mcL Nitrite, UANegativeNegative - PositiveSpecimen (Source)Anatomical Location / LateralityCollection Method / VolumeCollection TimeReceived UsbwOjkzh91/22/2025 2:25 PM EST Narrative Authorizing ProviderResult TypeResult StatusKemi Chaney [facility] TEST ENTER/EDIT ORDERABLESFinal Result * STREP GP B CULTURE+RFLX (06/22/2025 1:35 PM EST)ComponentValueRef RangeTest MethodAnalysis TimePerformed AtPathologist SignatureSTREP GP B CULTURE+RFLX ??Strep Gp B Culture+Rflx TBHSTREP GP B CULTURE+RFLXNegativeTBHSTREP GP B CULTURE+RFLXCenters for Disease Control and Prevention (CDC) andTBHSTREP GP B CULTURE+RFLXAmerrobert h. [facility] Congress of Obstetricians and GynecologistsTBHSTREP GP B [...] is noted.TBHSTREP GP B CULTURE+RFLX Performed at: [facility] GP [facility] C[facility]URE+[id number] [place], [place] [id number] GP B CULTURE+RFLXLab Director: Jcarlos Carmona PhD, Phone: [phone] (Source)Anatomical Location / Laterality Collection Method / VolumeCollection TimeReceived Time06/22/2025 1:35 PM EST 06/22/2025 8:52 PM EST Narrative [place] - 06/27/2025 5:08 PM EST Authorizing ProviderResult TypeResult StatusAmy Ritu FISCHER BLOOD ORDERABLES Final ResultPerforming OrganizationAddressCity/State/ZIP CodePhone Number CLINISYFORMERLY [facility] * US OB follow up transabdominal approach (06/22/2025 1:29 PM EST) Only the most recent of2 resultswithin the time period is included. Anatomical RegionLateralityModalityBodyUltrasoundSpecimen (Source)Anatomical Location / LateralityCollection Method / VolumeCollection TimeReceived Time 06/25/2025 3:14 PM EST Impressions 06/25/2025 3:22 PM [...] BY: Eric Gillis DO Authorizing ProviderResult TypeResult StatusCorelupillo BYERS OB US PROCEDURES Final Result * GLUCOSE 1 HOUR (04/13/2025 9:36 AM EDT)ComponentValueRef RangeTest Method Analysis TimePerformed AtPathologist SignatureGLUCOSE 1 UEOE574<130 mg/dLTBH Specimen (Source)Anatomical Location / LateralityCollection Method / Volume Collection TimeReceived Time04/13/2025 9:36 AM EDT1 9:37 AM EDT Narrative [facility] - 04/13/2025 10:24 AM EDT Authorizing ProviderResult TypeResult StatusLe Thompson NPLAB BLOOD ORDERABLESFinal ResultPerforming OrganizationAddressCity/State/ZIP CodePhone Number [facility]INCLEVEL[facility] * (ABNORMAL) ALL CBC WITH AUTO DIFF (04/13/2025 9:36 AM EDT)ComponentValueRef RangeTest MethodAnalysis TimePerformed AtPathologist SignatureTBH WBC8.54.0 - 11.0 10 3/uLTBHTBH RBC3.83(L)4.20 - 5.40 10 6/uLTBHTBH HGB11.6(L)12.0 - 16.0 g/dLTBHTBH HCT34.0(L)36.0 - 48.0 %TBHTBH MCV88.881.0 - 99.0 fLTBHTBH MCH30.3 26.7 - 34.0 pgTBHTBH MCHC34.129.9 - 35.2 g/dLTBHTBH RDW13.811.0 - 15.0 %TBHTBH UGJ033233 - 450 10 3/uLTBHTBH MPV9.89.5 - 13.5 [...] 04/13/2025 9:48 AM EDT Authorizing ProviderResult TypeResult StatusLe Thompson NPCLINISYNCFinal ResultPerforming OrganizationAddressCity/State/ZIP CodePhone Number CLIN[facility]NC TBH from Last 3 Months Insurance
[2025-07-05 18:28] VITALS: BP 109/71; PULSE 114
== END 2025-07-05 19:00 | disposition home or self-care (01) ==
LOC: FBCO 18:14 → FBC 18:15
PROVIDERS: Visit Provider Obstetrics & Gynecology
DX: O36.8190 Decreased fetal movements, unspecified trimester, not applicable or unspecified (principal)
CPT/HCPCS: 59025

== ENCOUNTER 2025-07-08 08:00 | Outpatient (OUT) | payer BC, SELFPAY ==
--- OUTSIDE RECORDS SUMMARY | 2025-06-29 14:20 | XMS_ITS | Encounter Summary ---
Author Organization [facility] Address [address] [place] [address] Care Team Providers Care Mechanical Technologist Name Role Phone Unavailable Primary Care Provider Unavailabl e Reason for Visit * ReasonCommentsRoutine Visit Encounter Details DateTypeDepartmentCare Team (Latest Contact Info)Cadlbdgpngd59/22/2025 2:20 PM ESTRoutine [facility] [address] [place] [phone] Kemi Chaney PA [address] [place] [address] Third trimester ([facility]); 37 weeks gestation of ([facility]) Social History Tobacco UseTypesPacks/DayYears UsedDateSmoking Tobacco: NeverSmokeless Tobacco: NeverAlcohol UseStandard Drinks/WeekCommentsYes0 (1 standard drink = 0.6 oz pure alcohol)OccasionalEstimated Date of VhnryenaIxlqpwwgBnj05/11/2026Based on last menstrual period of 10/12/2024Sex and Gender InformationValueDate Recorded Sex Assigned at BirthNot on fileLegal OcgSsfntu32/15/2023 11:19 PM EDTGender IdentityNot on fileSexual OrientationNot on filedocumented as of this encounter Last Filed Vital Signs Vital SignReadingTime TakenCommentsBlood Mldsflad773/7606/29/2025 2:20 PM EST Pulse--Temperature--Respiratory Rate--Oxygen Saturation--Inhaled Oxygen Concentration--Btdstd569 kg (243 lb)06/29/2025 2:20 PM ESTHeight--Body Mass [...] was 10/12/2024. Assessment/Plan ICD-10-CM 1. Third trimester ([facility]) Z34.93 POCT urinalysis dipstick manually resulted 2. 37 weeks gestation of ([facility]) Z3A.37 POCT urinalysis dipstick manually resulted Assessment/Plan [...] Plan of Treatment DateTypeDepartmentCare Team (Latest Contact Info)Gqgefqvgbag88/07/2026 2:00 PM ESTRoutine [facility] [address] [place] [address] [place] [phone] Guero Jang, [address] [place] [address] 09/07/2025 9:00 AM ESTOffice Visit [facility] [address] [facility] [place] [phone] Guero Jang, [address] [place], [place] [phone] documented as of this encounter Procedures Procedure NamePriorityDate/TimeAssociated DiagnosisCommentsPOCT URINALYSIS IIGZPYRFVprwxan36/22/2025 2:25 PM EST Third trimester ([facility]) 37 weeks gestation of ([facility]) documented in this encounter Results * POCT [...] 2:25 PM EST Narrative Authorizing ProviderResult TypeResult StatusFauquier [facility] TEST ENTER/EDIT ORDERABLESFinal Result documented in this encounter Visit Diagnoses Diagnosis Third trimester ([facility]) state, incidental 37 weeks gestation of ([facility]) documented in this encounter
--- OUTSIDE RECORDS SUMMARY | 2025-07-06 15:20 | XMS_ITS | Encounter Summary ---
Author Organization [facility] Address [address] [place] [address] Care Team Providers Care Helper Animal Laboratory Name Role Phone Unavailable Primary Care Provider Unavailabl e Reason for Visit * ReasonCommentsRoutine Visit Encounter Details DateTypeDepartmentCare Team (Latest Contact Info)Zakpbtsslhb68/29/2025 3:20 PM ESTRoutine [facility] [address] [place] [phone] Kemi Chaney PA [address] [place] [address] 38 weeks gestation of ([facility]); Third trimester ([facility]); SGA (small for gestational age) ([facility]); induced hypertension, antepartum ([facility]); Hypertension affecting in third trimester ([facility]) Social History Tobacco UseTypesPacks/DayYears UsedDateSmoking Tobacco: NeverSmokeless Tobacco: NeverAlcohol UseStandard Drinks/WeekCommentsYes0 (1 standard drink = 0.6 oz pure alcohol)OccasionalEstimated Date of LrdasgvcSkckskkbPlp15/11/2026Based on last menstrual period of 10/12/2024Sex and Gender InformationValueDate Recorded Sex Assigned at BirthNot on fileLegal VygGdodwo37/15/2023 11:19 PM EDTGender IdentityNot on fileSexual OrientationNot on filedocumented as of this encounter Last Filed Vital Signs Vital SignReadingTime TakenCommentsBlood Maegmqdj702/9607/06/2025 3:35 PM EST Pulse--Temperature--Respiratory Rate--Oxygen Saturation--Inhaled Oxygen Concentration--Lrhskv999 kg (245 lb 12.8 oz)07/06/2025 3:35 PM ESTHeight--Body Mass Index40.902 12:00 PM ESTdocumented in this encounter Progress Notes * TAN Edward - 07/06/2025 3:20 PM EST Reason for Appointment: Patient ID: Madelyn Lopez is a 29 y.o. female who presents for Routine Visit Patient presents today for Annual Exam. and Return OB appointment. MEDICATIONS Current Outpatient [...] Appearance: Normal appearance. She is well-developed. Genitourinary: Right Adnexa: not tender and no mass present. Left Adnexa: not tender and no mass present. No cervical discharge. Breasts: Breasts are soft. Right: Normal. Left: Normal. HENT: Head: Normocephalic. Nose: Nose normal. Mouth/Throat: Mouth: Mucous membranes are moist. Cardiovascular: Rate and Rhythm: Normal rate and regular rhythm. Pulmonary: Effort: Pulmonary effort is normal. Breath sounds: Normal breath sounds. Abdominal: General: Bowel sounds are normal. There is no distension. Palpations: Abdomen is soft. Tenderness: There is no abdominal tenderness. There is no guarding or rebound. Musculoskeletal: General: No swelling. Normal range of motion. Cervical back: Normal range of motion. Right lower leg: No edema. Left lower leg: No edema. Neurological: General: No focal deficit present. Mental Status: She is alert and oriented to person, place, and time. Skin: General: Skin is warm and dry. Psychiatric: Mood and Affect: Mood normal. Behavior: Behavior normal. Vitals and nursing note reviewed. Exam conducted with a fruit grading supervisor present. Vitals: Estimated body mass index is 40.9 kg/m?? as calculated from the following: Height as of 08/21/22: 5' 5 . Weight as of this encounter: 245 lb 12.8 oz. BP: Patient's last menstrual period was 10/12/2024. Assessment/Plan ICD-10-CM 1. 38 weeks gestation of ([facility]) Z3A.38 POCT urinalysis dipstick manually resulted 2. Third trimester ([facility]) Z34.93 POCT urinalysis dipstick manually resulted 3. SGA (small for gestational age) ([facility]) P05.10 Assessment/Plan Return OB: Patient presents today for a routine obstetrics appointment. Patient is currently 38w1d . Patient states she is doing well but has complaints of being tired due to current . Patient has verbalizes frequent movement. labor precautions was discussed/given and patient was instructed to perform kick counts three times a day. Patient to have labs drawn and start medication at this time. We will order NST/BPP as blood pressure reading was the same at the second reading. Orders Placed This Encounter Procedures POCT urinalysis dipstick manually resulted Follow Up: Patient is to return to office in 1 week for routine OB appointment. Documented by Maryanne Lopez LPN on behalf of: TAN Edward documented in this encounter Plan of Treatment DateTypeDepartmentCare Team (Latest Contact Info)Onmdjuiiayj59/07/2026 2:00 PM ESTRoutine [facility] [address] [place] [address] [place] [phone] Guero Jang, DO [address] [place] [address] 09/07/2025 9:00 AM ESTOffice Visit [facility] [address] [place] [address] [place] [phone] Guero Jang, DO [address] [place] [address] NameTypePriorityAssociated DiagnosesOrder ScheduleCreatinineLabRoutine induced hypertension, antepartum ([facility]) Expected: 07/06/2025 (Approximate), Expires: 07/06/2026Protein, urine, 24 hour LabRoutine induced hypertension, antepartum ([facility]) Expected: 07/06/2025 (Approximate), Expires: 07/06/2026Pt and pttLabRoutine induced hypertension, antepartum ([facility]) Expected: 07/06/2025, Expires: 07/06/2026BC and differentialLabRoutine induced hypertension, antepartum ([facility]) Expected: 07/06/2025 (Approximate), Expires: 07/06/2026Uric acidLabRoutine induced hypertension, antepartum ([facility]) Expected: 07/06/2025 (Approximate), Expires: 07/06/2026Lactate dehydrogenaseLab Routine induced hypertension, antepartum ([facility]) Expected: 07/06/2025, Expires: 07/06/2026LTLabRoutine induced hypertension, antepartum ([facility]) Expected: 07/06/2025 (Approximate), Expires: 07/06/2026STLabRoutine induced hypertension, antepartum ([facility]) Expected: 07/06/2025 (Approximate), Expires: 07/06/2026UNLabRoutine induced hypertension, antepartum ([facility]) Expected: 07/06/2025, Expires: 07/06/2026Protein / creatinine ratio, urineLab Routine 38 weeks gestation of ([facility]) Third trimester ([facility]) induced hypertension, antepartum ([facility]) Expected: 07/06/2025 (Approximate), Expires: 07/06/2026US biophysical profile w non stress testImagingRoutine Hypertension affecting in third trimester ([facility]) Expected: 07/06/2025 (Approximate), Expires: 01/04/2026documented as of this encounter Procedures Procedure NamePriorityDate/TimeAssociated DiagnosisCommentsPOCT URINALYSIS MFMBHEMHXmeuvgd14/29/2025 3:41 PM EST 38 weeks gestation of ([facility]) Third trimester ([facility]) documented in this encounter Results * (ABNORMAL) POCT urinalysis dipstick manually resulted (07/06/2025 3:41 PM EST) ComponentValueRef RangeTest MethodAnalysis TimePerformed AtPathologist SignatureColor, UAYellowClarity, UAClearGlucose, UANegativeNegative - 2000(110) ++++ mg/dLBilirubin, UANegativeNegative - 4(70) +++ mg/dLKetones, UA NegativeNegative - 160(16) ++++ mg/dLSpec Grav, UA1.0301 - 1.03Blood, UA NegativeNegative - 50 Dennis/mcLpH, UA6.05 - 9Protein, UAPositiveNegative - 2000(20) ++++ mg/dLUrobilinogen, UA1.00.2 - 12 mg/dLLeukocytes, UANegative Negative - 500+++ Wilman/mcLNitrite, UANegativeNegative - PositiveSpecimen (Source)Anatomical Location / LateralityCollection Method / VolumeCollection TimeReceived RindHkhig17/29/2025 3:41 PM EST Narrative Authorizing ProviderResult TypeResult StatusKemi Chaney [facility] OF CARE TEST ENTER/EDIT ORDERABLESFinal Result documented in this encounter Visit Diagnoses Diagnosis 38 weeks gestation of ([facility]) Third trimester ([facility]) state, incidental SGA (small for gestational age) ([facility]) Cdbzd-mzq-yhhfp without mention of malnutrition, unspecified (weight) induced hypertension, antepartum ([facility]) Transient hypertension of , antepartum Hypertension affecting in third trimester ([facility]) documented in this encounter
--- NOTE | 2025-07-08 08:03 | US_ITS ---
[place] [address] Patient Name: THAD MICHELE MRN: [id number] date: 1995 Sex: F Assigned Patient Location: [facility] Current Patient Location: LAB Accession/Order Number: [id number] Exam Date: 07/08/2025 08:05 Report Date: 07/08/2025 10:13 At the request of: SONI REGAN Procedure: US OB BPP w non-stress BIOPHYSICAL PROFILE: CLINICAL INFORMATION: Hypertension affecting COMPARISON: none There is a single live intrauterine gestation in cephalic presentation. The reported gestational age is 38 weeks 3 days. The heart rate measures 135 beats per minute. There is an aging, heterogeneous placenta. FINDINGS: TONE: 1 or more episodes of activity extension and flexion of extremity or opening and closing of the hand [Y] 2/2 GROSS BODY MOVEMENTS: 3 or more discrete body or limb movements [Y] 2/2 BREATHING MOVEMENTS: 1 or more episodes of breathing lasting at least 30 seconds [Y] 2/2 TATE: A single deepest vertical pocket of amniotic fluid greater than 2 cm [Y] 2/2 TATE: 10.4 cm Total score: 8/8 US/US OB BPP w non-stress IMPRESSION: NORMAL BIOPHYSICAL PROFILE Impression dictated by: Zhanna Mullen M.D. 07/08/2025 10:13 AM Dictation Location: [place] [address] Electronically authenticated by: [id number] Y Date: 07/08/2025 10:13
--- OUTSIDE RECORDS SUMMARY | 2025-07-08 08:04 | XMS_ITS | CCD ---
Author Organization [facility] Care Team Providers Care Purchasing Engineer Name Role Phone Ashley Mulligan Unavailable Unavailable Ashley Mulligan Unavailable Unavailable KEMI ROGERS~[phone] UNKNOWN Unavailable Un available MISC, DR DODD [...] TypeDate of OnsetReaction(s) Facility (1 source)PenicillinDrug AllergyThe [facility] (20 sources)Penicillin GDrug Cufeuvs80-08-8191VsyeqhkcqhqJNOI Healthcare Medications Current Medications MedicationDrug Class(es)DatesSig (Normalized)Sig (Original)magnesium oxide 400 mg oral tablet (4 sources)Start: 02-05-2025 End: 68-85-8806blcu 1 tablet by mouth once dailymagnesium oxide (Mag-Ox) 400 MG tablet Indications: Nonintractable headache, unspecified chronicitypattern, unspecified headache type Take 1 tablet (400 mg) by mouth Daily 30 tablet 6 02/05/2025 03/07/2025 Activenitrofurantoin, macrocrystals 25 mg / nitrofurantoin, monohydrate 75 mg oral capsule (2 sources)Nitrofuran AntibacterialStart: 01-12-2025 End: 74-16-9369srmz 1 capsule by mouth in the morningnitrofurantoin, macrocrystal-monohydrate, (Macrobid) 100 MG capsule Indications: Urinary tract infection without hematuria, site unspecified Take 1 capsule (100 mg) by mouth in the morning and 1 capsule (100 mg) before bedtime. Do all this for 7 days. 14 capsule 01/12/2025 01/19/2025 Activeondansetron 4 mg oral tablet (17 sources)Serotonin-3 Receptor AntagonistStart: 06-77-2013hivm 1 tablet by mouth every six hours [...] infections with a predominantly sexual mode of transmission]31-06-4789YdselpacBbaztsfnc disorders (1 source)Missed period; Translations: [Irregular menstruation, unspecified] 06-95-0534SnbykmjXdakyc and vomiting (2 sources)Nausea; Translations: [Nausea]11-58-2032RhiiraqbDbsfw complications of (2 sources) size does not accord with dates; Translations: [Uterine size- date discrepancy, third trimester]09-47-6992PoghuwdmUgzdr female genital disorders (2 sources)Vaginal discharge; Translations: [Other specified noninflammatory disorders of vagina]20-59-6786OjobckodXrxli and delivery including normal (14 sources); Translations: [Encounter for supervision of normal , unspecified, unspecified trimester]89-81-3254YlmsitxgQdfsb screening for suspected conditions (not mental disorders or infectious disease) (8 sources)Encounter for screening for malignant neoplasm of cervix; Translations: [Patient encounter status]Onset: 70-51-6550EpgkvygtTyvnuuoa codes; unclassified (2 sources)Gestation period, 13 weeks; Translations: [13 weeks gestation of ]79-12-3365TwhughvqXhhgnwsw codes; unclassified (2 sources)Gestation period, 17 weeks; Translations: [17 weeks gestation of ]06-28-1990ZwvdywflEsykglqs codes; unclassified (2 sources)Gestation period, 21 weeks; Translations: [21 weeks gestation of ]91-64-2049ApfogoduUdtghtpl codes; unclassified (2 sources)Gestation period, 25 weeks; Translations: [25 weeks gestation of ]17-01-6168IcxwyjtcLgttsehz codes; unclassified (2 sources)Gestation period, 28 weeks; Translations: [28 weeks gestation of ]38-38-7936WfotwwdcEkeellqz codes; unclassified (2 sources)Gestation period, 31 weeks; Translations: [31 weeks gestation of ]17-07-9943HfsrhqiwPxezrlo tract infections (2 sources)Urinary tract infectious disease; Translations: [Urinary tract infection, site not specified]84-28-6109Jfgagxxr Results Test NameValueInterpretationReference RangeFacilityUS OB FOLLOW UP TRANSABDOMINAL APPROACHon 56-41-6220AW OB FOLLOW UP TRANSABDOMINAL APPROACH FINDINGS: A [...] Delivery: 07/19/25 Gestational Age as of 04/30/2025: 83c7vCljkbltywt macro (dipstick) panel (U)on 09-49-0241Dwlnwykeq, UANegativeNegative - 4(70) +++ mg/dLNOMS HealthcareBlood, UAPositiveNegative [...] mg/dLNOMS HealthcareNOMS HealthcareUrinalysis macro (dipstick) panel (U)on 35-73-2147Wsfvxknez, UA NegativeNegative - 4(70) +++ mg/dLNOMS HealthcareBlood, UANegativeNegative - 50 Dennis/mcLNOMS HealthcareClarity, UACloudyNOMS HealthcareColor, UAYellowNOMS HealthcareGlucose, UANegativeNegative - 2000(110) ++++ mg/dLNOMS Healthcare Interpretation and review of laboratory resultsNormalNOMS HealthcareKetones, UA NegativeNegative - 160(16) ++++ mg/dLNOMS HealthcareLeukocytes, UANegative Negative - 500+++ Wilman/mcLNOMS HealthcareNitrite, UANegativeNegative - Positive NOM HealthcarepH, UA7.05 - 9NONJ HealthcareProtein, UANegativeNegative - 2000(20) ++++ mg/dLBEAVER VALLEY [facility]ITAL HealthcareSpec Grav, UA1.0151 - 1.03NOGeneral [facility] Urobilinogen, UA1.00.2 - 12 mg/dLFreeman Orthopaedics & Sports Medicine HealthcareALL CBC WITH AUTO DIFFon 20-66-0465KMEXSFPEI ABSOLUTE VWVB4LARW HealthcareBasophils/100 WBC (Bld) 0.5 %0.2 - 2.0 %[facility] HospitalEosinophils/100 WBC (Bld)1.4 %0.9 - 7.0 %[facility] HospitalErythrocyte distribution width (RBC) [Ratio]13.8 %11.0 - 15.0 %[facility] HospitalHematocrit (Bld) [Volume fraction]34 %Low36.0 - 48.0 %[facility] Hemoglobin (Bld) [Mass/Vol]11.6 g/dLLow12.0 - 16.0 g/dLSSM Health Cardinal Glennon Children's HospitalIMMATURE GRANULOCYTES ABS AUTO0.07HighSSM Health Cardinal [facility] Children's HospitalImmature granulocytes/100 WBC (Bld) 0.8 %High0.0 - 0.5 %[facility] HospitalInterpretation and review of laboratory resultsAbnormalSSM Health [facility] Children's HospitalLYMPHOCYTES ABSOLUTE AUTO1.6NOMS [facility] Lymphocytes/100 WBC (Bld)18.6 %Low20.5 - 60.0 %[facility] HospitalH (RBC) [Entitic mass]30.3 pg26.7 - 34.0 pgSaint John's HospitalHC (RBC) [Mass/Vol]34.1 g/dL29.9 - 35.2 g/dLSaint John's HospitalV (RBC) [Entitic vol]88.8 fL81.0 - 99.0 fLSSM Health Cardinal Glennon Children's HospitalMONOCYTES ABSOLUTE AUTO0.5NOGeneral [facility] Army Community HospitalMonocytes/100 WBC (Bld)5.7 % 1.7 - 12.0 %[facility] HospitalNEUTROPHILS ABSOLUTE AUTO6.2NOMS [facility] Neutrophils/100 WBC (Bld)73 %43.0 - 75.0 %[facility]'s HospitalPlatelet mean volume (Bld) [Entitic vol]9.8 fL9.5 - 13.5 fLNOMS HealthcareTBH EO #0.1NOMS Healthcare TBH NGR921RDHX HealthcareTBH RBC3.83LowNOMS HealthcareTBH WBC8.5NOMS Healthcare CLINISYNCNONJ HealthcareUrinalysis macro (dipstick) panel (U)on 04-09-2025 Bilirubin, UANegativeNegative - 4(70) +++ mg/dLNOMS HealthcareBlood, UANegative Negative - 50 Dennis/mcLNONJ HealthcareClarity, UACloudyNOMS HealthcareColor, UA YellowNOMS HealthcareGlucose, UANegativeNegative - 2000(110) ++++ mg/dLNONJ HealthcareInterpretation and review of laboratory resultsAbnormalNONJ Healthcare Ketones, UANegativeNegative - 160(16) ++++ mg/dLNONJ HealthcareLeukocytes, UA NegativeNegative - 500+++ Wilman/mcLNONJ HealthcareNitrite, UANegativeNegative - PositiveNONJ HealthcarepH, UA85 - 9NONJ HealthcareProtein, UAPositiveNegative - 2000(20) ++++ mg/dLNONJ HealthcareSpec Grav, UA1.011 - 1.03NONJ Healthcare Urobilinogen, UA1.00.2 - 12 mg/dLNOMid [facility] HealthcareRECURRENT VAGINITIS (HTRX)on 56-25-5378BCDHPXKZX ZTAZFQP8DCHD HealthcareATOPOBIUM VAGINAE Not detectedNONJ HealthcareBVAB 2,3 (BACTERIAL VAGINOSIS ASSOCIATED BACTERIA 2, 3); MOBILUNCUS KFQ7YYKG HealthcareBVAB 2,3 (BACTERIAL VAGINOSIS ASSOCIATED BACTERIA 2, 3); MOBILUNCUS SPPNot detectedNOMS HealthcareCANDIDA ALBICANS, PARAPSILOSIS, ZBLZQRSACX6WNZX HealthcareCANDIDA ALBICANS, PARAPSILOSIS, TROPICALISNot detectedNOMS HealthcareCANDIDA WEXWLALF3UJBK HealthcareCANDIDA GLABRATANot detectedNOMS HealthcareCANDIDA XYRJKA3GDBZ HealthcareCANDIDA KRUSEI Not detectedNOMS HealthcareCHLAMYDIA IFYPLNDSOFP5SVJC HealthcareCHLAMYDIA TRACHOMATISNot detectedNOMS HealthcareGARDNERELLA FXCCBDJXJ0AARI Healthcare GARDNERELLA VAGINALISNot detectedNOMS HealthcareMEGASPHAERA (TYPES 1, 2)0NOMS HealthcareMEGASPHAERA (TYPES 1, 2)Not detectedNOMS HealthcareMYCOPLASMA MNJDCVHHAE2OANS HealthcareMYCOPLASMA GENITALIUMNot detectedNOMS Healthcare NEISSERIA AUDHQXTBWIT1ZFXT HealthcareNEISSERIA GONORRHOEAENot detectedNOMS HealthcareTRICHOMONAS XWAWIXWJC1HBHY HealthcareTRICHOMONAS VAGINALISNot detected NOMS HealthcareNOMS HealthcareUS OB 14+ WEEKS ANATOMY SCANon 59-34-9491JP OB 14+ WEEKS ANATOMY SCANFINDINGS: Comparison December [...] Delivery: 07/19/25 Gestational Age as of 02/11/2025: 68o4yQczbnpxckh macro (dipstick) panel (U)on 70-49-4894Nucupfwsi, UANegativeNegative - 4(70) +++ mg/dLNOMS HealthcareBlood, UANegativeNegative - 50 Dennis/mcLNOMS HealthcareClarity, UAClearNOMS Healthcare Color, UAYellowNOMS HealthcareGlucose, UANegativeNegative - 2000(110) ++++ mg/dL NOMS HealthcareInterpretation and review of laboratory resultsNormalNOMS HealthcareKetones, UANegativeNegative - 160(16) ++++ mg/dLNONJ Healthcare Leukocytes, UANegativeNegative - 500+++ Wilman/mcLNOMS HealthcareNitrite, UA NegativeNegative - PositiveNOMS HealthcarepH, UA65 - 9NOMS HealthcareProtein, UA NegativeNegative - 2000(20) ++++ mg/dLNOMS HealthcareSpec Grav, UA1.011 - 1.03 NOMS HealthcareUrobilinogen, UA1.00.2 - 12 mg/dLNOMS HealthcareNOMS Healthcare Urinalysis macro (dipstick) panel (U)on 40-50-8503Coqmovxrp, UANegativeNegative - 4(70) +++ mg/dLNOMS HealthcareBlood, UANegativeNegative - 50 Dennis/mcLNONJ HealthcareClarity, UAClearNOMS HealthcareColor, UAYellowNONJ HealthcareGlucose, UANegativeNegative - 2000(110) ++++ mg/dLNONJ HealthcareInterpretation and review of laboratory resultsAbnormalNOMS HealthcareKetones, UANegativeNegative - 160(16) ++++ mg/dLNONJ HealthcareLeukocytes, UANegativeNegative - 500+++ Wilman/mcL NOMS HealthcareNitrite, UANegativeNegative - PositiveNOMS HealthcarepH, UA6.55 - 9NOMS HealthcareProtein, UATraceNegative - 2000(20) ++++ mg/dLNONJ Healthcare Spec Grav, UA1.011 - 1.03NONJ HealthcareUrobilinogen, UA0.20.2 - 12 mg/dLNOMS HealthcareNOMS HealthcareALL CBC WITH AUTO DIFFon 24-72-6852WWYJRLRGB ABSOLUTE SXLI8JCKD HealthcareBasophils/100 WBC (Bld)0.5 %0.2 - 2.0 %[facility] Eosinophils/100 WBC (Bld)1.6 %0.9 - 7.0 %NOMS HealthcareErythrocyte distribution width (RBC) [Ratio]12.9 %11.0 - 15.0 %NOMS HealthcareHematocrit (Bld) [Volume fraction]34.9 %Low36.0 - 48.0 %NOMS HealthcareHemoglobin (Bld) [Mass/Vol]12.1 g/dL12.0 - 16.0 g/dLSSM Health Cardinal Glennon Children's HospitalIMMATURE GRANULOCYTES ABS AUTO0.02NOGeneral Leonard [facility] Army Community HospitalImmature granulocytes/100 WBC (Bld)0.2 %0.0 - 0.5 %[facility] Interpretation and review of laboratory resultsAbnoHoly Redeemer Hospital LYMPHOCYTES ABSOLUTE QQYL4EWQVGeneral Leonard Wood Army Community HospitalLymphocytes/100 WBC (Bld)22.1 %20.5 - 60.0 %[facility] HospitalH (RBC) [Entitic mass]30.5 pg26.7 - 34.0 pgSaint John's HospitalHC (RBC) [Mass/Vol]34.7 g/dL29.9 - 35.2 g/dLSaint John's HospitalV (RBC) [Entitic vol]87.9 fL81.0 - 99.0 fLSSM Health Cardinal Glennon Children's HospitalMONOCYTES ABSOLUTE AUTO0.5NOGeneral Leonard Wood Army Community HospitalMonocytes/100 WBC (Bld)5.3 %1.7 - 12.0 %[facility]'s HospitalNEUTROPHILS ABSOLUTE AUTO6.2NOMS [facility] WestNeutrophils/100 WBC (Bld)70.3 %43.0 - 75.0 %[facility]'s HospitalPlatelet mean volume (Bld) [Entitic vol]9.5 fL9.5 - 13.5 fLSSM Health Cardinal Glennon Children's HospitalTB EO #0.1NOMS [facility] WestTB JHA094VSCKLakeland Regional Hospital RBC3.97LowNOLakeland Regional Hospital WBC8.8NOGeneral Leonard [facility] Community HospitalCLINISYNCNLafayette Regional Health CenterHCG ( test) Ql (U)on 68-20-9991Nfbyztnmhhzbja and review of laboratory resultsAbnoHoly Redeemer HospitalPreg Test, UrPositiveNegativeFreeman Orthopaedics & Sports Medicine HealthcareUS OB TRANSVAGINALon 27-36-1304MA OB TRANSVAGINALEXAM: US OB TRANSVAGINAL HISTORY: Dating. [...] II, MD, PHD at 12-Dec-2024 08:26:33 AM [facility] TeleradiologyNormalNot AvailableComment on above:Order Comment: US OB TRANSVAGINAL No LMP recorded.Urinalysis macro (dipstick) panel (U)on 23-64-1008Ytgoosmvw, UA NegativeNegative - 4(70) +++ mg/dLNOMS HealthcareBlood, [...] - 12 mg/dLNOMS HealthcareNOMS HealthcareIGP,APTIMA HPV,AGE GDLNon 80-81-3542ZFQ GDLN ACOG TESTINGNote.NOMS HealthcareComment on above:TESTS RESULT FLAG UNITS REF RANGE LAB Clinician Provided Cytology Information Source.............Cervix;Endocervix No. of containers..01 ThinPrep Vial Francesco Colon... FLAG LEGEND: L-Low Normal,H-High Normal,LL-Alert Low,HH-Alert High <-Panic Low,>-Panic High,A-Abnormal,AA-Critical Abnormal Performed at: 01 =G [facility] [address] Aga Cade MD, IGP, RFX APTIMA HPV ASCUNote.[facility]'s HospitalComment on above:TESTS RESULT FLAG UNITS REF RANGE LAB DIAGNOSIS: 02 NEGATIVE FOR INTRAEPITHELIAL LESION OR MALIGNANCY. Specimen adequacy: 02 Satisfactory for evaluation. Endocervical and/or squamous metaplastic cells (endocervical component) are present. Performed by: 02 Genesis Dunn, Real Estate Appraiser Supervisor ([facility]) . 02 Note: Note 03 The Pap [...] Low,>-Panic High,A-Abnormal,AA-Critical Abnormal Performed at: 02 K[facility]YT [facility] [address] [place] [address] Pa Schilling MD, [address] [facility] [address] Aga Cade MD, Performed at: =G - [facility] [address] [id number] Logistics Team Lead: Aga Cade MD, Phone: [phone] Performed at: [facility] [address] [place], [place] [id number] Logistics Team Lead: Pa Schilling MD, Phone: [phone] BRUSH-SPATULA CERVIX ENDOCERVIX CLINISYSaint Thomas Rutherford HospitalCytology Cervical or vaginal smear or scraping study Ordered By: Winifred Bhatia on 43-89-7852VQEYUniversity of Missouri Children's Hospital ACOG PANEL 2: 21 to 29on 08-28-2022..NormalThe [facility] HospitalComment on above:Result Comment: Performed at: WBPerformed By: #### [id number] #### [facility] [address] [place] [address] Dr. Randee Renee Gdln ACOG Meydhje05-09RjfmljLzbWright-Patterson Medical CenterComment on above:Performed By: #### [id number] #### [facility] [address] [place] [address] Dr. Randee CodyDIAGNOSIS:CommentSouthview Medical Center on above: Result Comment: NEGATIVE FOR INTRAEPITHELIAL LESION OR MALIGNANCY. THIS SPECIMEN WAS RESCREENED PART OF OUR MANAGER GAMES PROGRAM. Performed at: WBPerformed By: #### [id number] #### [facility] [address] [place] [address] Dr. Randee CodyMethodology:CommentSouthview Medical Center on above: Result Comment: This liquid based ThinPrep(R) pap test was screened with the use of an image guided system. Performed at: WBPerformed By: #### [id number] #### [place] [address] [address] Randee CodyNote:CommentSouthview Medical Center on above:Result Comment: The Pap smear is a screening test designed to aid in the detection of premalignant and malignant conditions of the uterine cervix. It is not a diagnostic procedure and should not be used as the sole means of detecting cervical cancer. Both false-positive and false-negative reports do occur. . Performed at: WBPerformed By: #### [id number] #### [facility] [address] [place] [address] Dr. Randee CodyPerformed by:CommentSouthview Medical Center on above: Result Comment: Raya Humphries, Real Estate Appraiser Supervisor (ASCP) Performed at: KWCYTPerformed By: #### [id number] #### [facility] [address] [place] [address] Dr. Randee CodyQC reviewed by:KalpanaSouthview Medical Center on above:Result Comment: Fernanda Mena, Supervisory Real Estate Appraiser Supervisor (ASCP) Performed at: WBPerformed By: #### [id number] #### [facility] [address] [place] [address] Dr. Randee CodyReflex Criteria:[facility] on above:Result Comment: The HPV DNA reflex criteria were not met with this specimen result therefore, no HPV testing was performed. . Performed at: WBPerformed By: #### [id number] #### [facility] [address] [place], [place] [address] Dr. Randee CodySpecimen adequacy:CommentNoWright-Patterson Medical CenterComment on above:Result Comment: Satisfactory for evaluation. Endocervical and/or squamous metaplastic cells (endocervical component) are present. Performed at: WBPerformed By: #### [id number] #### [facility] [address] [place], [place] [address] Dr. Randee Cody Vital Signs Date TimeVital SignValuePerforming DnwthvukfSyblslyj59-83-5503 10:32-0500Body mass index (BMI) [Ratio]38.44 kg/k0Hgkyj Suhail DO Work Phone: [phone])[facility] [place] [address]-10-2025 10:32-0500Body jmiems385.78 kgCorey Suhail DO Work Phone: [phone])[facility] [place], [place] [address]Hdcnclulpd48-20-6184 10:32-0500Diastolic blood mm[Hg]Mana Suhail DO Work Phone: [phone])[facility] [place], [place] [address]Decjdjulkt67-71-9585 10:32-0500Systolic blood kvidqitj101 mm[Hg]Mana Suhail DO Work Phone: [phone])[facility] [place], [place] [address]Ajqiorcvxd29-30-7039 09:02-0400Body mass index (BMI) [Ratio]37.96 kg/m2Amy Ritu MADDOX Work Phone: [phone])[facility] [place], [place] [address]Wwjqdaxctc40-50-6622 09:02-0400Body .47 kgKemi MADDOX Work Phone: [phone])[facility] [place], [place] [address]Zdpfippeiq28-00-2216 09:02-0400Diastolic blood ujuyphad33 mm[Hg]Kemi MADDOX Work Phone: [phone] [place], [place] [address]Jpojqsylbu27-09-7158 09:02-0400Systolic blood mm[Hg]Kemi MADDOX Work Phone: [phone] [place], [place] [address]-02-2025 08:57-0400Body mass index (BMI) [Ratio]37.13 kg/e4QtxhzspsLe Thompson NP Work Phone: [phone])[facility] [place], [place] [address]Lnovmjltjb87-97-8661 08:57-0400Body gduuuo291.21 kgThomaslinda Jay LIBRARY CLERK TALKING BOOKS Work Phone: [facility]'s HospitalQslmvkylhu08-98-9864 08:57-0400Diastolic blood kfvcangw63 mm[Hg]Le Jay LIBRARY CLERK TALKING BOOKS Work Phone: [facility]'s HospitalNmjadubywy56-24-0484 08:57-0400Systolic blood ixjwtndl872 mm[Hg]Le Jay LIBRARY CLERK TALKING BOOKS Work Phone: [phone] [place], [place] [address]Btxauslzup13-02-5348 09:46-0400Body mass index (BMI) [Ratio]36.41 kg/m2Amy Ritu MADDOX Work Phone: [phone] [place], [place] [address]Wqovjkncsa38-74-5066 09:46-0400Body zkchyy45.25 kgKemi MADDOX Work Phone: [facility]'s HospitalVnleuuxhko69-42-6983 09:46-0400Diastolic blood uydvjbjy35 mm[Hg]Kemi MADDOX Work Phone: [phone] [place], [place] [address]Jxuzavglxx58-10-1442 09:46-0400Systolic blood vwnktucg223 mm[Hg]Kemi MADDOX Work Phone: [phone]-[facility]'s HospitalKpabxfyoza47-76-2202 14:04-0400Body mass index (BMI) [Ratio]35.3 kg/c1Reafy Suhail DO Work Phone: [facility]'s HospitalXdbrkikxpu64-76-3430 14:04-0400Body vuldns64.22 kgCorey Suhail DO Work Phone: [phone] [place], [place] [address]Tshwognoud25-21-8370 14:04-0400Diastolic blood mm[Hg]Mana Suhail DO Work Phone: [phone]-[facility]'s HospitalYpwxvtlxzi85-30-4624 14:04-0400Systolic blood waijorhp800 mm[Hg]Mana Suhail DO Work Phone: [phone]-[facility]'s HospitalDyhfnwjucy74-74-8311 09:44-0400Body mass index (BMI) [Ratio]34.11 kg/z5Raecd Suhail DO Work Phone: [phone] [place], [place] [address]Yfghaltiuu21-16-2530 09:44-0400Body .99 kgCorey Suhail DO Work Phone: [facility] HospitalXjeunvepuw03-43-6254 09:44-0400Diastolic blood mm[Hg]Mana Suhail DO Work Phone: NOGeneral [facility] HospitalRrljaivpzj76-24-7271 09:44-0400Systolic blood mm[Hg]Mana Suhail DO Work Phone: [facility] HospitalCxeutzhkbi48-72-1147 14:50-0400Body mass index (BMI) [Ratio]34.11 kg/m2[facility]06-05-2025 14:50-0400Body bdxxcu31.99 kgNorth [facility]02-24-2025 14:11-0500Body mass index (BMI) [Ratio]35.41 kg/x9Tbvvm Suhail DO Work Phone: [facility]'s HospitalUbpywnrubx47-47-8387 14:11-0500Body qladeh78.53 kgCorey Suhail DO Work Phone: [facility]'s HospitalBuikmhhsmm53-99-0712 14:11-0500Diastolic blood nnkkevrp00 mm[Hg]Mana Suhail DO Work Phone: [facility]'s HospitalEkiojxqhbb84-16-1622 14:11-0500Systolic blood xzyjvrre674 mm[Hg]Mana Suhail DO Work Phone: [facility] Healthcare Encounters Encounter DateEncounter TypeCare ProviderFacilityStart: 05-18-2025 End: 60-94-1193Vqtfufbp flow sheetCorey Suhail DO Work Phone: NONJ [place] OBGYNComment on above:Third trimester ([facility]); 31 weeks gestation of ([facility])Start: 05-18-2025 End: 03-09-6901xlzzwbltkwHOIXT FAZIONot AvailableStart: 04-30-2025 End: 53-43-4290Brhkze flowsheetAmy Ritu MADDOX Work Phone: NONJ [place] OBGYNStart: 04-30-2025 End: 07-35-8904Jriwml flowsGina MADDOX Work Phone: [facility] Franny OBGYNStart: 04-30-2025 End: 25-37-8094Tojlaldj flow sheetKemi Regan PA Work Phone: N[facility] [place] OBGYNComment on above:28 weeks gestation of ([facility]); Third trimester ([facility]); Size of fetus inconsistent with dates in third trimester ([facility])Start: 04-30-2025 End: 72-04-0663iuenrjewkpHJN Ambrosio AvailableStart: 04-13-2025 End: 21-05-1840Alybrwchd Result EncounterKristina Jay LIBRARY CLERK TALKING BOOKS Work Phone: NOMS External Department UnsolicitedStart: 04-13-2025 End: 19-19-3311Syxwdxhyg Result EncounterKristina Jay LIBRARY CLERK TALKING [employer]OOKS Work Phone: [facility] External Department UnsolicitedStart: 04-09-2025 End: 01-56-0015Zvbuhb flowsheetKristina Jay LIBRARY CLERK TALKING BOOKS Work Phone: [facility] [place] OBGYNStart: 04-09-2025 End: 02-04-2314Gmvwvf flowsheetKristina Jay LIBRARY CLERK TALKING BOOKS Work Phone: [facility] OBGYNStart: 04-09-2025 End: 28-26-9134Rgcabsau flow sheetKristina Jay LIBRARY CLERK TALKING BOOKS Work Phone: N[facility]S Franny OBGYNComment on above:25 weeks gestation of ([facility]); Second trimester ([facility]); Diabetes mellitus screeningStart: 04-09-2025 End: 76-51-0252ohyjexhodxLYWPQTAU EBERLYNot AvailableStart: 03-11-2025 End: 12-69-9330Uqjjzowy flow sheetKemi MADDOX Work Phone: [facility] [place] OBGYNComment on above:Second trimester ([facility]); 21 weeks gestation of ([facility])Start: 03-11-2025 End: 61-89-6723zhrvmzexbnDMT RAMEYNot AvailableStart: 02-11-2025 End: 44-28-6849Lmvjra flowsheetCorey Suhail DO Work Phone: NOIU [facility]anny OBGYNStart: 02-11-2025 End: 27-34-6437Wtbtgu flowsheetCorey Suhail DO Work Phone: [facility] OBGYNStart: 02-11-2025 End: 58-56-9616Luojppcd Result EncounterCorey Suhail DO Work Phone: [facility] External Department UnsolicitedStart: 02-11-2025 End: 89-99-4940Kbstwhdm flow sheetCorey Suhail DO Work Phone: NOEI [place] OBGYNComment on above:17 weeks gestation of ([facility]); Second trimester ([facility]); Screening, , for anatomic survey ([facility]); Exposure to STD; Vaginal dischargeStart: 02-11-2025 End: 73-53-3938cfljemghiaYXOMZ FAZIONot AvailableStart: 01-12-2025 End: 98-66-0747Hmmnmi flowsheetCorey Suhail DO Work Phone: [facility] BCP OBStart: 01-12-2025 End: 66-02-4210Oiqfch flowsheetCorey Suhail DO Work Phone: [facility] BCP OBStart: 01-12-2025 End: 53-34-3293Wuhllixj flow sheetCorey Suhail DO Work Phone: [facility] BCP OBComment on above:Urinary tract infection without hematuria, site unspecified (Primary Dx); 13 weeks gestation of ([facility]); Second trimester ([facility] [facility] NauseaStart: 01-12-2025 End: 91-26-8219jpknjevrbiUZWKH FAZIONot AvailableStart: 12-29-2024 End: 62-99-5321Fqucqlkld Result EncounterCorey Suhail DO Work Phone: noMS External Department UnsolicitedStart: 12-29-2024 End: 91-27-4135Wugaaqxpz Result EncounterCorey Suhail DO Work Phone: noMS External Department UnsolicitedStart: 12-11-2024 End: 12-20-2589Rytgfi outpatient visit 5 minutesNoms Bcp Ob Suhail NurseNOMS BCP OBComment on above:GA: 8a5iZatpo: 12-11-2024 End: 81-58-1132gipjvzhojqATIMM FAZIONot AvailableStart: 09-01-2024 End: 90-40-5157Osywjb flowsheetCorey Suhail DO Work Phone: noms BCP OBStart: 09-01-2024 End: 67-65-3161Hlygvh flowsheetCorey Suhail DO Work Phone: noms BCP OBStart: 09-01-2024 End: 00-88-1816Wgltkkgsy Result EncounterCorey Suhail DO Work Phone: noms External Department UnsolicitedStart: 09-01-2024 End: 98-14-2202Fnnqpux encounter procedureCorey Suhail DO Work Phone: [facility] Work Phone: Start: 09-01-2024 End: 27-30-1898Zorlqohg preventive med est patient 18-39 yrsCorey Suhail DO Work Phone: noms BCP OBComment on above:Well woman exam with routine gynecological examStart: 09-01-2024 End: 57-17-5302twcmvusowyAIGVV FAZIONot AvailableStart: 08-21-2022 End: 85-57-6031wgmtiaqwzpEF DOCTOR MISCFacility:G8Yjtee: 01-04-2018 End: 45-39-2799TyrtigmwpsMtgwck J LampeFacility:[facility] Procedures DateProcedureProcedure DetailPerforming ClinicianStart: 44-66-5204Kjcgv dip stick/tablet rgnt non-auto w/o micrscpCorey Suhail DO Work Phone: Start: 18-39-9320Xqpoz dip stick/tablet rgnt non-auto w/o micrscpAmy Ritu PA Work Phone: Start: 70-28-8138YCS CBC WITH AUTO DIFFKristina Jay LIBRARY CLERK [employer]ING [employer]OOKS Work Phone: Start: 43-12-3955Hioek dip stick/tablet rgnt non-auto w/o micrscpKristina Jay LIBRARY CLERK [employer]ING [employer] Work Phone: Start: 43-04-7802IWDPUGTSS VAGINITIS (HTRX)Mana Suhail DO Work Phone: Start: 50-34-4139Ecyji dip stick/tablet rgnt non-auto w/o micrscpCorey Suhail DO Work Phone: Start: 56-06-8157Iqtnj dip stick/tablet rgnt non-auto w/o micrscpCorey Suhail DO Work Phone: Start: 89-23-1012JQV CBC WITH AUTO DIFFCorey Suhail DO Work Phone: Start: 12-11-2024 End: 94-36-5804Rjpqm dip stick/tablet rgnt non-auto w/o micrscpCorey Suhail DO Work Phone: Start: 88-12-2316EEZ,APTIMA HPV,AGE GDLNCorey Suhail DO Work Phone: Start: 48-21-9640Aqgp cerv/vag auto thin layer prep mnl screenCorey Suhail DO Work Phone: Plan of Treatment DateCare ActivityDetailAuthorStart: 09-07-2025 End: 54-42-4196Mwnekjm encounter procedureNOMS BCP OBStart: 06-01-2025 End: 23-51-5279Ojxtrgr encounter sirwkxdwj00/24/2025 10:50 AM EST Routine [facility] [address] [place] [address] [place] [address] Kemi Regan PA [address] [facility] [place] [address] NOMVi [place] OBGYNStart: 05-18-2025 End: 82-81-9839Topebvr encounter qyhhdngfa66/10/2025 10:40 AM EST Routine [facility] [address] [facility] [place] [phone] Mana Jang DO [address] [facility] [place] [address] N[facility] Franny OBGYNStart: 05-18-2025 End: 26-04-9544Hnlmnbfymqsa / ancillary services xfuonbpirv25/10/2025 10:00 AM EST Ancillary Procedure [facility] [address] [facility] [place] [address] NOMS Franny OBGYNStart: 04-30-2025 End: 79-41-4465VE for pregnancyUS OB follow up transabdominal approach Imaging Routine 28 weeks gestation of ([facility]) Size of fetus inconsistent with dates in third trimester ([facility]) Expected: 04/30/2025, Expires: 08/10[facility] Work Phone: comment on above:Expected: 04/30/2025, Expires: 08/31/2025Start: 04-30-2025 End: 13-58-0411Rmjaktb encounter procedureNOMS Franny OBGYNComment on above: ArrivedStart: 04-09-2025 End: 38-79-7758LII panel - Blood by Automated countCBC Lab Routine Diabetes mellitus screening Expected: 04/09/2025 (Approximate), Expires: 04/09/2026[facility] Work Phone: comment on above:Expected: 04/09/2025 (Approximate), Expires: 04/09/2026Start: 04-09-2025 End: 64-07-1505Vrlacnmovzq of glucose 1 hour after glucose challenge for glucose tolerance testGlucose tolerance, 1 hour Lab Routine Diabetes mellitus screening Expected: 04/09/2025 (Approximate), Expires: 04/09/2026[facility] HealthcareComment on above:Expected: 04/09/2025 (Approximate), Expires: 04/09/2026Start: 04-09-2025 End: 44-75-8672Wqpnjdz encounter procedureNOMS Franny OBGYNComment on above: ArrivedStart: 03-11-2025 End: 29-52-1741Amymjzi encounter qoyyxhagw37/03/2025 9:50 AM EDT Routine [facility] RODRIGUEZ [address] [facility] [address] [place], [id number] Kemi Regan PA [address] [facility] [place] [address] N[facility] Franny OBGYNStart: 03-11-2025 End: 09-03-8742Gggwsxyowkhf / ancillary services obyewmpybf13/03/2025 8:30 AM EDT Ancillary Procedure [facility] GRAFN [address] [facility] [place] [phone] N[facility]S Franny OBGYNStart: 02-11-2025 End: 48-18-7128Edwao fetoprotein, maternalAlpha fetoprotein, maternal Lab Routine 17 weeks gestation of ([facility]) Second trimester ([facility]) Expected: 02/11/2025 (Approximate), Expires: 03/14/2025[facility] Comment on above:Expected: 02/11/2025 (Approximate), Expires: 03/14/2025Start: 02-11-2025 End: 84-30-6922GU for pregnancyUS OB 14+ weeks anatomy scan Imaging Routine Screening, , for anatomic survey ([facility]) Expected: 02/11/2025, Expires: 05/14/2025[facility] HealthcareComment on above:Expected: 02/11/2025, Expires: 05/14/2025Start: 02-11-2025 End: 43-45-3848Oefpzmc encounter cvecgtslk62/06/2025 1:50 PM EDT Routine [facility] [address] [phone] Mana Jang, DO [address] [facility] [place] [address] ArrivedNOMS Franny OBGYNComment on above:ArrivedStart: 01-12-2025 End: 63-88-7119Sjxreas encounter procedureNOMS BCP OBComment on above:Arrived Start: 12-11-2024 End: 96-61-0658WPK/RhABO/Rh Lab Routine Missed menses , unspecified gestational age Expected: 12/11/2024 (Approximate), Expires: 12/11/2025N[facility]S HealthcareComment on above:Expected: 12/11/2024 (Approximate), Expires: 12/11/2025Start: 12-11-2024 End: 03-40-5156Btfwk type and Indirect antibody screen panel - BloodType and screen Lab Routine Missed menses , unspecified gestational age Expected: 12/11/2024 (Approximate), Expires: 12/11/2025[facility] Work Phone: comment on above:Expected: 12/11/2024 (Approximate), Expires: 12/11/2025Start: 12-11-2024 End: 87-94-5250Ludaz of abuse panel - Urine by Screen methodRapid drug screen, urine Lab Routine , unspecified gestational age Encounter for supervision of normal first in first trimester Expected: 12/11/2024 (Approximate), Expires: 12/11/2025[facility] HealthcareComment on above:Expected: 12/11/2024 (Approximate), Expires: 12/11/2025Start: 09-01-2024 End: 88-89-5968Tbnludx encounter jqvasudaa26/24/2025 2:00 PM EST Office Visit [facility] [address] [place] [phone] Mana Jang, DO [address] [place] [address] [facility] OBComment on above:ArrivedStart: 15-35-1946Mhhsjleha vaccinationInfluenza Vaccine (#1)N[facility] HealthcareBacteria identified in Urine by CultureUrine culture Microbiology Routine Missed menses Ordered: 12/11/2024[facility] HealthcareComment on above:Ordered: 12/11/2024BC W Auto Differential panel - BloodCBC and differential Lab Routine Missed menses , unspecified gestational age Ordered: 12/11/2024[facility] HealthcareComment on above:Ordered: 12/11/2024HLAMYDIA TRACHOMATIS (GENITO/STI)CHLAMYDIA TRACHOMATIS (GENITO/STI) Lab Routine Exposure to STD Ordered: 02/11/2025[facility] HealthcareComment on above:Ordered: 02/11/2025ytology Cervical or vaginal smear or scraping studyPap Smear Pathology and Cytology Routine Well woman exam with routine gynecological exam Ordered: 09/01/2024[facility] Work Phone: comment on above:Ordered: 09/01/2024Hemoglobin A1c/Hemoglobin.total in BloodHemoglobin A1c Lab Routine Missed menses , unspecified gestational age Ordered: 12/11/2024[facility] HealthcareComment on above: Ordered: 12/11/2024Hepatitis B virus surface Ag [Presence] in Serum or Plasma by ImmunoassayHepatitis B surface antigen Lab Routine Missed menses , unspecified gestational age Ordered: 12/11/2024[facility] HealthcareComment on above: Ordered: 12/11/2024Hepatitis C virus Ab [Presence] in Serum or Plasma by ImmunoassayHepatitis C antibody Lab Routine Missed menses , unspecified gestational age Ordered: 12/11/2024[facility] HealthcareComment on above:Ordered: 12/11/2024HIV-1/HIV-2 antigen/antibody combination immunoassayHIV-1 and HIV-2 antibodies Lab Routine Missed menses , unspecified gestational age Ordered: 12/11/2024[facility] HealthcareComment on above:Ordered: 12/11/2024Neisseria gonorrhoeae DNA [Presence] in Unspecified specimen by SHAE with probe detection Neisseria gonorrhea DNA probe, direct Lab Routine Exposure to STD Ordered: 02/11/2025[facility] HealthcareComment on above:Ordered: 02/11/2025Reagin Ab [Presence] in Serum by RPRRPR Lab Routine Missed menses , unspecified gestational age Ordered: 12/11/2024[facility] HealthcareComment on above:Ordered: 12/11/2024Rubella antibody, IgGRubella antibody, IgG Lab Routine Missed menses , unspecified gestational age Ordered: 12/11/2024[facility] HealthcareComment on above:Ordered: 12/11/2024SURESWAB(R) ADVANCED VAGINITIS PLUS, TMASURESWAB(R) ADVANCED VAGINITIS PLUS, TMA Pathology and Cytology Routine Vaginal discharge Ordered: 02/11/2025[facility] [place] Work Phone: comment on above:Ordered: 02/11/2025 Payers DatePayer CategoryPayerPolicy [id number] [id number] [id number] 2.840.1.895948.3.579.2.593 [id number] 2.840.1.045317.3.579.2.657256-80-6680Pnpwvmm [id number] 2.840.1.402936.3.57[id number] 2.16.840.1.311428.3.57[id number] 2.16.840.1.128616.3.57[id number] 2.16.840.1.339144.3.57[id number] 2.16.840.1.334973.3.57[id number] 2.16.840.1.897031.3.57[id number] 2.16.840.1.967293.3.57[id number] 2.16.840.1.993066.3.57[id number] 2.16.840.1.234732.3.57[id number] 2.16.840.1.139330.3.57[id number] 2.16.840.1.139476.3.579.2.05841-46-1990Necu-[id number] Social History DateTypeDetailFacilityStart: 94-34-3231Smzhwhy smoking status NHISNever smoked tobaccoNOMS HealthcareStart: 33-36-9507Sssxdtt use and exposureSmokeless tobacco non-userNOMS HealthcareStart: 01-01-2024 End: 23-89-4738Auzscuxvp beverage intakeCurrent drinker of alcohol (finding)[facility] HealthcareStart: 01-01-2024 End: 81-08-7356Sgwnyym of Social functionNOMS HealthcareStart: 01-01-2024 End: 38-03-4311Eggukdu use panelNOMS HealthcareStart: 96-18-7225Baczzfj Comment OccasionalSSM Health [facility]on Children's HospitalStart: 44-45-0899Ymx assigned at birthNot on fileSSM Health Cardinal Glennon Children's HospitalStart: 57-91-2942YmsjtgzhlKELW HealthcareStart: 99-63-4246ZriPlnlnc [facility] Clinical Notes 09-01-2024 to 05-18-2025 Note Date & IxqeUywhNjkltdff46-16-2571 History of Present illness Narrative* Angelina Plunkett, [...] nursing note reviewed. Exam conducted with a electronic test technician present. Vitals: Estimated body mass index is 38.44 kg/m as calculated from the following: Height as of 08/21/22: 5' 5 . Weight as of this encounter: 231 lb. BP: 112/62 Patient's last menstrual period was 10/12/2024. Assessment/Plan ICD-10-CM 1. Third trimester ([facility]) Z34.93 2. 31 weeks gestation of ([facility]) Z3A.31 POCT urinalysis dipstick manually resulted Patient presents today for a routine obstetrics appointment. Patient is currently 31w1d with a Estimated Date of Delivery: 07/19/25. Patient to return to clinic in 2 weeks. Patient had growthscan prior to appointment. Documented by Angelina Plunkett LPN on behalf of: Mana Jang DO documented in this encounterSSM Health Cardinal Glennon Children's HospitalNjojgmflsj27-82-8074 History of Present illness Narrative* TAN Edward [...] Assessment/Plan ICD-10-CM 1. 28 weeks gestation of ([facility]) Z3A.28 POCT urinalysis dipstick manually resulted 2. Third trimester ([facility]) Z34.93 POCT urinalysis dipstick manually resulted [...] behalf of: TAN Edward documented in this encounterSSM Health Cardinal Glennon Children's HospitalPinmyyzobc79-62-6721 History of Present illness Narrative* Le Thompson [...] nursing note reviewed. Exam conducted with a electronic test technician present. Vitals: Estimated body mass index is 37.13 kg/m as calculated from the following: Height as of 08/21/22: 5' 5 . Weight as of this encounter: 223 lb 1.9 oz. BP: 130/78 Patient's last menstrual period was 10/12/2024. ASSESSMENT & PLAN ICD-10-CM 1. 25 weeks gestation of ([facility]) Z3A.25 POCT urinalysis dipstick manually resulted 2. Second trimester ([facility]) Z34.92 POCT urinalysis dipstick manually resulted [...] of: Le Thompson NP documented in this encounterSSM Health Cardinal Glennon Children's HospitalRxooriwlzn51-95-8779 History of Present illness Narrative* TAN Edward [...] ASSESSMENT & PLAN ICD-10-CM 1. Second trimester ([facility]) Z34.92 Urine dip 2. 21 weeks gestation of ([facility]) Z3A.21 Urine dip Return OB: Patient [...] behalf of: TAN Edward documented in this encounterSSM Health Cardinal Glennon Children's HospitalYefbyeasub16-61-9500 History of Present illness Narrative* Zhanna Gunter, [...] nursing note reviewed. Exam conducted with a electronic test technician present. Vitals: Estimated body mass index is 35.3 kg/m as calculated from the following: Height as of 08/21/22: 5' 5 . Weight as of this encounter: 212 lb 1.9 oz. BP: 124/72 Patient's last menstrual period was 10/12/2024. ASSESSMENT & PLAN ICD-10-CM 1. 17 weeks gestation of ([facility]) Z3A.17 POCT urinalysis dipstick manually resulted Alpha fetoprotein, maternal Alpha fetoprotein, maternal 2. Second trimester ([facility]) Z34.92 POCT urinalysis dipstick manually resulted Alpha fetoprotein, maternal Alpha fetoprotein, maternal 3. Screening, , for anatomic survey ([facility]) Z36.89 US OB 14+ weeks anatomy scan US OB 14+ weeks anatomy scan 4. Exposure to STD Z20.2 CHLAMYDIA TRACHOMATIS (GENITO/STI) Neisseria gonorrhea DNA probe, direct 5. Vaginal discharge N89.8 SURESWAB(R) ADVANCED VAGINITIS PLUS, TMA Return OB/Annual Exam: Patient presents today for a annual exam/routine obstetrics appointment. Patient is currently 49h7hzricudtk. Patient states she is doing well but [...] of: Mana Jang DO documented in this encounterSSM Health Cardinal Glennon Children's HospitalJkoyhajjcg02-09-8815 History of Present illness Narrative* Le Thompson [...] nursing note reviewed. Exam conducted with a electronic test technician present. Vitals: Estimated body mass index is 34.11 kg/m as calculated from the following: Height as of 08/21/22: 5' 5 . Weight as of this encounter: 205 lb. BP: 120/72 Patient's last menstrual period was 10/12/2024. ASSESSMENT & PLAN ICD-10-CM 1. Urinary tract infection without hematuria, site unspecified N39.0 2. 13 weeks gestation of ([facility]) Z3A.13 POCT urinalysis dipstick manually resulted 3. Second trimester ([facility]) Z34.92 POCT urinalysis dipstick manually resulted [...] of: Mana Jang DO documented in this encounterSSM Health Cardinal Glennon Children's HospitalAugldnewra31-34-9817 History of Present illness Narrative* Kenia Carter [...] or undercooked meat, and stay away from [facility]. Patient has also been advised to not [...] by: Kenia Carter LPN documented in this encounterSSM Health Cardinal Glennon Children's HospitalMkfytxemqm33-24-4682 History of Present illness Narrative* Angelina Plunkett [...] nursing note reviewed. Exam conducted with a electronic test technician present. Vitals: Estimated body mass index is [...] of: Mana Jang DO documented in this encounterNONJ HealthcareEvaluation note* Diagnosis Well woman exam with routine gynecological exam Routine gynecological examination documented in this encounter [facility] HealthcareEvaluation note* Diagnosis Missed menses , unspecified gestational age Encounter for supervision of normal first in first trimester documented in this encounter [facility] HealthcareEvaluation note* Diagnosis Urinary tract infection without hematuria, site unspecified- Primary 13 weeks gestation of ([facility]) Second trimester ([facility]) state, incidental Nausea Nausea alone documented in this encounter [facility] HealthcareEvaluation note* Diagnosis 17 weeks gestation of ([facility]) Second trimester ([facility]) state, incidental Screening, , for anatomic survey ([facility]) Encounter for anatomic survey Exposure to STD Vaginal discharge Leukorrhea, not specified as infective documented in this encounter [facility]* Diagnosis Second trimester ([facility]) state, incidental 21 weeks gestation of ([facility]) documented in this encounter [facility] HealthcareEvaluation note* Diagnosis 25 weeks gestation of ([facility]) Second trimester ([facility]) state, incidental Diabetes mellitus [...] section and content) DATE CREATED AUTHOR 01/05/2018 [facility] DATE CREATED AUTHOR AUTHOR'S ORGANIZ ATION 08/29/2022 [facility] DATE CREATED AUTHOR AUTHOR'S ORGANIZ ATION 05/21/2025 [facility] EPIC Care Teams (unrecognized sec tion and content) Team MemberRelationshipSpecialtyStart DateEnd Date Taylor Roberto, LIBRARY CLERK [employer] [address] [facility] [address] [place] [address] PCP - Alfredo Commercial03/09/24Team MemberRelationshipSpecialtyStart DateEnd Date Taylor Roberto, LIBRARY CLERK [employer] [address] [facility] [address] [place] [address] PCP - Alfredo Commercial03/09/24 Reason for Visit [...] BE BASED ON THE PRIMARY CLINICAL RECORDS. [facility] [employer] [facility]. provides no warranty or guarantee of the accuracy or completeness of information in this document.
--- OUTSIDE RECORDS SUMMARY | 2025-07-08 08:04 | XMS_ITS | Encounter Summary ---
Author Organization [facility] Address [address] [place] [address] Care Team Providers Care Platform Material Handling Supervisor Name Role Phone Unavailable Primary Care Provider Unavailabl e Encounter Details DateTypeDepartmentCare Team (Latest Contact Info)Zqrirhaqiqh13/29/2025amboo flowsheet [facility] [address] [facility] [place] [address] Kemi Chaney PA [address] [place] [address] Social History Tobacco UseTypesPacks/DayYears UsedDateSmoking Tobacco: NeverSmokeless Tobacco: NeverAlcohol UseStandard Drinks/WeekCommentsYes0 (1 standard drink = 0.6 oz pure alcohol)OccasionalEstimated Date of FptpslwvVvkamlceHra45/11/2026Based on last menstrual period of 10/12/2024Sex and Gender InformationValueDate Recorded Sex Assigned at BirthNot on fileLegal YpkPinsgz48/15/2023 11:19 PM EDTGender IdentityNot on fileSexual OrientationNot on filedocumented as of this encounter Plan of Treatment DateTypeDepartmentCare Team (Latest Contact Info)Xfbhqbrhyad18/07/2026 2:00 PM ESTRoutine [facility] [address] [facility] [place] [address] Guero Jang DO [address] [facility] [place] [address] 09/07/2025 9:00 AM ESTOffice Visit [facility] Franny RODRIGUEZ [address] [place] [address] Guero Jang DO [address] [place] [address] [place] [address] documented as of this encounter Visit Diagnoses Not on filedocumented in this encounter
--- OUTSIDE RECORDS SUMMARY | 2025-07-08 08:04 | XMS_ITS | Clinical Summary ---
Author Organization [facility] Address [address] [place] [address] Care Team Providers Care Services Manager Name Role Phone Unavailable Primary [...] as needed for nausea. 30 tablet 5Active labetalol (Normodyne) 100 MG tablet Indications:HypertensionTake 1 tablet (100 mg) by mouth in the morning and 1 tablet (100 mg) before bedtime. 60 tablet 501/6Active Encounters DateTypeDepartmentCare PheeRgwggmzrjvw49/29/2025 3:20 PM ESTRoutine NOMS Franny [place] [address] Kemi Chaney PA 38 weeks gestation of ([facility]); Third trimester ([facility]); SGA (small for gestational age) ([facility]); induced hypertension, antepartum ([facility]); Hypertension affecting in third trimester ([facility])5[place] [address] Kemi Chaney PA 06/29/2025 2:20 PM ESTRoutine [facility] Franny [place] [address] Kemi Chaney PA Third trimester ([facility]); 37 weeks gestation of ([facility])5Bamboo flowsheet [facility] Franny Capone [facility] [place] [address] Kemi Chaney PA 06/22/2025 1:40 PM ESTRoutine [facility] Franny [place] [address] Kemi Chaney PA Third trimester ([facility]); 36 weeks gestation of ([facility])06/22/2025 1:00 PM ESTAncillary Procedure [facility] Capone [facility] [place] [address] Third trimester ([facility]); SGA (small for gestational age) ([facility])5Clinisync Result Encounter NOMS External Department Unsolicited Kemi Chaney PA 06/15/2025 2:10 PM ESTRoutine [facility] Franny Capone [facility] [place] [address] Guero Jang DO Third trimester ([facility]); 35 weeks gestation of ([facility]); SGA (small for gestational age) ([facility])5Bamboo flowsheet [facility] Franny Capone [facility] [place] [address] Guero Jang DO 06/01/2025 10:50 AM ESTRoutine [facility] Franny Capone [facility] [place] [address] Kemi Chaney PA Third trimester ([facility]); 33 weeks gestation of ([facility])5Bamboo flowsheet [facility] Franny GRAFN [address] [facility] [place] [address] Kemi Chaney PA 05/18/2025 10:40 AM ESTRoutine [facility] Franny GRAFN [address] [facility] [place] [address] Guero Jang DO Third trimester ([facility]); 31 weeks gestation of ([facility])05/18/2025 10:00 AM ESTAncillary Procedure [facility] Franny GRAFN [address] [place] [address] [place] [address] 28 weeks gestation of ([facility]); Size of fetus inconsistent with dates in third trimester ([facility])04/30/2025 8:50 AM EDTRoutine [facility]OM[facility] Franny RODRIGUEZ [address] [facility] [place] [address] Kemi Chaney PA 28 weeks gestation of ([facility]); Third trimester ([facility]); Size of fetus inconsistent with dates in third trimester ([facility])04/30/2025 Bamboo flowsheet [facility] Franny RODRIGUEZ [address] [place] [address] [place] [address] Kemi Chaney PA 04/13/2025linisync Result Encounter NOMS External Department Unsolicited Le Thompson NP 04/09/2025 9:00 AM EDTRoutine [facility] Franny GRAFN [address] [place] [address] [place] [address] Le Thompson NP 25 weeks gestation of ([facility]); Second trimester ([facility]); Diabetes mellitus ygbexgzbb09/02/2025Bamboo flowsheet [facility] Franny GRAFN [address] [facility] [place] [address] Le Thompson NP 04/08/2025Travelfrom Last 3 Months Social History Tobacco UseTypesPacks/DayYears UsedDateSmoking Tobacco: NeverSmokeless Tobacco: Never Tobacco Cessation:Counseling Given: Not Answered Alcohol UseStandard Drinks/WeekCommentsYes0 (1 standard drink = 0.6 oz pure alcohol)OccasionalEstimated Date of IapopblkNpqrcrvgYyo50/11/2026ased on last menstrual period of 10/12/2024Sex and Gender InformationValueDate Recorded Sex Assigned at BirthNot on fileLegal ZtcJebvyh79/15/2023 11:19 PM EDTGender IdentityNot on fileSexual OrientationNot on file Last Filed Vital Signs Vital SignReadingTime TakenCommentsBlood Jlgwojhh163/9607/06/2025 3:35 PM EST Bausp137601/01/2024 7:02 PM IGCZjhontrruup81.7 ??C (98 ??F)01/01/2024 7:02 PM EDT Respiratory Rate--Oxygen Odtxbbjsqe21%01/01/2024 7:02 PM EDTInhaled Oxygen Concentration--Bpjfhk293 kg (245 lb 12.8 oz)07/06/2025 3:35 PM MTGFfmqzp708.1 cm (5' 5 )08/21/2022 12:00 PM ESTBody Mass Index40.9008/21/2022 12:00 PM EST Plan of Treatment DateTypeDepartmentCare Team (Latest Contact Info)Mfrgikncihe75/07/2026 2:00 PM ESTRoutine JACQUELINE RODRIGUEZ [address] [place] [address] [place] [address] Guero Jang DO [address] [facility] [address] [place], [place] [id number] 09/07/2025 9:00 AM ESTOffice Visit JACQUELINE RODRIGUEZ [address] [facility] [place] [address] Guero Jang DO [address] [facility] [address] [place], [place] [address] Procedures Procedure NamePriorityDate/TimeAssociated DiagnosisCommentsPOCT URINALYSIS NCRGVXCRAojlers73/29/2025 3:41 PM EST 38 weeks gestation of ([facility]) Third trimester ([facility]) POCT URINALYSIS PEPTKYURMhqsojp81/22/2025 2:25 PM EST Third trimester ([facility]) 37 weeks gestation of ([facility]) POCT URINALYSIS SITMTCUBLlejfrq33/15/2025 1:55 PM EST Third trimester ([facility]) STREP GP B CULTURE+UOBSUzmqmzg76/15/2025 1:35 PM EST US OB FOLLOW UP TRANSABDOMINAL JDYIIICLApbrnfd19/15/2025 1:29 PM EST Third trimester ([facility]) SGA (small for gestational age) ([facility]) POCT URINALYSIS LZXPEJYEPltrqce85/08/2025 2:53 PM EST Third trimester ([facility]) POCT URINALYSIS AXQIBRALAkkibzc55/24/2025 10:58 AM EST 33 weeks gestation of ([facility]) POCT URINALYSIS JJDGFAFNWeawvkd25/10/2025 10:41 AM EST 31 weeks gestation of ([facility]) US OB FOLLOW UP TRANSABDOMINAL HPNPSOQNEyugnps06/10/2025 10:19 AM EST 28 weeks gestation of ([facility]) Size of fetus inconsistent with dates in third trimester ([facility]) POCT URINALYSIS ZYUEUOAMYtincrp83/23/2025 9:07 AM EDT 28 weeks gestation of ([facility]) Third trimester ([facility]) GLUCOSE 1 RHZMXjuhhak31/06/2025 9:36 AM EDT ALL CBC WITH AUTO WBEMLpvukph61/06/2025 9:36 AM EDT POCT URINALYSIS ICMDEAHUBirjlwv39/02/2025 9:01 AM EDT 25 weeks gestation of ([facility]) Second trimester ([facility]) from Last 3 Months Results * (ABNORMAL) POCT urinalysis dipstick manually resulted (07/06/2025 3:41 PM EST) Only the most recent of8 resultswithin the time period is included. ComponentValueRef RangeTest MethodAnalysis TimePerformed AtPathologist Signature Color, UAYellowClarity, UAClearGlucose, UANegativeNegative - 2000(110) ++++ mg/dLBilirubin, UANegativeNegative - 4(70) +++ mg/dLKetones, UANegativeNegative - 160(16) ++++ mg/dLSpec Grav, UA1.0301 - 1.03Blood, UANegativeNegative - 50 Dennis/mcLpH, UA6.05 - 9Protein, UAPositiveNegative - 2000(20) ++++ mg/dL Urobilinogen, UA1.00.2 - 12 mg/dLLeukocytes, UANegativeNegative - 500+++ Wilman/mcL Nitrite, UANegativeNegative - PositiveSpecimen (Source)Anatomical Location / LateralityCollection Method / VolumeCollection TimeReceived MshkClboe15/29/2025 3:41 PM EST Narrative Authorizing ProviderResult TypeResult StatusNor[facility] OF CARE TEST ENTER/EDIT ORDERABLESFinal Result * STREP GP [...] GP B CULTURE+RFLX Performed at: - [facility] GP B CULTURE+[id number] [place], [place] [id number] GP B CULTURE+RFLXLab Director: Jcarlos Carmona PhD, Phone: [phone] (Source)Anatomical Location / Laterality Collection Method / VolumeCollection TimeReceived Time06/22/2025 1:35 PM EST 06/22/2025 8:52 PM EST Narrative CLINISYNC - 06/27/2025 5:08 PM EST Authorizing ProviderResult TypeResult StatusAmy BiggersMercy Health St. [facility] BLOOD ORDERABLES Final ResultPerforming OrganizationAddressCity/State/ZIP CodePhone Number [facility] * OB follow up transabdominal approach (06/22/2025 1:29 [...] Gillis DO Authorizing ProviderResult TypeResult StatusCorey Suhail DOIMG OB US PROCEDURES Final Result * GLUCOSE 1 HOUR (04/13/2025 9:36 AM EDT)ComponentValueRef RangeTest Method Analysis TimePerformed AtPathologist SignatureGLUCOSE 1 LTCB708<130 mg/dLTBH Specimen (Source)Anatomical Location / LateralityCollection Method / Volume Collection TimeReceived Time04/13/2025 9:36 AM EDT1 9:37 AM EDT Narrative ANNYISYNC - 04/13/2025 10:24 AM EDT Authorizing ProviderResult TypeResult Status[facility] BLOOD ORDERABLESFinal ResultPerforming OrganizationAddressCity/State/ZIP CodePhone Number [facility] * (ABNORMAL) ALL CBC WITH AUTO DIFF (04/13/2025 9:36 AM EDT)ComponentValueRef RangeTest MethodAnalysis TimePerformed AtPathologist SignatureTBH WBC8.54.0 - 11.0 10 3/uLTBHTBH RBC3.83(L)4.20 - 5.40 10 6/uLTBHTBH HGB11.6(L)12.0 - 16.0 g/dLTBHTBH HCT34.0(L)36.0 - 48.0 %TBHTBH MCV88.881.0 - 99.0 fLTBHTBH MCH30.3 26.7 - 34.0 pgTBHTBH MCHC34.129.9 - 35.2 g/dLTBHTBH RDW13.811.0 - 15.0 %TBHTBH WTW657304 - 450 10 3/uLTBHTBH MPV9.89.5 - 13.5 [...]
--- OUTSIDE RECORDS SUMMARY | 2025-07-08 08:04 | XMS_ITS | Encounter Summary ---
Author Organization [facility] Address [address] [place] [address] Care Team Providers Care Transit Survey Worker Name Role Phone Unavailable Primary Care Provider Unavailabl e Encounter Details DateTypeDepartmentCare Team (Latest Contact Info)Fkbysztomlt32/15/2025linisync Result Encounter NOMS External Department Unsolicited Kemi Chaney PA [address] [facility] [address] [place], [facility] Social History Tobacco UseTypesPacks/DayYears UsedDateSmoking Tobacco: NeverSmokeless Tobacco: NeverAlcohol UseStandard Drinks/WeekCommentsYes0 (1 standard drink = 0.6 oz pure alcohol)OccasionalEstimated Date of GubzugcmOvtgepjlBvk78/11/2026ased on last menstrual period of 10/12/2024Sex and Gender InformationValueDate Recorded Sex Assigned at BirthNot on fileLegal XanAvsdan79/15/2023 11:19 PM EDTGender IdentityNot on fileSexual OrientationNot on filedocumented as of this encounter Plan of Treatment DateTypeDepartmentCare Team (Latest Contact Info)Zjzydmcmxzg87/07/2026 2:00 PM ESTRoutine [facility] Cassandra RODRIGUEZ [address] [place] [phone] Guero Jang DO [address] [place] [address] 09/07/2025 9:00 AM ESTOffice Visit [facility] Cassandra RODRIGUEZ [address] [place] [address] Guero Jang, [address] [facility] [place] [address] documented as of this encounter Procedures Procedure NamePriorityDate/TimeAssociated DiagnosisCommentsSTREP GP B CULTURE+IALQKhvzcxj85/15/2025 1:35 PM EST documented in this encounter [...] GP B CULTURE+RFLX Performed at: - [facility]erry[facility]REP GP B CULTURE+[id number] [place], [place] [id number] GP B CULTURE+RFLXLab Director: Jcarlos Carmona PhD, Phone: [phone] (Source)Anatomical Location / Laterality Collection Method / VolumeCollection TimeReceived Time06/22/2025 1:35 PM EST 06/22/2025 8:52 PM EST Narrative CLINISYNC - 06/27/2025 5:08 PM EST Authorizing ProviderResult TypeResult StatusAmy Ritu CHAVES BLOOD ORDERABLES Final ResultPerforming OrganizationAddressCity/State/ZIP CodePhone Number CLINISYNC TB documented in this encounter Visit Diagnoses Not on filedocumented in this encounter
--- OUTSIDE RECORDS SUMMARY | 2025-07-08 08:04 | XMS_ITS | Encounter Summary ---
Author Organization [facility] Address [address] [place] [address] Care Team Providers Care Youth Associate Name Role Phone Unavailable Primary Care Provider Unavailabl e Encounter Details DateTypeDepartmentCare Team (Latest Contact Info)Kgidirlqlxc17/22/2025amboo flowsheet NOMVi RODRIGUEZ [address] [facility] [place] [address] Kemi Chaney PA [address] [facility] [place] [address] Social History Tobacco UseTypesPacks/DayYears UsedDateSmoking Tobacco: NeverSmokeless Tobacco: NeverAlcohol UseStandard Drinks/WeekCommentsYes0 (1 standard drink = 0.6 oz pure alcohol)OccasionalEstimated Date of MekolvneQqmspjtcCmo83/11/2026ased on last menstrual period of 10/12/2024Sex and Gender InformationValueDate Recorded Sex Assigned at BirthNot on fileLegal GesIgxytr44/15/2023 11:19 PM EDTGender IdentityNot on fileSexual OrientationNot on filedocumented as of this encounter Plan of Treatment DateTypeDepartmentCare Team (Latest Contact Info)Tpewqaonmja91/07/2026 2:00 PM ESTRoutine NOMVi RODRIGUEZ [address] [facility] [place] [address] Guero Jang DO [address] [facility] [place] [address] 09/07/2025 9:00 AM ESTOffice Visit NOMS Franny RODRIGUEZ [address] [facility] [place] [place] [address] Guero Jang DO [address] [place] [address] [place] [address] documented as of this encounter Visit Diagnoses Not on filedocumented in this encounter
[2025-07-08 08:30] VITALS: BP 128/69; PULSE 102
== END 2025-07-08 08:58 | disposition home or self-care (01) ==
LOC: US 08:01 → FBC 08:03
PROVIDERS: Visit Provider Physician Assistant
DX: O16.3 Unspecified maternal hypertension, third trimester (principal); Z3A.38 38 weeks gestation of pregnancy
CPT/HCPCS: 76818

== ENCOUNTER 2025-07-08 09:05 | Outpatient (OUT) | payer BC, SELFPAY ==
--- OUTSIDE RECORDS SUMMARY | 2025-06-29 14:20 | XMS_ITS | Encounter Summary ---
Author Organization [facility] Address [address] [place] [address] Care Team Providers Care Arch Support Technician Name Role Phone Unavailable Primary Care Provider Unavailabl e Reason for Visit * ReasonCommentsRoutine Visit Encounter Details DateTypeDepartmentCare Team (Latest Contact Info)Dcvofngukoo98/22/2025 2:20 PM ESTRoutine [facility] [address] [place] [place] [phone] Kemi Chaney PA [address] [place] [address] Third trimester ([facility]); 37 weeks gestation of ([facility]) Social History Tobacco UseTypesPacks/DayYears UsedDateSmoking Tobacco: NeverSmokeless Tobacco: NeverAlcohol UseStandard Drinks/WeekCommentsYes0 (1 standard drink = 0.6 oz pure alcohol)OccasionalEstimated Date of XhlotfbeIqupvrctQfa69/11/2026Based on last menstrual period of 10/12/2024Sex and Gender InformationValueDate Recorded Sex Assigned at BirthNot on fileLegal WwuAwzldc61/15/2023 11:19 PM EDTGender IdentityNot on fileSexual OrientationNot on filedocumented as of this encounter Last Filed Vital Signs Vital SignReadingTime TakenCommentsBlood Vrmbjymv624/7606/29/2025 2:20 PM EST Pulse--Temperature--Respiratory Rate--Oxygen Saturation--Inhaled Oxygen Concentration--Jztnci602 kg (243 lb)06/29/2025 2:20 PM ESTHeight--Body Mass Index40.44008/21/2022 12:00 PM ESTdocumented in this encounter Progress Notes * TAN Edward - 06/29/2025 2:20 PM EST Reason for Appointment: Patient ID: [...] reviewed. Vitals: Estimated body mass index is 40.44 kg/m?? as calculated from the following: Height as of 08/21/22: 5' 5 . Weight as of this encounter: 243 lb. BP: 130/76 Patient's last menstrual period was 10/12/2024. Assessment/Plan ICD-10-CM 1. Third trimester ([facility]) Z34.93 POCT urinalysis dipstick manually resulted 2. 37 weeks gestation of ([facility]) Z3A.37 POCT urinalysis dipstick manually resulted Assessment/Plan Return OB: Patient presents today for a routine obstetrics appointment. Patient is currently 37w1d . Patient states she is doing well [...] Plan of Treatment DateTypeDepartmentCare Team (Latest Contact Info)Dtdfhekkdat16/07/2026 2:00 PM ESTRoutine [facility] [address] [place] [address] [place] [phone] Guero Jang, [address] [place] [address] 09/07/2025 9:00 AM ESTOffice Visit [facility] [address] [facility] [place] [phone] Guero Jang, [address] [place], [place] [phone] documented as of this encounter Procedures Procedure NamePriorityDate/TimeAssociated DiagnosisCommentsPOCT URINALYSIS FIDJVUHWGdkflzr08/22/2025 2:25 PM EST Third trimester ([facility]) 37 weeks gestation of ([facility]) documented in this encounter Results * POCT urinalysis dipstick manually resulted (06/29/2025 2:25 PM EST)Component ValueRef RangeTest MethodAnalysis TimePerformed AtPathologist SignatureColor, UAYellowClarity, UAClearGlucose, UANegativeNegative - 2000(110) ++++ mg/dL Bilirubin, UANegativeNegative - 4(70) +++ mg/dLKetones, UANegativeNegative - 160(16) ++++ mg/dLSpec Grav, UA1.0201 - 1.03Blood, UANegativeNegative - 50 Dennis/mcLpH, UA6.05 - 9Protein, UANegativeNegative - 2000(20) ++++ mg/dL Urobilinogen, UA1.00.2 - 12 mg/dLLeukocytes, UANegativeNegative - 500+++ Wilman/mcLNitrite, UANegativeNegative - PositiveSpecimen (Source)Anatomical Location / LateralityCollection Method / VolumeCollection TimeReceived Time Urine06/29/2025 2:25 PM EST Narrative Authorizing ProviderResult TypeResult StatusChesapeake [facility] TEST ENTER/EDIT ORDERABLESFinal Result documented in this encounter Visit Diagnoses Diagnosis Third trimester ([facility]) state, incidental 37 weeks gestation of ([facility]) documented in this encounter
--- OUTSIDE RECORDS SUMMARY | 2025-07-06 15:20 | XMS_ITS | Encounter Summary ---
Author Organization [facility] Address [address] [place] [address] Care Team Providers Care Office Runner Name Role Phone Unavailable Primary Care Provider Unavailabl e Reason for Visit * ReasonCommentsRoutine Visit Encounter Details DateTypeDepartmentCare Team (Latest Contact Info)Nrdjxomeoeg15/29/2025 3:20 PM ESTRoutine [facility] [address] [phone] Kemi Chaney PA [address] [place] [address] 38 weeks gestation of ([facility]); Third trimester ([facility]); SGA (small for gestational age) ([facility]); induced hypertension, antepartum ([facility]); Hypertension affecting in third trimester ([facility]) Social History Tobacco UseTypesPacks/DayYears UsedDateSmoking Tobacco: NeverSmokeless Tobacco: NeverAlcohol UseStandard Drinks/WeekCommentsYes0 (1 standard drink = 0.6 oz pure alcohol)OccasionalEstimated Date of WgvlklbeCdvlasybHmb40/11/2026Based on last menstrual period of 10/12/2024Sex and Gender InformationValueDate Recorded Sex Assigned at BirthNot on fileLegal WpnLebntv40/15/2023 11:19 PM EDTGender IdentityNot on fileSexual OrientationNot on filedocumented as of this encounter Last Filed Vital Signs Vital SignReadingTime TakenCommentsBlood Fvbmvzby772/9607/06/2025 3:35 PM EST Pulse--Temperature--Respiratory Rate--Oxygen Saturation--Inhaled Oxygen Concentration--Yanxrc176 kg (245 lb 12.8 oz)07/06/2025 3:35 PM [...] nursing note reviewed. Exam conducted with a machine hoop maker helper present. Vitals: Estimated body mass index is 40.9 kg/m?? as calculated from the following: Height as of 08/21/22: 5' 5 . Weight as of this encounter: 245 lb 12.8 oz. BP: Patient's last menstrual period was 10/12/2024. Assessment/Plan ICD-10-CM 1. 38 weeks gestation of ([facility]) Z3A.38 POCT urinalysis dipstick manually resulted 2. Third trimester ([facility]) Z34.93 POCT urinalysis dipstick manually resulted 3. SGA (small for gestational age) ([facility]) P05.10 Assessment/Plan Return OB: Patient presents today [...] Plan of Treatment DateTypeDepartmentCare Team (Latest Contact Info)Nndxzztuxgr68/07/2026 2:00 PM ESTRoutine [facility] [address] [place] [address] [place] [phone] Guero Jang, DO [address] [place] [address] 09/07/2025 9:00 AM ESTOffice Visit JACQUELINE RODR[facility] [address] [place] [address] [place] [phone] Guero Jang, DO [address] [place] [address] NameTypePriorityAssociated DiagnosesOrder ScheduleCreatinineLabRoutine induced hypertension, antepartum ([facility]) [...] ratio, urineLab Routine 38 weeks gestation of ([facility]) Third trimester ([facility]) induced hypertension, antepartum ([facility]) Expected: 07/06/2025 (Approximate), Expires: 07/06/2026US biophysical profile w non stress testImagingRoutine Hypertension affecting in third trimester ([facility]) Expected: 07/06/2025 (Approximate), Expires: 01/04/2026documented as of this encounter Procedures Procedure NamePriorityDate/TimeAssociated DiagnosisCommentsPOCT URINALYSIS ICHQTZMMFjgfcdt89/29/2025 3:41 PM EST 38 weeks gestation of ([facility]) Third trimester ([facility]) documented in this encounter Results * (ABNORMAL) [...] Location / LateralityCollection Method / VolumeCollection TimeReceived KnkjAmpsa11/29/2025 3:41 PM EST Narrative Authorizing ProviderResult TypeResult StatusKemi Chaney [facility] OF CARE TEST ENTER/EDIT ORDERABLESFinal Result documented in this encounter Visit Diagnoses Diagnosis 38 weeks gestation of ([facility]) Third trimester ([facility]) state, incidental SGA (small for gestational age) ([facility]) Gasnc-vpx-phusu without mention of malnutrition, unspecified (weight) induced hypertension, antepartum ([facility]) Transient hypertension of , antepartum Hypertension affecting in third trimester ([facility]) documented in this encounter
--- OUTSIDE RECORDS SUMMARY | 2025-07-08 09:09 | XMS_ITS | Encounter Summary ---
Author Organization [facility] Address [address] [place] [address] Care Team Providers Care Hosiery Pairer Name Role Phone Unavailable Primary Care Provider Unavailabl e Encounter Details DateTypeDepartmentCare Team (Latest Contact Info)Ctouelvmceo90/29/2025amboo flowsheet NOMVi RODRIGUEZ [address] [facility] [place] [address] Kemi Chaney PA [address] [facility] [place] [address] Social History Tobacco UseTypesPacks/DayYears UsedDateSmoking Tobacco: NeverSmokeless Tobacco: NeverAlcohol UseStandard Drinks/WeekCommentsYes0 (1 standard drink = 0.6 oz pure alcohol)OccasionalEstimated Date of XvmresxbHjqyhkfmCzx45/11/2026Based on last menstrual period of 10/12/2024Sex and Gender InformationValueDate Recorded Sex Assigned at BirthNot on fileLegal HhmTrkqbx62/15/2023 11:19 PM EDTGender IdentityNot on fileSexual OrientationNot on filedocumented as of this encounter Plan of Treatment DateTypeDepartmentCare Team (Latest Contact Info)Xsqybfnkazr95/07/2026 2:00 PM ESTRoutine NOMVi RODRIGUEZ [address] [facility] [place] [address] Guero Jang DO [address] [facility] [place] [address] 09/07/2025 9:00 AM ESTOffice Visit NOMS Franny RODRIGUEZ [address] [facility] [place] [place] [address] Guero Jang DO [address] [place] [address] [place] [address] documented as of this encounter Visit Diagnoses Not on filedocumented in this encounter
--- OUTSIDE RECORDS SUMMARY | 2025-07-08 09:09 | XMS_ITS | Encounter Summary ---
Author Organization [facility] Address [address] [place] [address] Care Team Providers Care Cloth Bleaching Range Tender Name Role Phone Unavailable Primary Care Provider Unavailabl e Encounter Details DateTypeDepartmentCare Team (Latest Contact Info)Ujbiizburge55/22/2025amboo flowsheet NOMVi RODRIGUEZ [address] [facility] [place] [address] Kemi Chaney PA [address] [facility] [place] [address] Social History Tobacco UseTypesPacks/DayYears UsedDateSmoking Tobacco: NeverSmokeless Tobacco: NeverAlcohol UseStandard Drinks/WeekCommentsYes0 (1 standard drink = 0.6 oz pure alcohol)OccasionalEstimated Date of PiyohexbPahvhgshZuf48/11/2026ased on last menstrual period of 10/12/2024Sex and Gender InformationValueDate Recorded Sex Assigned at BirthNot on fileLegal SagEqkpwf22/15/2023 11:19 PM EDTGender IdentityNot on fileSexual OrientationNot on filedocumented as of this encounter Plan of Treatment DateTypeDepartmentCare Team (Latest Contact Info)Ughxcbexrux87/07/2026 2:00 PM ESTRoutine NOMVi RODRIGUEZ [address] [facility] [place] [address] Guero Jang DO [address] [facility] [place] [address] 09/07/2025 9:00 AM ESTOffice Visit NOMS Franny RODRIGUEZ [address] [facility] [place] [address] Guero Jang DO [address] [place] [address] [place] [address] documented as of this encounter Visit Diagnoses Not on filedocumented in this encounter
--- OUTSIDE RECORDS SUMMARY | 2025-07-08 09:09 | XMS_ITS | Encounter Summary ---
Author Organization [facility] Address [address] [place] [address] Care Team Providers Care Life Insurance Specialist Name Role Phone Unavailable Primary Care Provider Unavailabl e Encounter Details DateTypeDepartmentCare Team (Latest Contact Info)Csfccjipzjx07/15/2025linisync Result Encounter NOMS External Department Unsolicited Kemi Chaney PA [address] [facility] [address] [place], [facility] Social History Tobacco UseTypesPacks/DayYears UsedDateSmoking Tobacco: NeverSmokeless Tobacco: NeverAlcohol UseStandard Drinks/WeekCommentsYes0 (1 standard drink = 0.6 oz pure alcohol)OccasionalEstimated Date of QinzplucRnydjiteIwb52/11/2026ased on last menstrual period of 10/12/2024Sex and Gender InformationValueDate Recorded Sex Assigned at BirthNot on fileLegal NpjFlhbhy82/15/2023 11:19 PM EDTGender IdentityNot on fileSexual OrientationNot on filedocumented as of this encounter Plan of Treatment DateTypeDepartmentCare Team (Latest Contact Info)Tasakszglut57/07/2026 2:00 PM ESTRoutine NOMS Cassandra RODRIGUEZ [address] [place] [phone] Guero Jang DO [address] [place] [address] 09/07/2025 9:00 AM ESTOffice Visit NOMS Cassandra RODRIGUEZ [address] [place] [address] Guero Jang, [address] [facility] [place] [address] documented as of this encounter Procedures Procedure NamePriorityDate/TimeAssociated DiagnosisCommentsSTREP GP B CULTURE+NMFJCctjbem16/15/2025 1:35 PM EST documented in this encounter [...] GP B CULTURE+RFLX Performed at: - [facility]RE[facility] GP B CULTURE+[id number] [place], [place] [id number] GP B CULTURE+RFLXLab Director: Jcarlos Carmona PhD, Phone: [phone] (Source)Anatomical Location / Laterality Collection Method / VolumeCollection TimeReceived Time06/22/2025 1:35 PM EST 06/22/2025 8:52 PM EST Narrative CLINISYNC - 06/27/2025 5:08 PM EST Authorizing ProviderResult TypeResult StatusAmy Ritu CHAVES BLOOD ORDERABLES Final ResultPerforming OrganizationAddressCity/State/ZIP CodePhone Number CLINISYNC TB documented in this encounter Visit Diagnoses Not on filedocumented in this encounter
--- OUTSIDE RECORDS SUMMARY | 2025-07-08 09:09 | XMS_ITS | Clinical Summary ---
Author Organization [facility] Address [address] [place] [address] Care Team Providers Care Security Program Manager Name Role Phone Unavailable Primary [...] before bedtime. 60 tablet 501/6Active Encounters DateTypeDepartmentCare KaboVnmpsnljymr84/29/2025 3:20 PM ESTRoutine [facility] [place] [address] Kemi Chaney PA 38 weeks gestation of ([facility]); Third trimester ([facility]); SGA (small for gestational age) ([facility]); induced hypertension, antepartum ([facility]); Hypertension affecting in third trimester ([facility])5[place] [address] Kemi Chaney PA 06/29/2025 2:20 PM ESTRoutine [facility] [place] [address] Kemi Chaney PA Third trimester ([facility]); 37 weeks gestation of ([facility])5Bamboo flowsheet [facility] Capone [facility] [place] [address] Kemi Chaney PA 06/22/2025 1:40 PM ESTRoutine [facility] [place] [address] Kemi Chaney PA Third trimester ([facility]); 36 weeks gestation of ([facility])06/22/2025 1:00 PM ESTAncillary Procedure [facility] [place] [address] Third trimester ([facility]); SGA (small for gestational age) ([facility])5Clinisync Result Encounter [facility] External Department Unsolicited Kemi Chaney PA 06/15/2025 2:10 PM ESTRoutine [facility] Capone [facility] [place] [address] Guero Jang DO Third trimester ([facility]); 35 weeks gestation of ([facility]); SGA (small for gestational age) ([facility])5Bamboo flowsheet [facility]one [facility] [place] [address] Guero Jang DO 06/01/2025 10:50 AM ESTRoutine [facility]one [facility] [address] Kemi Chaney PA Third trimester ([facility]); 33 weeks gestation of ([facility])5Bamboo flowsheet [facility] Franny GRAFN [address] [facility] [address] Kemi Chaney PA 05/18/2025 10:40 AM ESTRoutine [facility] Franny GRAFN [address] [facility] [address] Guero Jang DO Third trimester ([facility]); 31 weeks gestation of ([facility])05/18/2025 10:00 AM ESTAncillary Procedure [facility] GRAFN [address] [place] [address] [place] [address] 28 weeks gestation of ([facility]); Size of fetus inconsistent with dates in third trimester ([facility])04/30/2025 8:50 AM EDTRoutine [facility] Franny RODRIGUEZ [address] [facility] [place] [address] Kemi Chaney PA 28 weeks gestation of ([facility]); Third trimester ([facility]); Size of fetus inconsistent with dates in third trimester ([facility])04/30/2025 Bamboo flowsheet [facility] Franny RODRIGUEZ [address] [place] [address] [place] [phone] Kemi Chaney PA 04/13/2025linisync Result Encounter [facility]OMS External Department Unsolicited Le Thompson NP 04/09/2025 9:00 AM EDTRoutine [facility] Franny GRAFN [address] [place] [address] [place] [phone] Le Thompson NP 25 weeks gestation of ([facility]); Second trimester ([facility]); Diabetes mellitus wetpdfbdi99/02/2025Bamboo flowsheet [facility] GRAFN [address] [facility] [place] [phone] Le Thompson NP 04/08/2025Travelfrom Last 3 Months Social History Tobacco UseTypesPacks/DayYears UsedDateSmoking Tobacco: NeverSmokeless Tobacco: Never Tobacco Cessation:Counseling Given: Not Answered Alcohol UseStandard Drinks/WeekCommentsYes0 (1 standard drink = 0.6 oz pure alcohol)OccasionalEstimated Date of EuywslecBmbapgsaRom70/11/2026ased on last menstrual period of 10/12/2024Sex and Gender InformationValueDate Recorded Sex Assigned at BirthNot on fileLegal VvbYlpchl88/15/2023 11:19 PM EDTGender IdentityNot on fileSexual OrientationNot on file Last Filed Vital Signs Vital SignReadingTime TakenCommentsBlood Xcjhaynk770/9607/06/2025 3:35 PM EST Zzssz574101/01/2024 7:02 PM AAGIicvbyguogf43.7 ??C (98 ??F)01/01/2024 7:02 PM EDT Respiratory Rate--Oxygen Ghgzqzdfeu04%01/01/2024 7:02 PM EDTInhaled Oxygen Concentration--Uphmzz788 kg (245 lb 12.8 oz)07/06/2025 3:35 PM YCAFvmqoh577.1 cm (5' 5 )08/21/2022 12:00 PM ESTBody Mass Index40.9008/21/2022 12:00 PM EST Plan of Treatment DateTypeDepartmentCare Team (Latest Contact Info)Xrujesznjbc50/07/2026 2:00 PM ESTRoutine JACQUELINE RODRIGUEZ [address] [place] [address] [place] [address] Guero Jang DO [address] [place], [place] [phone] 09/07/2025 9:00 AM ESTOffice Visit JACQUELINE RODRIGUEZ [address] [facility] [place] [address] Guero Jang DO [address] [place], [place] [phone] Procedures Procedure NamePriorityDate/TimeAssociated DiagnosisCommentsPOCT URINALYSIS SNNIUCXHQvgztus31/29/2025 3:41 PM EST 38 weeks gestation of ([facility]) Third trimester ([facility]) POCT URINALYSIS JQSLMMNYTbaxhvl20/22/2025 2:25 PM EST Third trimester ([facility]) 37 weeks gestation of ([facility]) POCT URINALYSIS TKQXVTZKQmjkkmw15/15/2025 1:55 PM EST Third trimester ([facility]) STREP GP B CULTURE+SJCKCczlgmz77/15/2025 1:35 PM EST US OB FOLLOW UP TRANSABDOMINAL HKWQXXLMTmjdwmb79/15/2025 1:29 PM EST Third trimester ([facility]) SGA (small for gestational age) ([facility]) POCT URINALYSIS HDJMCLQNOaztokl69/08/2025 2:53 PM EST Third trimester ([facility]) POCT URINALYSIS DPWHEBKTZjphixm33/24/2025 10:58 AM EST 33 weeks gestation of ([facility]) POCT URINALYSIS AUKDROWCSmnmyau32/10/2025 10:41 AM EST 31 weeks gestation of ([facility]) US OB FOLLOW UP TRANSABDOMINAL LZVSXDNZNlupctk46/10/2025 10:19 AM EST 28 weeks gestation of ([facility]) Size of fetus inconsistent with dates in third trimester ([facility]) POCT URINALYSIS SPZHSQTROgjwmmi88/23/2025 9:07 AM EDT 28 weeks gestation of ([facility]) Third trimester ([facility]) GLUCOSE 1 SULXYptdeao81/06/2025 9:36 AM EDT ALL CBC WITH AUTO HDUCIaujcmx64/06/2025 9:36 AM EDT POCT URINALYSIS KUZUYOMRKjxgyxo02/02/2025 9:01 AM EDT 25 weeks gestation of ([facility]) Second trimester ([facility]) from Last 3 Months Results * (ABNORMAL) [...] Location / LateralityCollection Method / VolumeCollection TimeReceived TsblPrnuq75/29/2025 3:41 PM EST Narrative Authorizing ProviderResult TypeResult StatusW[facility] OF CARE TEST ENTER/EDIT ORDERABLESFinal Result [...] GP B CULTURE+RFLX Performed at: - [facility] GP B CULTURE+[id number] [place], [place] [id number] GP B CULTURE+RFLXLab Director: Jcarlos Carmona PhD, Phone: [phone] (Source)Anatomical Location / Laterality Collection Method / VolumeCollection TimeReceived Time06/22/2025 1:35 PM EST 06/22/2025 8:52 PM EST Narrative CLINISYNC - 06/27/2025 5:08 PM EST Authorizing ProviderResult TypeResult StatusAmy [facility]Mer[facility] BLOOD ORDERABLES Final ResultPerforming OrganizationAddressCity/State/ZIP CodePhone Number [facility]OC[facility] * OB follow up transabdominal approach (06/22/2025 [...] RangeTest Method Analysis TimePerformed AtPathologist SignatureGLUCOSE 1 BYSQ026<130 mg/dLTBH Specimen (Source)Anatomical Location / LateralityCollection Method / Volume Collection TimeReceived Time04/13/2025 9:36 AM EDT1 9:37 AM EDT Narrative ANNYISYNC - 04/13/2025 10:24 AM EDT Authorizing ProviderResult TypeResult StatusLe Thompson [facility] BLOOD ORDERABLESFinal ResultPerforming OrganizationAddressCity/State/ZIP CodePhone Number [facility] * (ABNORMAL) ALL CBC WITH AUTO DIFF (04/13/2025 9:36 AM EDT)ComponentValueRef RangeTest MethodAnalysis TimePerformed AtPathologist SignatureTBH WBC8.54.0 - 11.0 10 3/uLTBHTBH RBC3.83(L)4.20 - 5.40 10 6/uLTBHTBH HGB11.6(L)12.0 - 16.0 g/dLTBHTBH HCT34.0(L)36.0 - 48.0 %TBHTBH MCV88.881.0 - 99.0 fLTBHTBH MCH30.3 26.7 - 34.0 pgTBHTBH MCHC34.129.9 - 35.2 g/dLTBHTBH RDW13.811.0 - 15.0 %TBHTBH ODD922984 - 450 10 3/uLTBHTBH MPV9.89.5 - 13.5 [...]
--- OUTSIDE RECORDS SUMMARY | 2025-07-08 09:10 | XMS_ITS | CCD ---
Author Organization [facility] Care Team Providers Care Director Erp Name Role Phone Ashley Mulligan Unavailable Unavailable Ashley Mulligan Unavailable Unavailable KEMI ROGERS~[phone] UNKNOWN Unavailable Un available MISC, DR DODD Primary Care Unavailable SUHAIL ., DR ADAIR Admitting Unavailable SUHAIL ., DR ADAIR Attending Unavailable SUHAIL ., DR ADAIR Consulting Unavailable Taylor Roberto NP Unavailable Unavailable Primary Care Provider UnavailMANA Smart Attending Unavailable MANA JANG Attending Unavailable MAAN JANG Attending Unavailable MANA JANG Referring Unavailable KEMI REGAN Attending Unavailable LE THOMPSON Attending Unavailable KEMI REGAN Attending Unavailable MANA JANG Attending Unavailable Allergies Allergy ClassificationReported Allergen(s)Allergy TypeDate of OnsetReaction(s) Facility (1 source)PenicillinDrug AllergyThe [facility] Repository (20 sources)Penicillin GDrug Cwxthoh67-81-5990LyomoudtipfAZRP Healthcare Medications Current Medications MedicationDrug Class(es)DatesSig (Normalized)Sig (Original)magnesium oxide 400 mg oral tablet (4 sources)Start: 02-05-2025 End: 21-92-4404wnbi 1 tablet by mouth once dailymagnesium oxide (Mag-Ox) 400 MG tablet Indications: Nonintractable headache, unspecified chronicitypattern, unspecified headache type Take 1 tablet (400 mg) by mouth Daily 30 tablet 6 02/05/2025 03/07/2025 Activenitrofurantoin, macrocrystals 25 mg / nitrofurantoin, monohydrate 75 mg oral capsule (2 sources)Nitrofuran AntibacterialStart: 01-12-2025 End: 11-02-5941vnnn 1 capsule by mouth in the morningnitrofurantoin, macrocrystal-monohydrate, (Macrobid) 100 MG capsule Indications: Urinary tract infection without hematuria, site unspecified Take 1 capsule (100 mg) by mouth in the morning and 1 capsule (100 mg) before bedtime. Do all this for 7 days. 14 capsule 01/12/2025 01/19/2025 Activeondansetron 4 mg oral tablet (17 sources)Serotonin-3 Receptor AntagonistStart: 61-46-5855nkcx 1 tablet by mouth every six hours [...] infections with a predominantly sexual mode of transmission]69-59-9683XqenixurQsnsszkej disorders (1 source)Missed period; Translations: [Irregular menstruation, unspecified] 45-07-2232HixmoejZjqfsl and vomiting (2 sources)Nausea; Translations: [Nausea]51-65-2563XbyowduyEtjxq complications of (2 sources) size does not accord with dates; Translations: [Uterine size- date discrepancy, third trimester]39-83-4142MuobvaygGjfiw female genital disorders (2 sources)Vaginal discharge; Translations: [Other specified noninflammatory disorders of vagina]23-75-2667NeafppooCorjp and delivery including normal (14 sources); Translations: [Encounter for supervision of normal , unspecified, unspecified trimester]66-83-6655QqmhblnaWgvra screening for suspected conditions (not mental disorders or infectious disease) (8 sources)Encounter for screening for malignant neoplasm of cervix; Translations: [Patient encounter status]Onset: 13-27-1531QeqytefqFnojbsvj codes; unclassified (2 sources)Gestation period, 13 weeks; Translations: [13 weeks gestation of ]01-03-0687ZjermkksAvettpkl codes; unclassified (2 sources)Gestation period, 17 weeks; Translations: [17 weeks gestation of ]01-00-1994JajptfrjZsfrhlco codes; unclassified (2 sources)Gestation period, 21 weeks; Translations: [21 weeks gestation of ]21-04-9134NirbczqkNxezbuzz codes; unclassified (2 sources)Gestation period, 25 weeks; Translations: [25 weeks gestation of ]28-72-2690FpizweofQqolborp codes; unclassified (2 sources)Gestation period, 28 weeks; Translations: [28 weeks gestation of ]97-72-9476RvikerscDlodcnxf codes; unclassified (2 sources)Gestation period, 31 weeks; Translations: [31 weeks gestation of ]49-71-1105DguuxsjuJtcrgst tract infections (2 sources)Urinary tract infectious disease; Translations: [Urinary tract infection, site not specified]41-49-1975Jfxhaqls Results Test NameValueInterpretationReference RangeFacilityUS OB FOLLOW UP TRANSABDOMINAL APPROACHon 46-33-1658IW OB FOLLOW UP TRANSABDOMINAL APPROACH FINDINGS: A [...] Delivery: 07/19/25 Gestational Age as of 04/30/2025: 04j0xLvvsitqgyi macro (dipstick) panel (U)on 39-98-4101Yfsuysgyn, UANegativeNegative - 4(70) +++ mg/dLNOMS HealthcareBlood, UAPositiveNegative [...] mg/dLNOMS HealthcareNOMS HealthcareUrinalysis macro (dipstick) panel (U)on 84-12-5392Ffgzwspqy, UA NegativeNegative - 4(70) +++ mg/dLNOMS HealthcareBlood, UANegativeNegative - 50 Dennis/mcLNOMS HealthcareClarity, UACloudyNOMS HealthcareColor, UAYellowNOMS HealthcareGlucose, UANegativeNegative - 2000(110) ++++ mg/dLNOMS Healthcare Interpretation and review of laboratory resultsNormalNOMS HealthcareKetones, UA NegativeNegative - 160(16) ++++ mg/dLNOMS HealthcareLeukocytes, UANegative Negative - 500+++ Wilman/mcLNOMS HealthcareNitrite, UANegativeNegative - Positive NOM HealthcarepH, UA7.05 - 9NOWA HealthcareProtein, UANegativeNegative - 2000(20) ++++ mg/dLOR[facility] HealthcareSpec Grav, UA1.0151 - 1.03NOSaint [facility] Hospital Urobilinogen, UA1.00.2 - 12 mg/dLColumbia Regional Hospital HealthcareALL CBC WITH AUTO DIFFon 30-29-4624YIRQRKRKA ABSOLUTE DKLE5ROET HealthcareBasophils/100 WBC (Bld) 0.5 %0.2 - 2.0 %[facility] HospitalEosinophils/100 WBC (Bld)1.4 %0.9 - 7.0 %[facility] HospitalErythrocyte distribution width (RBC) [Ratio]13.8 %11.0 - 15.0 %[facility] HospitalHematocrit (Bld) [Volume fraction]34 %Low36.0 - 48.0 %[facility] Hemoglobin (Bld) [Mass/Vol]11.6 g/dLLow12.0 - 16.0 g/dLSaint John's Saint Francis HospitalIMMATURE GRANULOCYTES ABS AUTO0.07HighSaint John's Saint Francis HospitalImmature granulocytes/100 WBC (Bld) 0.8 %High0.0 - 0.5 %[facility] HospitalInterpretation and review of laboratory resultsAbnormalSaint John's Saint Francis HospitalLYMPHOCYTES ABSOLUTE AUTO1.6NOMS [facility] Lymphocytes/100 WBC (Bld)18.6 %Low20.5 - 60.0 %[facility] HospitalH (RBC) [Entitic mass]30.3 pg26.7 - 34.0 pgRay County Memorial HospitalHC (RBC) [Mass/Vol]34.1 g/dL29.9 - 35.2 g/dLRay County Memorial HospitalV (RBC) [Entitic vol]88.8 fL81.0 - 99.0 fLSaint John's Saint Francis HospitalMONOCYTES ABSOLUTE AUTO0.5NOSaint Louis University HospitalMonocytes/100 WBC (Bld)5.7 % 1.7 - 12.0 %[facility] HospitalNEUTROPHILS ABSOLUTE AUTO6.2NOMS [facility] Neutrophils/100 WBC (Bld)73 %43.0 - 75.0 %[facility] HospitalPlatelet mean volume (Bld) [Entitic vol]9.8 fL9.5 - 13.5 fLNOMS HealthcareTBH EO #0.1NOMS Healthcare TBH MPZ714HIJU HealthcareTBH RBC3.83LowNOMS HealthcareTBH WBC8.5NOMS Healthcare CLINISYNCNOWA HealthcareUrinalysis macro (dipstick) panel (U)on 04-09-2025 Bilirubin, UANegativeNegative - 4(70) +++ mg/dLNOMS HealthcareBlood, UANegative Negative - 50 Dennis/mcLNOWA HealthcareClarity, UACloudyNOMS HealthcareColor, UA YellowNOMS HealthcareGlucose, UANegativeNegative - 2000(110) ++++ mg/dLNOWA HealthcareInterpretation and review of laboratory resultsAbnormalNOWA Healthcare Ketones, UANegativeNegative - 160(16) ++++ mg/dLNOWA HealthcareLeukocytes, UA NegativeNegative - 500+++ Wilman/mcLNOWA HealthcareNitrite, UANegativeNegative - PositiveNOWA HealthcarepH, UA85 - 9NOWA HealthcareProtein, UAPositiveNegative - 2000(20) ++++ mg/dLNOWA HealthcareSpec Grav, UA1.011 - 1.03NOW[facility] Healthcare Urobilinogen, UA1.00.2 - 12 mg/dLNOTwo [facility] HealthcareRECURRENT VAGINITIS (HTRX)on 05-81-7694MLSENEEKK NYNWXYL4FGBM HealthcareATOPOBIUM VAGINAE Not detectedNOWA HealthcareBVAB 2,3 (BACTERIAL VAGINOSIS ASSOCIATED BACTERIA 2, 3); MOBILUNCUS SZS4CZER HealthcareBVAB 2,3 (BACTERIAL VAGINOSIS ASSOCIATED BACTERIA 2, 3); MOBILUNCUS SPPNot detectedNOMS HealthcareCANDIDA ALBICANS, PARAPSILOSIS, FMCUJEEJRF2HUGO HealthcareCANDIDA ALBICANS, PARAPSILOSIS, TROPICALISNot detectedNOMS HealthcareCANDIDA AYBXDYHT7MSEU HealthcareCANDIDA GLABRATANot detectedNOMS HealthcareCANDIDA OOMANI1UHKY HealthcareCANDIDA KRUSEI Not detectedNOMS HealthcareCHLAMYDIA JNXQBMDVJEU6MKSA HealthcareCHLAMYDIA TRACHOMATISNot detectedNOMS HealthcareGARDNERELLA QHFCGTJTT6FFSY Healthcare GARDNERELLA VAGINALISNot detectedNOMS HealthcareMEGASPHAERA (TYPES 1, 2)0NOMS HealthcareMEGASPHAERA (TYPES 1, 2)Not detectedNOMS HealthcareMYCOPLASMA QYNLWGEPUT2KVPT HealthcareMYCOPLASMA GENITALIUMNot detectedNOMS Healthcare NEISSERIA GCNBBOKTOLJ0PVPG HealthcareNEISSERIA GONORRHOEAENot detectedNOMS HealthcareTRICHOMONAS ZEXTJAVWD0LMEY HealthcareTRICHOMONAS VAGINALISNot detected NOMS HealthcareNOMS HealthcareUS OB 14+ WEEKS ANATOMY SCANon 97-18-1940UF OB 14+ WEEKS ANATOMY SCANFINDINGS: Comparison December [...] Delivery: 07/19/25 Gestational Age as of 02/11/2025: 94b0kSljlwmdrye macro (dipstick) panel (U)on 01-35-5626Sxgeqrbwv, UANegativeNegative - 4(70) +++ mg/dLNOMS HealthcareBlood, UANegativeNegative - 50 Dennis/mcLNOMS HealthcareClarity, UAClearNOMS Healthcare Color, UAYellowNOMS HealthcareGlucose, UANegativeNegative - 2000(110) ++++ mg/dL NOMS HealthcareInterpretation and review of laboratory resultsNormalNOMS HealthcareKetones, UANegativeNegative - 160(16) ++++ mg/dLNOWA Healthcare Leukocytes, UANegativeNegative - 500+++ Wilman/mcLNOMS HealthcareNitrite, UA NegativeNegative - PositiveNOMS HealthcarepH, UA65 - 9NOMS HealthcareProtein, UA NegativeNegative - 2000(20) ++++ mg/dLNOMS HealthcareSpec Grav, UA1.011 - 1.03 NOMS HealthcareUrobilinogen, UA1.00.2 - 12 mg/dLNOMS HealthcareNOMS Healthcare Urinalysis macro (dipstick) panel (U)on 99-10-8325Qgwxckmft, UANegativeNegative - 4(70) +++ mg/dLNOMS HealthcareBlood, UANegativeNegative - 50 Dennis/mcLNOWA HealthcareClarity, UAClearNOMS HealthcareColor, UAYellowNOWA HealthcareGlucose, UANegativeNegative - 2000(110) ++++ mg/dLNOWA HealthcareInterpretation and review of laboratory resultsAbnormalNOMS HealthcareKetones, UANegativeNegative - 160(16) ++++ mg/dLNOWA HealthcareLeukocytes, UANegativeNegative - 500+++ Wilman/mcL NOMS HealthcareNitrite, UANegativeNegative - PositiveNOMS HealthcarepH, UA6.55 - 9NOMS HealthcareProtein, UATraceNegative - 2000(20) ++++ mg/dLNOWA Healthcare Spec Grav, UA1.011 - 1.03NOWA HealthcareUrobilinogen, UA0.20.2 - 12 mg/dLNOMS HealthcareNOMS HealthcareALL CBC WITH AUTO DIFFon 21-28-2964BHSVVVHBL ABSOLUTE JQHE1BTZL HealthcareBasophils/100 WBC (Bld)0.5 %0.2 - 2.0 %[facility] Eosinophils/100 WBC (Bld)1.6 %0.9 - 7.0 %NOMS HealthcareErythrocyte distribution width (RBC) [Ratio]12.9 %11.0 - 15.0 %NOMS HealthcareHematocrit (Bld) [Volume fraction]34.9 %Low36.0 - 48.0 %NOMS HealthcareHemoglobin (Bld) [Mass/Vol]12.1 g/dL12.0 - 16.0 g/dLSaint John's Saint Francis HospitalIMMATURE GRANULOCYTES ABS AUTO0.02NOSaint Louis University HospitalImmature granulocytes/100 WBC (Bld)0.2 %0.0 - 0.5 %[facility] Interpretation and review of laboratory resultsAbnoSelect Specialty Hospital - Harrisburg LYMPHOCYTES ABSOLUTE SBUO5QTDWSaint Louis University HospitalLymphocytes/100 WBC (Bld)22.1 %20.5 - 60.0 %[facility] HospitalH (RBC) [Entitic mass]30.5 pg26.7 - 34.0 pgRay County Memorial HospitalHC (RBC) [Mass/Vol]34.7 g/dL29.9 - 35.2 g/dLRay County Memorial HospitalV (RBC) [Entitic vol]87.9 fL81.0 - 99.0 fLSaint John's Saint Francis HospitalMONOCYTES ABSOLUTE AUTO0.5NOSaint Louis University HospitalMonocytes/100 WBC (Bld)5.3 %1.7 - 12.0 %[facility] HospitalNEUTROPHILS ABSOLUTE AUTO6.2NOMS [facility] CenterNeutrophils/100 WBC (Bld)70.3 %43.0 - 75.0 %[facility] HospitalPlatelet mean volume (Bld) [Entitic vol]9.5 fL9.5 - 13.5 fLSaint John's Saint Francis HospitalTB EO #0.1NOMS [facility] CenterTB JMI974HATFHCA Midwest Division RBC3.97LowNOHCA Midwest Division WBC8.8NOSaint Louis University HospitalCLINISYNCNCapital Region Medical CenterHCG ( test) Ql (U)on 85-40-2363Iudtgopzktnfhw and review of laboratory resultsAbnoSelect Specialty Hospital - HarrisburgPreg Test, UrPositiveNegativeColumbia Regional Hospital HealthcareUS OB TRANSVAGINALon 32-06-8474IB OB TRANSVAGINALEXAM: US OB TRANSVAGINAL HISTORY: Dating. [...] II, MD, PHD at 12-Dec-2024 08:26:33 AM [facility] TeleradiologyNormalNot AvailableComment on above:Order Comment: US OB TRANSVAGINAL No LMP recorded.Urinalysis macro (dipstick) panel (U)on 87-98-0162Iovhfvgzv, UA NegativeNegative - 4(70) +++ mg/dLNOMS HealthcareBlood, [...] - 12 mg/dLNOMS HealthcareNOMS HealthcareIGP,APTIMA HPV,AGE GDLNon 95-66-5712BPF GDLN ACOG TESTINGNote.NOMS HealthcareComment on above:TESTS RESULT FLAG UNITS REF RANGE LAB Clinician Provided Cytology Information Source.............Cervix;Endocervix No. of containers..01 ThinPrep Vial Francesco Colon... FLAG LEGEND: L-Low Normal,H-High Normal,LL-Alert Low,HH-Alert High <-Panic Low,>-Panic High,A-Abnormal,AA-Critical Abnormal Performed at: 01 =G [facility] [address] Aga Cade MD, IGP, RFX APTIMA HPV ASCUNote.[facility] HospitalComment on above:TESTS RESULT FLAG UNITS REF RANGE LAB DIAGNOSIS: 02 NEGATIVE FOR INTRAEPITHELIAL LESION OR MALIGNANCY. Specimen adequacy: 02 Satisfactory for evaluation. Endocervical and/or squamous metaplastic cells (endocervical component) are present. Performed by: 02 Genesis Dunn, Electro Mechanical Solar Technician ([facility]) . 02 Note: Note 03 The [...] Low,>-Panic High,A-Abnormal,AA-Critical Abnormal Performed at: 02 KWCYT [facility] [address] [place] [address] Pa Schilling MD, [address] [facility] [address] Aga Cade MD, Performed at: =G - [facility] [address] [id number] Wood Room Hand: Aga Cade MD, Phone: [phone] Performed at: [facility]Living[facility] [address] [place], [place] [id number] Wood Room Hand: Pa Schilling MD, Phone: [phone] BRUSH-SPATULA CERVIX ENDOCERVIX CLINISYCrockett HospitalCytology Cervical or vaginal smear or scraping study Ordered By: Winifred Bhatia on 18-51-9750MRQJDeaconess Incarnate Word Health System ACOG PANEL 2: 21 to 29on 08-28-2022..NormalThe [facility] Medical CenterComment on above:Result Comment: Performed at: WBPerformed By: #### [id number] #### [facility] Laboratory [address] [place] [address] Dr. Randee Renee Gdln ACOG Jyzfqwi21-52ZdkqotZbzGenesis HospitalComment on above:Performed By: #### [id number] #### [facility] [address] [place] [address] Dr. Randee CodyDIAGNOSIS:CommentPremier Health Upper Valley Medical Center on above: Result Comment: NEGATIVE FOR INTRAEPITHELIAL LESION OR MALIGNANCY. THIS SPECIMEN WAS RESCREENED PART OF OUR MANAGER TAX PROGRAM. Performed at: WBPerformed By: #### [id number] #### [facility] [address] [place] [address] Dr. Randee CodyMethodology:CommentPremier Health Upper Valley Medical Center on above: Result Comment: This liquid based ThinPrep(R) pap test was screened with the use of an image guided system. Performed at: WBPerformed By: #### [id number] #### [place] [address] [address] Randee CodyNote:CommentPremier Health Upper Valley Medical Center on above:Result Comment: The Pap smear is a screening test designed to aid in the detection of premalignant and malignant conditions of the uterine cervix. It is not a diagnostic procedure and should not be used as the sole means of detecting cervical cancer. Both false-positive and false-negative reports do occur. . Performed at: WBPerformed By: #### [id number] #### [facility] [address] [place] [address] Dr. Randee CodyPerformed by:CommentPremier Health Upper Valley Medical Center on above: Result Comment: Raya Humphries, Electro Mechanical Solar Technician (ASCP) Performed at: KWCYTPerformed By: #### [id number] #### [facility] [address] [place] [address] Dr. Randee CodyQC reviewed by:KalpanaPremier Health Upper Valley Medical Center on above:Result Comment: Fernanda Mena, Supervisory Electro Mechanical Solar Technician (ASCP) Performed at: WBPerformed By: #### [id number] #### [facility] [address] [place] [address] Dr. Randee CodyReflex Criteria:[facility] on above:Result Comment: The HPV DNA reflex criteria were not met with this specimen result therefore, no HPV testing was performed. . Performed at: WBPerformed By: #### [id number] #### [facility] [address] [place], [place] [address] Dr. Randee CodySpecimen adequacy:CommentNoGenesis HospitalComment on above:Result Comment: Satisfactory for evaluation. Endocervical and/or squamous metaplastic cells (endocervical component) are present. Performed at: WBPerformed By: #### [id number] #### [facility] [address] [place], [place] [address] Dr. Randee Cody Vital Signs Date TimeVital SignValuePerforming MyiejjwcwBdznzmon60-98-8372 10:32-0500Body mass index (BMI) [Ratio]38.44 kg/n7Rmwsh Suhail DO Work Phone: [phone] [place] [address]-10-2025 10:32-0500Body adrwls995.78 kgCorey Suhail DO Work Phone: [phone])[facility] [place], [place] [address]Ncxmdaewye98-86-9032 10:32-0500Diastolic blood mm[Hg]Mana Suhail DO Work Phone: [phone])[facility] [place], [place] [address]Bbpttbpmzc63-60-0899 10:32-0500Systolic blood agbnvthf903 mm[Hg]Mana Suhail DO Work Phone: [phone])[facility] [place], [place] [address]Mzfjlgzjwf89-61-4790 09:02-0400Body mass index (BMI) [Ratio]37.96 kg/m2Amy Ritu MADDOX Work Phone: [phone])[facility] [place], [place] [address]Pvxllbofyh55-24-5979 09:02-0400Body lylqsv478.47 kgKemi MADDOX Work Phone: [phone])[facility] [place], [place] [address]Kvabadvvdb83-19-3822 09:02-0400Diastolic blood gunllsfh56 mm[Hg]Kemi MADDOX Work Phone: [phone])[facility] [place], [place] [address]Xqffsdvvey83-21-1651 09:02-0400Systolic blood jeglwogp229 mm[Hg]Kemi MADDOX Work Phone: [phone] [place], [place] [address]10-02-2025 08:57-0400Body mass index (BMI) [Ratio]37.13 kg/d0JgfcqigaLe Thomposn NP Work Phone: [phone])[facility] [place], [place] [address]Tjmghpixjw06-06-3305 08:57-0400Body iikoks270.21 kgThomaslinda Jay INSURANCE AGENTS SUPERVISOR Work Phone: [facility] HospitalPptyaejthx76-03-3411 08:57-0400Diastolic blood ridbphbd65 mm[Hg]Le Jay INSURANCE AGENTS SUPERVISOR Work Phone: [facility] HospitalZhzlbkydyy26-23-9206 08:57-0400Systolic blood sqcmxmlo363 mm[Hg]Le Jay INSURANCE AGENTS SUPERVISOR Work Phone: [phone] [place], [place] [address]Zfcognzqwt95-32-9324 09:46-0400Body mass index (BMI) [Ratio]36.41 kg/m2Amy Ritu MADDOX Work Phone: [phone] [place], [place] [address]Lfnwerwxhy35-52-8008 09:46-0400Body bkvujj41.25 kgKemi MADDOX Work Phone: [facility] HospitalFugznjkgln44-49-9326 09:46-0400Diastolic blood fbeijoyp26 mm[Hg]Kemi MADDOX Work Phone: [phone] [place], [place] [address]Wikbmmcmmm39-87-2875 09:46-0400Systolic blood zwedhubp775 mm[Hg]Kemi MADDOX Work Phone: [phone]-Critical access hospital8[facility] HospitalXlybqidonq52-21-6721 14:04-0400Body mass index (BMI) [Ratio]35.3 kg/q1Rybfv Suhail DO Work Phone: [facility] HospitalSlhzmulimv91-78-8150 14:04-0400Body esoykq17.22 kgCorey Suhail DO Work Phone: [phone] [place], [place] [address]Spsztfxqhm15-66-9795 14:04-0400Diastolic blood arifeooj70 mm[Hg]Mana Suhail DO Work Phone: [phone]-Critical access hospital7[facility] HospitalPttlanlhmj27-13-9585 14:04-0400Systolic blood phnwowhh243 mm[Hg]Mana Suhail DO Work Phone: [phone]-Critical access hospital6[facility] HospitalJxmyumehrn78-86-8278 09:44-0400Body mass index (BMI) [Ratio]34.11 kg/w4Ndimj Suhail DO Work Phone: [phone] [place], [place] [address]Qlkzmuqsry71-05-6973 09:44-0400Body fidhus21.99 kgCorey Suhail DO Work Phone: [facility] HospitalBgtgtofpro80-89-0958 09:44-0400Diastolic blood snqyiijy83 mm[Hg]Mana Suhail DO Work Phone: NOSaint Louis University HospitalDqldtycwji35-79-6924 09:44-0400Systolic blood tubgsbwu373 mm[Hg]Mana Suhail DO Work Phone: [facility] HospitalGvhhpjnkbr13-24-0291 14:50-0400Body mass index (BMI) [Ratio]34.11 kg/m2[facility]06-05-2025 14:50-0400Body rdbwhi33.99 kgSSM Health Care02-24-2025 14:11-0500Body mass index (BMI) [Ratio]35.41 kg/j5Bhvmj Suhail DO Work Phone: [facility] HospitalItnpithjun51-46-2302 14:11-0500Body uqknex45.53 kgCorey Suhail DO Work Phone: [facility] HospitalDjcfybjbrx03-50-5507 14:11-0500Diastolic blood cmbqqulx69 mm[Hg]Mana Suhail DO Work Phone: [facility] HospitalYeflmcfgqx77-56-9807 14:11-0500Systolic blood pbxjrjco322 mm[Hg]Mana Suhail DO Work Phone: [facility] Encounters Encounter DateEncounter TypeCare ProviderFacilityStart: 05-18-2025 End: 09-51-4108Lqypcqod flow sheetCorey Suhail DO Work Phone: [facility] [place] OBGYNComment on above:Third trimester ([facility] 31 weeks gestation of ([facility])Start: 05-18-2025 End: 41-71-3060vrlbfcwzbhCUUOP FAZIONot AvailableStart: 04-30-2025 End: 46-38-4762Mesdfp flowsheetAmy Ritu MADDOX Work Phone: [facility] [place] OBGYNStart: 04-30-2025 End: 30-93-8510Gmywkn flowsGina MADDOX Work Phone: [facility] Franny OBGYNStart: 04-30-2025 End: 92-70-8451Okebltdl flow sheetKemi Regan PA Work Phone: [facility] [place] OBGYNComment on above:28 weeks gestation of ([facility]); Third trimester ([facility]); Size of fetus inconsistent with dates in third trimester ([facility])Start: 04-30-2025 End: 02-17-3354almmzrpzvuPEE Ambrosio AvailableStart: 04-13-2025 End: 43-67-6237Fzbswawza Result EncounterKristina Ajy INSURANCE AGENTS SUPERVISOR Work Phone: [facility] External Department UnsolicitedStart: 04-13-2025 End: 37-47-1004Oqwqhvufz Result EncounterKristina Jay INSURANCE AGENTS SUPERVISOR Work Phone: [facility] External Department UnsolicitedStart: 04-09-2025 End: 18-14-1916Zjskvt flowsheetKristina Jay INSURANCE AGENTS SUPERVISOR Work Phone: [facility] [place] OBGYNStart: 04-09-2025 End: 45-92-0804Rtxbqw flowsheetKristina Jay INSURANCE AGENTS SUPERVISOR Work Phone: [facility]anny OBGYNStart: 04-09-2025 End: 88-10-3204Frymqhwa flow sheetKristina Jay INSURANCE AGENTS SUPERVISOR Work Phone: [facility] Franny OBGYNComment on above:25 weeks gestation of ([facility]); Second trimester ([facility]); Diabetes mellitus screeningStart: 04-09-2025 End: 80-50-0462ihkicnmmkcETKFPPEW EBERLYNot AvailableStart: 03-11-2025 End: 45-24-8137Aifhaiel flow sheetKemi MADDOX Work Phone: [facility] [place] OBGYNComment on above:Second trimester ([facility]); 21 weeks gestation of ([facility])Start: 03-11-2025 End: 50-01-5473selhxtmmcvLQT RAMEYNot AvailableStart: 02-11-2025 End: 22-67-2957Ytlqjr flowsheetCorey Suhail DO Work Phone: [facility] Franny OBGYNStart: 02-11-2025 End: 25-09-1637Lmrzfc flowsheetCorey Suhail DO Work Phone: [facility]anny OBGYNStart: 02-11-2025 End: 20-45-4364Sjvvando Result EncounterCorey Suhail DO Work Phone: [facility] External Department UnsolicitedStart: 02-11-2025 End: 71-00-3220Bqzzmbxs flow sheetCorey Suhail DO Work Phone: NOFE [place] OBGYNComment on above:17 weeks gestation of ([facility]); Second trimester ([facility]); Screening, , for anatomic survey ([facility]); Exposure to STD; Vaginal dischargeStart: 02-11-2025 End: 40-08-2431qsnkpnqaucPGMJU FAZIONot AvailableStart: 01-12-2025 End: 71-14-4783Oykzts flowsheetCorey Suhail DO Work Phone: [facility] BCP OBStart: 01-12-2025 End: 61-24-8899Ckcypf flowsheetCorey Suhail DO Work Phone: [facility] OBStart: 01-12-2025 End: 44-04-0248Vnukrcly flow sheetCorey Suhail DO Work Phone: [facility]CP OBComment on above:Urinary tract infection without hematuria, site unspecified (Primary Dx); 13 weeks gestation of ([facility]); Second trimester ([facility]); NauseaStart: 01-12-2025 End: 02-76-0977dyddkvokcjMZIKE FAZIONot AvailableStart: 12-29-2024 End: 48-53-1487Vankrvqlm Result EncounterCorey Suhail DO Work Phone: noMS External Department UnsolicitedStart: 12-29-2024 End: 53-20-9735Wgduxsaev Result EncounterCorey Suhail DO Work Phone: noMS External Department UnsolicitedStart: 12-11-2024 End: 80-05-9870Kvnipl outpatient visit 5 minutesNoms Bcp Ob Suhail NurseNOMS BCP OBComment on above:GA: 6s1aHpsie: 12-11-2024 End: 56-39-7664sgimtogepcFKDWY FAZIONot AvailableStart: 09-01-2024 End: 68-57-5932Yawwre flowsheetCorey Suhail DO Work Phone: [facility] BCP OBStart: 09-01-2024 End: 29-59-1679Pudvkx flowsheetCorey Suhail DO Work Phone: [facility] BCP OBStart: 09-01-2024 End: 15-15-0913Uoclsctdj Result EncounterCorey Suhail DO Work Phone: noms External Department UnsolicitedStart: 09-01-2024 End: 06-58-8454Wbfchdz encounter procedureCorey Suhail DO Work Phone: [facility] Work Phone: Start: 09-01-2024 End: 68-44-4025Aafcdcby preventive med est patient 18-39 yrsCorey Suhail DO Work Phone: noms BCP OBComment on above:Well woman exam with routine gynecological examStart: 09-01-2024 End: 89-92-5358jcpijkhprpSPABD FAZIONot AvailableStart: 08-21-2022 End: 84-48-1715wjawwpastsVD DOCTOR MISCFacility:A9Bvrbr: 01-04-2018 End: 38-57-5867KqgdrirejrWdlurf J LampeFacility:[facility] [place] Procedures DateProcedureProcedure DetailPerforming ClinicianStart: 49-28-9717Swvab dip stick/tablet rgnt non-auto w/o micrscpCorey Suhail DO Work Phone: Start: 37-36-0063Mprtm dip stick/tablet rgnt non-auto w/o micrscpAmy Ritu PA Work Phone: Start: 90-97-9830XEG CBC WITH AUTO DIFFKristina Jay INSURANCE AGENTS SUPERVISOR Work Phone: Start: 99-63-5803Aqxbx dip stick/tablet rgnt non-auto w/o micrscpKristina Jay INSURANCE AGENTS SUPERVISOR Work Phone: Start: 21-62-5228GLQPPKURY VAGINITIS (HTRX)Mana Suhail DO Work Phone: Start: 41-76-1606Sihzr dip stick/tablet rgnt non-auto w/o micrscpCorey Suhail DO Work Phone: Start: 99-67-9679Goduc dip stick/tablet rgnt non-auto w/o micrscpCorey Suhail DO Work Phone: Start: 21-28-2151RTP CBC WITH AUTO DIFFCorey Suhail DO Work Phone: Start: 12-11-2024 End: 68-02-4097Vfxma dip stick/tablet rgnt non-auto w/o micrscpCorey Suahil DO Work Phone: Start: 59-12-7875BMZ,APTIMA HPV,AGE GDLNCorey Suhail DO Work Phone: Start: 87-03-4931Ezuz cerv/vag auto thin layer prep mnl screenCorey Suhail DO Work Phone: Plan of Treatment DateCare ActivityDetailAuthorStart: 09-07-2025 End: 45-97-9940Nllxkio encounter procedureNOMS BCP OBStart: 06-01-2025 End: 64-79-2479Jeqgmfk encounter /24/2025 10:50 AM EST Routine [facility] [address] [place] [address] [place] [address] Kemi Regan PA [address] [facility] [place] [address] NOM[facility] [place] OBGYNStart: 05-18-2025 End: 65-85-0907Nkcclwi encounter aipvrmdjd22/10/2025 10:40 AM EST Routine [facility] [address] [facility] [facility] [place] [id number] Mana Jang DO [address] [facility] [place] [address] [facility]anny OBGYNStart: 05-18-2025 End: 43-66-5886Piocbndxpchf / ancillary services stmbcjafve14/10/2025 10:00 AM EST Ancillary Procedure [facility] [address] [facility] [place] [address] [facility]anny OBGYNStart: 04-30-2025 End: 58-73-7657AZ for pregnancyUS OB follow up transabdominal approach Imaging Routine 28 weeks gestation of ([facility]) Size of fetus inconsistent with dates in third trimester ([facility]) Expected: 04/30/2025, Expires: 08/10[facility] Work Phone: comment on above:Expected: 04/30/2025, Expires: 08/31/2025Start: 04-30-2025 End: 23-42-9907Ocncrhz encounter procedureNOMS Franny OBGYNComment on above: ArrivedStart: 04-09-2025 End: 21-28-1067RLF panel - Blood by Automated countCBC Lab Routine Diabetes mellitus screening Expected: 04/09/2025 (Approximate), Expires: 04/09/2026[facility] Work Phone: comment on above:Expected: 04/09/2025 (Approximate), Expires: 04/09/2026Start: 04-09-2025 End: 38-61-2200Ctxwkdglpfd of glucose 1 hour after glucose challenge for glucose tolerance testGlucose tolerance, 1 hour Lab Routine Diabetes mellitus screening Expected: 04/09/2025 (Approximate), Expires: 04/09/2026[facility] HealthcareComment on above:Expected: 04/09/2025 (Approximate), Expires: 04/09/2026Start: 04-09-2025 End: 13-98-0790Eqvjygy encounter procedureNOMS Franny OBGYNComment on above: ArrivedStart: 03-11-2025 End: 99-11-0488Vkvghmj encounter xgayxngaj58/03/2025 9:50 AM EDT Routine [facility] RODRIGUEZ [address] [facility] [address] [place], [id number] Kemi Regan PA [address] [facility] [place] [address] [facility] Franny OBGYNStart: 03-11-2025 End: 35-72-2753Imnwxowijsoc / ancillary services bjnyqfnprl75/03/2025 8:30 AM EDT Ancillary Procedure [facility] GRAFN [address] [facility] [facility] [place] [phone] [facility] Franny OBGYNStart: 02-11-2025 End: 73-99-5044Dqcsf fetoprotein, maternalAlpha fetoprotein, maternal Lab Routine 17 weeks gestation of ([facility]) Second trimester ([facility]) Expected: 02/11/2025 (Approximate), Expires: 03/14/2025[facility] Comment on above:Expected: 02/11/2025 (Approximate), Expires: 03/14/2025Start: 02-11-2025 End: 41-96-2024RB for pregnancyUS OB 14+ weeks anatomy scan Imaging Routine Screening, , for anatomic survey ([facility]) Expected: 02/11/2025, Expires: 05/14/2025[facility] HealthcareComment on above:Expected: 02/11/2025, Expires: 05/14/2025Start: 02-11-2025 End: 84-26-9801Htkpjij encounter ukxubpkaf00/06/2025 1:50 PM EDT Routine [facility] [address] [place], [id number] Mana Jang, DO [address] [facility] [place] [address] ArrivedNOMS Franny OBGYNComment on above:ArrivedStart: 01-12-2025 End: 44-32-2935Brhqnzy encounter procedureNOMS BCP OBComment on above:Arrived Start: 12-11-2024 End: 57-74-6568UAE/RhABO/Rh Lab Routine Missed menses , unspecified gestational age Expected: 12/11/2024 (Approximate), Expires: 12/11/2025[facility] HealthcareComment on above:Expected: 12/11/2024 (Approximate), Expires: 12/11/2025Start: 12-11-2024 End: 52-68-8057Ghsye type and Indirect antibody screen panel - BloodType and screen Lab Routine Missed menses , unspecified gestational age Expected: 12/11/2024 (Approximate), Expires: 12/11/2025[facility] Work Phone: comment on above:Expected: 12/11/2024 (Approximate), Expires: 12/11/2025Start: 12-11-2024 End: 60-95-4917Oykid of abuse panel - Urine by Screen methodRapid drug screen, urine Lab Routine , unspecified gestational age Encounter for supervision of normal first in first trimester Expected: 12/11/2024 (Approximate), Expires: 12/11/2025[facility] HealthcareComment on above:Expected: 12/11/2024 (Approximate), Expires: 12/11/2025Start: 09-01-2024 End: 61-57-9228Dtlzqrn encounter voyqxixmr74/24/2025 2:00 PM EST Office Visit [facility] [address] [facility] [place] [address] Mana Jang, DO [address] [place] [address] [facility] OBComment on above:ArrivedStart: 96-78-0290Ewiirtmmr vaccinationInfluenza Vaccine (#1)[facility] HealthcareBacteria identified in Urine by CultureUrine culture Microbiology Routine Missed menses Ordered: 12/11/2024[facility] HealthcareComment on above:Ordered: 12/11/2024BC W Auto Differential panel - BloodCBC and differential Lab Routine Missed menses , unspecified gestational age Ordered: 12/11/2024[facility] HealthcareComment on above:Ordered: 12/11/2024HLAMYDIA TRACHOMATIS (GENITO/STI)CHLAMYDIA TRACHOMATIS (GENITO/STI) Lab Routine Exposure to STD Ordered: 02/11/2025[facility] HealthcareComment on above:Ordered: 02/11/2025ytology Cervical or vaginal smear or scraping studyPap Smear Pathology and Cytology Routine Well woman exam with routine gynecological exam Ordered: 09/01/2024[facility] Work Phone: comment on above:Ordered: 09/01/2024Hemoglobin A1c/Hemoglobin.total in BloodHemoglobin A1c Lab Routine Missed menses , unspecified gestational age Ordered: 12/11/2024[facility] HealthcareComment on above: Ordered: 12/11/2024Hepatitis B virus surface Ag [Presence] in Serum or Plasma by ImmunoassayHepatitis B surface antigen Lab Routine Missed menses , unspecified gestational age Ordered: 12/11/2024[facility] HealthcareComment on above: Ordered: 12/11/2024Hepatitis C virus Ab [Presence] in Serum or Plasma by ImmunoassayHepatitis C antibody Lab Routine Missed menses , unspecified gestational age Ordered: 12/11/2024[facility] HealthcareComment on above:Ordered: 12/11/2024HIV-1/HIV-2 antigen/antibody combination immunoassayHIV-1 and HIV-2 antibodies Lab Routine Missed menses , unspecified gestational age Ordered: 12/11/2024[facility] HealthcareComment on above:Ordered: 12/11/2024Neisseria gonorrhoeae DNA [Presence] in Unspecified specimen by SHAE with probe detection Neisseria gonorrhea DNA probe, direct Lab Routine Exposure to STD Ordered: 02/11/2025[facility] HealthcareComment on above:Ordered: 02/11/2025Reagin Ab [Presence] in Serum by RPRRPR Lab Routine Missed menses , unspecified gestational age Ordered: 12/11/2024[facility] HealthcareComment on above:Ordered: 12/11/2024Rubella antibody, IgGRubella antibody, IgG Lab Routine Missed menses , unspecified gestational age Ordered: 12/11/2024[facility] HealthcareComment on above:Ordered: 12/11/2024SURESWAB(R) ADVANCED VAGINITIS PLUS, TMASURESWAB(R) ADVANCED VAGINITIS PLUS, TMA Pathology and Cytology Routine Vaginal discharge Ordered: 02/11/2025[facility] [employer] Work Phone: comment on above:Ordered: 02/11/2025 Payers DatePayer CategoryPayerPolicy [id number] [id number] [id number] 2.840.1.602074.3.579.2.593 [id number] 2.840.1.839948.3.579.2.196100-54-8188Mwublrw [id number] 2.840.1.465857.3.57[id number] 2.16.840.1.521826.3.57[id number] 2.16.840.1.912451.3.57[id number] 2.16.840.1.446615.3.57[id number] 2.16.840.1.956118.3.57[id number] 2.16.840.1.449882.3.57[id number] 2.16.840.1.238229.3.57[id number] 2.16.840.1.774367.3.57[id number] 2.16.840.1.661362.3.57[id number] 2.16.840.1.515077.3.57[id number] 2.16.840.1.294803.3.579.2.55319-40-1746Ppls-[id number] Social History DateTypeDetailFacilityStart: 08-81-9086Ocrllof smoking status NHISNever smoked tobaccoNOMS HealthcareStart: 40-53-3983Jrzxbog use and exposureSmokeless tobacco non-userNOMS HealthcareStart: 01-01-2024 End: 29-82-7804Danufouin beverage intakeCurrent drinker of alcohol (finding)[facility] HealthcareStart: 01-01-2024 End: 81-37-7210Utmoker of Social functionNOMS HealthcareStart: 01-01-2024 End: 41-10-1820Iyoegvp use panelNOMS HealthcareStart: 65-81-3655Qgrkxph Comment OccasionalSaint John's Saint Francis HospitalStart: 78-95-5447Zhy assigned at birthNot on fileSaint John's Saint Francis HospitalStart: 81-46-7175DghqoucqhPKGZ HealthcareStart: 17-46-5369NayQpukjq [facility] Clinical Notes 09-01-2024 to 05-18-2025 Note Date & NcjzIwozKqkvvhdv77-40-4021 History of Present illness Narrative* Angelina Plunkett, [...] note reviewed. Exam conducted with a child care nurse present. Vitals: Estimated body mass index is 38.44 kg/m as calculated from the following: Height as of 08/21/22: 5' 5 . Weight as of this encounter: 231 lb. BP: 112/62 Patient's last menstrual period was 10/12/2024. Assessment/Plan ICD-10-CM 1. Third trimester ([facility]) Z34.93 2. 31 weeks gestation of ([facility]) Z3A.31 POCT urinalysis dipstick manually resulted Patient presents today for a routine obstetrics appointment. Patient is currently 31w1d with a Estimated Date of Delivery: 07/19/25. Patient to return to clinic in 2 weeks. Patient had growthscan prior to appointment. Documented by Angelina Plunkett LPN on behalf of: Mana Jang DO documented in this encounterSaint John's Saint Francis HospitalSimucniyaj73-23-5599 History of Present illness Narrative* TAN Edward [...] Assessment/Plan ICD-10-CM 1. 28 weeks gestation of ([facility]) Z3A.28 POCT urinalysis dipstick manually resulted 2. Third trimester ([facility]) Z34.93 POCT urinalysis dipstick manually resulted [...] behalf of: TAN Edward documented in this encounterSaint John's Saint Francis HospitalSybtgekpgb23-91-3048 History of Present illness Narrative* Le Thompson [...] note reviewed. Exam conducted with a child care nurse present. Vitals: Estimated body mass index is 37.13 kg/m as calculated from the following: Height as of 08/21/22: 5' 5 . Weight as of this encounter: 223 lb 1.9 oz. BP: 130/78 Patient's last menstrual period was 10/12/2024. ASSESSMENT & PLAN ICD-10-CM 1. 25 weeks gestation of ([facility]) Z3A.25 POCT urinalysis dipstick manually resulted 2. Second trimester ([facility]) Z34.92 POCT urinalysis dipstick manually resulted [...] of: Le Thompson NP documented in this encounterSaint John's Saint Francis HospitalYviyrwatod75-89-9808 History of Present illness Narrative* TAN Edward [...] ASSESSMENT & PLAN ICD-10-CM 1. Second trimester ([facility]) Z34.92 Urine dip 2. 21 weeks gestation of ([facility]) Z3A.21 Urine dip Return OB: Patient [...] behalf of: TAN Edward documented in this encounterSaint John's Saint Francis HospitalQwhccnqbqh51-50-2658 History of Present illness Narrative* Zhanna Gunter, JYOTHI - 02/11/2025 1:50 PM EDT Reason for Appointment: Patient ID: Maedlyn Lopez is a 29 y.o. female who [...] note reviewed. Exam conducted with a child care nurse present. Vitals: Estimated body mass index is 35.3 kg/m as calculated from the following: Height as of 08/21/22: 5' 5 . Weight as of this encounter: 212 lb 1.9 oz. BP: 124/72 Patient's last menstrual period was 10/12/2024. ASSESSMENT & PLAN ICD-10-CM 1. 17 weeks gestation of ([facility]) Z3A.17 POCT urinalysis dipstick manually resulted Alpha fetoprotein, maternal Alpha fetoprotein, maternal 2. Second trimester ([facility]) Z34.92 POCT urinalysis dipstick manually resulted Alpha fetoprotein, maternal Alpha fetoprotein, maternal 3. Screening, , for anatomic survey ([facility]) Z36.89 US OB 14+ weeks anatomy scan US OB 14+ weeks anatomy scan 4. Exposure to STD Z20.2 CHLAMYDIA TRACHOMATIS (GENITO/STI) Neisseria gonorrhea DNA probe, direct 5. Vaginal discharge N89.8 SURESWAB(R) ADVANCED VAGINITIS PLUS, TMA Return OB/Annual Exam: Patient presents today for a annual exam/routine obstetrics appointment. Patient is currently 03w4buyabukra. Patient states she is doing well but [...] of: Mana Jang DO documented in this encounterSaint John's Saint Francis HospitalScsrwjlesw00-70-0736 History of Present illness Narrative* Le Thompson [...] note reviewed. Exam conducted with a child care nurse present. Vitals: Estimated body mass index is 34.11 kg/m as calculated from the following: Height as of 08/21/22: 5' 5 . Weight as of this encounter: 205 lb. BP: 120/72 Patient's last menstrual period was 10/12/2024. ASSESSMENT & PLAN ICD-10-CM 1. Urinary tract infection without hematuria, site unspecified N39.0 2. 13 weeks gestation of ([facility]) Z3A.13 POCT urinalysis dipstick manually resulted 3. Second trimester ([facility]) Z34.92 POCT urinalysis dipstick manually resulted [...] of: Mana Jang DO documented in this encounterSaint John's Saint Francis HospitalFkvybcjyhu70-17-0218 History of Present illness Narrative* Kenia Carter [...] or undercooked meat, and [place]. Patient has also been advised to not [...] by: Kenia Carter LPN documented in this encounterSaint John's Saint Francis HospitalJuvulmgjly86-75-7319 History of Present illness Narrative* Angelina Plunkett [...] note reviewed. Exam conducted with a child care nurse present. Vitals: Estimated body mass index is [...] of: Mana Jang DO documented in this encounterNOWA HealthcareEvaluation note* Diagnosis Well woman exam with routine gynecological exam Routine gynecological examination documented in this encounter [facility] HealthcareEvaluation note* Diagnosis Missed menses , unspecified gestational age Encounter for supervision of normal first in first trimester documented in this encounter [facility] HealthcareEvaluation note* Diagnosis Urinary tract infection without hematuria, site unspecified- Primary 13 weeks gestation of ([facility]) Second trimester ([facility]) state, incidental Nausea Nausea alone documented in this encounter [facility] HealthcareEvaluation note* Diagnosis 17 weeks gestation of ([facility]) Second trimester ([facility]) state, incidental Screening, , for anatomic survey ([facility]) Encounter for anatomic survey Exposure to STD Vaginal discharge Leukorrhea, not specified as infective documented in this encounter [facility] HealthcareEvaluation note* Diagnosis Second trimester ([facility]) state, incidental 21 weeks gestation of ([facility]) documented in this encounter [facility] HealthcareEvaluation note* Diagnosis 25 weeks gestation of ([facility]) Second trimester ([facility]) state, incidental [...] and content) DATE CREATED AUTHOR 01/05/2018 [facility] DATE CREATED AUTHOR AUTHOR'S ORGANIZ ATION 08/29/2022 [facility] DATE CREATED AUTHOR AUTHOR'S ORGANIZ ATION 05/21/2025 [facility] EPIC Care Teams (unrecognized sec tion and content) Team MemberRelationshipSpecialtyStart DateEnd Date Taylor Roberto, INSURANCE AGENTS SUPERVISOR [address] [facility] [address] [place] [address] PCP - Alfredo Commercial03/09/24Team MemberRelationshipSpecialtyStart DateEnd Date Taylor Roberto, INSURANCE AGENTS SUPERVISOR [address] [facility] [address] [place] [address] PCP - Alfredo Commercial03/09/24 Reason for Visit [...] BE BASED ON THE PRIMARY CLINICAL RECORDS. [facility] [employer] [facility] provides no warranty or guarantee of the accuracy or completeness of information in this document.
[2025-07-08 09:34] LABS: Protein Creatinine Ratio Urine 0.20; Total Protein Urine Random 11.9 mg/dL (<=11.9)
[2025-07-08 09:46] LABS: Hematocrit 37.7 % (36.0-48.0); Hemoglobin 12.7 g/dL (12.0-16.0); Immature Granulocytes Abs Auto 0.08 10^3/uL (0.00-0.03); Immature Granulocytes Pct Auto 0.8 % (0.0-0.5); Lymphocytes Absolute Auto 1.7 10^3/uL (1.2-3.8); Mean Corpuscular HGB Conc 33.7 g/dL (29.9-35.2); Mean Corpuscular Hemoglobin 30.2 pg (26.7-34.0); Mean Corpuscular Volume 89.5 fL (81.0-99.0); Platelet Count 277 10^3/uL (150-450); Red Blood Count 4.21 10^6/uL (4.20-5.40); White Blood Count 9.5 10^3/uL (4.0-11.0)
[2025-07-08 09:52] LABS: INR 0.96; Partial Thromboplastin Time 26.3 sec (22.3-36.2); Prothrombin Time 10.1 sec (9.0-11.6)
[2025-07-08 10:14] LABS: Aspartate Amino Transferase 25 U/L (15-37); Blood Urea Nitrogen 8.0 mg/dL (7.0-18.0); Estimated GFR (African America >60 (>=60 mL/min/1.73m^2); Estimated GFR (Non-African Ame >60 (>=60 mL/min/1.73m^2); Uric Acid 4.7 mg/dL (2.6-6.0)
== END 2025-07-08 09:06 | disposition home or self-care (01) ==
PROVIDERS: Visit Provider Physician Assistant
DX: O13.3 Gestational [pregnancy-induced] hypertension without significant proteinuria, third trimester (principal); Z3A.38 38 weeks gestation of pregnancy
CPT/HCPCS: 36415; 76818; 82565; 82570; 83615; 84156; 84450; 84520; 84550; 85025; 85610; 85730